=== PATIENT | female | born 1940 | race Caucasian/White ===

== ENCOUNTER 2018-11-13 21:18 | Inpatient (IN) | payer MEDICARE, OTHER ==
[~2018-11-13] VITALS: Ht 167.6 cm; Wt 93.3 kg
--- NOTE | 2018-11-13 21:50 | ERD ---
ER Documentation Chief Complaint Chief Complaint BIB Private amb form [facility] crea 1.53 & BUN 68 byDr. Jin HPI 78-year-old female brought in from [facility] for elevated creatinine and BUN. She was sent by her primary care doctor, Dr. Jin. Patient is a history of respiratory failure with history of trach(removed) and gastrostomy, hypertension, heart failure. Otherwise history is limited as the patient is nonverbal. ROS Unable to obtain due to chronic encephalopathy Allergies Allergies: Coded Allergies: Penicillins (Verified Allergy, Unknown, 03/14/18) amitriptyline (Verified Allergy, Unknown, 03/14/18) diazepam (Verified Allergy, Unknown, 03/14/18) zolpidem (Verified Allergy, Unknown, 03/14/18) PMhx/Soc Medical and Surgical Hx: Unable to obtain History of Surgery: Yes (Tracheostomy, gastrostomy) Hx Respiratory Disorders: Yes (Chronic respiratory failure with tracheostomy) Hx Cardiac Disorders: Yes (Hypertension, heart failure) Hx Psychiatric Problems: Yes (Behavior disorder) FmHx Unable to obtain Physical Exam Vitals Vital Signs Date Temp Pulse Resp B/P (MAP) Pulse Ox O2 O2 Flow FiO2 Time Delivery Rate 11/13/18 101 18 136/80 95 Room Air 21:25 (98) 11/13/18 97.2 98 18 136/80 95 21:19 (98) Physical Exam INITIAL VITAL SIGNS: Reviewed by me GENERAL: Patient is lying on gurney, in no apparent distress. Obese HEAD: Normocephalic EYES: EOMI. PERRL. ENT: Mucous membranes dry, no erythema or tonsillar exudates. Airway patent. NECK: Supple. No masses. Full range of motion. No meningismus. No lymphadenopathy RESPIRATORY: Clear to auscultation bilaterally. No wheezing, No rales, No rhonchi. No accessory muscle use. No retractions. CV: Regular rate and rhythm. No murmurs, No rubs or gallops. ABDOMEN: Soft, non-distended, non-tender. No guarding. No rebound. No pulsatile mass. Bowel sounds normal. EXTREMITIES: Trace bilateral upper and lower extremities pitting edema. No clu bbing or cyanosis. Pulses symmetric. No deficits or delays. Calves non-tender. No cords. SKIN: Warm and dry. Decreased turgor. No obvious rash, petechiae or purpura. NEUROLOGIC: Awake and alert. Not oriented at all, patient's baseline. Moves all extremities equally to painful stimuli. Result Diagram: 11/13/18220111/13/182201 Results 24 hrs Laboratory Tests Test 11/13/18 22:02 White Blood Count 11.8 10^3/ul Red Blood Count 5.07 10^6/ul Hemoglobin 16.5 g/dl Hematocrit 55.1 % Mean Corpuscular Volume 108.7 fl Mean Corpuscular Hemoglobin 32.5 pg Mean Corpuscular Hemoglobin Concent 29.9 g/dl Red Cell Distribution Width 13.5 % Platelet Count 119 10^3/UL Mean Platelet Volume 14.5 fl Immature Granulocytes % 0.600 % Neutrophils % 79.5 % Lymphocytes % 14.3 % Monocytes % 4.3 % Eosinophils % 0.9 % Basophils % 0.4 % Nucleated Red Blood Cells % 0.0 /100WBC Immature Granulocytes # 0.070 10^3/ul Neutrophils # 9.4 10^3/ul Lymphocytes # 1.7 10^3/ul Monocytes # 0.5 10^3/ul Eosinophils # 0.1 10^3/ul Basophils # 0.1 10^3/ul Nucleated Red Blood Cells # 0.0 10^3/ul Sodium Level 175 mmol/L Potassium Level 3.8 mmol/L Chloride Level 138 mmol/L Carbon Dioxide Level 26 mmol/L Anion Gap 11 Blood Urea Nitrogen 76 mg/dl Creatinine 1.69 mg/dl Est Glomerular Filtrat Rate mL/min mL/min Glucose Level 219 mg/dl Calcium Level 10.8 mg/dl Current Medications Medications Dose Sig/Lolly Start Time Status Last (Trade) Ordered Route PRN Stop Time Admin Dose Reason Admin Sodium 2,000 ml @ Q2H STAT 11/13/18 DC 11/13/18 Chloride 1,000 mls/hr IV 22:48 22:53 11/14/18 00:47 Procedures/MDM EMERGENT LABS AND DIAGNOSTIC STUDIES: Lab Results above were reviewed and interpreted by me. CBC: Evidence of hemoconcentration with elevated hemoglobin and mildly elevated white blood cell count. BMP: Hypernatremia with evidence of renal failure with elevated BUN and creatinine, likely secondary to prerenal azotemia. No other electrolyte abnormality. No evidence of acidosis. Hyperglycemic. UA: Pending Radiology Results as interpreted by Radiology below were reviewed by Farzana Blair MD: Chest x-ray: IMPRESSION: 1. Cardiomegaly and mild pulmonary mass congestion with mild bibasilar atelectasis, left greater than right. 2. Sclerotic changes in the right humeral head with osseous fragmentation may represent the sequela of remote trauma, and findings appear new over interval since prior CT chest dated 04/20/2018. 3. Differential considerations include a sclerotic osseous metastatic deposit with fracture pathologic bone. 4. Consider plain film examination of the right shoulder for further evaluation. Physician Rui Date Time Electronically viewed and signed by Physician Rui on 11/14/2018 01:40 Initial Nursing notes reviewed. Previous Medical Records requested via the Electronic Health Record. EMERGENCY DEPARTMENT COURSE / MEDICAL DECISION MAKING: Patient is presenting for abnormal labs. Vitals are unremarkable. Labs showed evidence of hypernatremia with prerenal azotemia. I suspect all of this is likely secondary to dehydration. Although she has some signs of fluid overload on exam, I do believe she is intravascularly depleted. 2 L of IV fluids were started. Urinalysis was ordered to rule out infection. Will defer any further workup to the inpatient team. Critical Care Time: 45 minutes Treatments/Evaluations: Close monitoring and treatment of unstable vital signs, cardiorespiratory, and neurologic status, while maintaining tight balance of fluid, respiratory, and cardiac interventions. This time includes discussing the case with the patient and the patients family. This time does not include all procedures stated elsewhere in this record. This time also includes reviewing old records, labs and radiological studies. This time includes examining and re- examining the patient. Additionally, this time also includes arranging care with admitting and consulting physicians. Accepting Care Team: Current data and ongoing care discussed. Time: Time of admission Primary Provider: Dr. Evelin Vance Consulting: None Outstanding Data: UA Departure Diagnosis: Primary Impression: Hypernatremia Additional Impression: Acute renal failure Acute renal failure type: unspecified Qualified Codes: N17.9 - Acute kidney failure, unspecified Condition: Critical JOSUE BLAIR MD Nov 13, 2018 21:50
[2018-11-13] MEDS ORDERED: SOD CHLORIDE 0.9% 2,000 ML IV STA (22:48)
[2018-11-13] MEDS ORDERED: ACETAMINOPHEN 325 MG TAB PO PRN (23:30)
[2018-11-13] MEDS ORDERED: ONDANSETRON 4 MG INJ IV PRN (23:30)
[2018-11-14] VITALS (15 sets, daily range): BP systolic 108–245; BP diastolic 56–192; PULSE 56–104; RESP 18–26; Ht 167.6 cm; Wt 93.3 kg
[2018-11-14] MEDS ORDERED: ONDANSETRON 4 MG INJ IV PRN
[2018-11-14] MEDS ORDERED: NACL 0.9% 3 ML SYG IV SCH
[2018-11-14] MEDS: SOD CHLORIDE 0.9% 1,000 ML IV SCH ×2 (00:23→07:31)
[2018-11-14] MEDS ORDERED: ACET325T45 PO (04:13)
[2018-11-14] MEDS ORDERED: ALBU2.5V3 NEB (04:14)
[2018-11-14] MEDS ORDERED: ASCO500C7 PO (04:14)
[2018-11-14] MEDS ORDERED: CARV3.12 PO (04:35)
[2018-11-14] MEDS ORDERED: FURO20TA3 PO (04:35)
[2018-11-14] MEDS ORDERED: BEN50 PO (04:35)
[2018-11-14] MEDS ORDERED: BISA10SU75 PR (04:35)
[2018-11-14] MEDS ORDERED: LORA10TA3 PO (04:35)
[2018-11-14] MEDS ORDERED: IPRA3AMP29 INHALATION (04:35)
[2018-11-14] MEDS ORDERED: LORA0.5T PO (04:35)
[2018-11-14] MEDS ORDERED: LEVO50TA7 PO (04:35)
[2018-11-14] MEDS ORDERED: [UNRECOGNIZED DRUG - CODE] PO (04:35)
[2018-11-14] MEDS ORDERED: HYDR-3980 PO ×2 (04:35)
[2018-11-14] MEDS ORDERED: DOCU50LI23 GTB (04:35)
[2018-11-14] MEDS ORDERED: MAGN400O19 PO (04:35)
[2018-11-14] MEDS ORDERED: ESCI10TA48 PO (04:35)
[2018-11-14] MEDS ORDERED: GUAI-173 PO (04:35)
[2018-11-14] MEDS ORDERED: NA P230E RC (04:35)
[2018-11-14] MEDS ORDERED: NYST1000 PO (04:35)
[2018-11-14] MEDS ORDERED: CLON0.5T14 PO (04:35)
[2018-11-14] MEDS ORDERED: ASPI-903 PO (04:35)
[2018-11-14] MEDS ORDERED: FOLI-49 PO (04:35)
[2018-11-14] MEDS ORDERED: DONE10TA7 PO (04:35)
[2018-11-14] MEDS ORDERED: POLY17PO28 PO (04:41)
[2018-11-14] MEDS ORDERED: QUET150T2 PO (04:41)
[2018-11-14] MEDS ORDERED: POTA20LI15 PO (04:41)
[2018-11-14] MEDS ORDERED: ROPI1TAB PO (04:41)
[2018-11-14] MEDS ORDERED: CLOP75TA27 PO (04:41)
[2018-11-14] MEDS ORDERED: SPIR25TA PO (04:41)
[2018-11-14] MEDS ORDERED: SENN-120 PO (04:41)
[2018-11-14] MEDS ORDERED: RANI150T5 PO (04:41)
[2018-11-14] MEDS: FAMOTIDINE 20 MG INJ IV SCH (08:30)
[2018-11-14] MEDS: ENOXAPARIN 30 MG/0.3 ML SYG SC SCH (08:35)
[2018-11-14] MEDS: DEXTROSE 5% 1,000 ML IV SCH ×2 (11:32→22:13)
--- NOTE | 2018-11-14 12:39 | HP ---
Date/Time of Note Date/Time of Note DATE: 11/14/18 TIME: 12:31 Assessment/Plan VTE Prophylaxis Risk score (from Ns)>0 risk: 6 SCD applied (from Ns): Yes Pharmacological prophylaxis: LMWH Lines/Catheters IV Catheter Type (from Nrs): Peripheral IV Urinary Cath still in place: Yes Reason Cath still needed: urinary retention Assessment/Plan Assessment/Plan -Hypernatremia. Continue IV fluids. Dr. Edwards is asked to see patient in nephrology consultation. -Acute kidney injury -Cardiomegaly and pulmonary vascular congestion per chest x-ray -Altered mental status likely secondary to hypernatremia however will obtain CT of the brain to rule out any acute pathology, will obtain stat ABG, TSH. -GNR UTI, start Rocephin, follow-up on final urine culture. Further recommendations based on clinical course. Plan of care discussed with Dr. Jin Result Diagram: 11/14/18 0604 11/14/18 0604 Results 24hrs Laboratory Tests Test 11/13/18 22:02 11/14/18 00:43 11/14/18 06:04 White Blood Count 11.8 #H 13.7 H Red Blood Count 5.07 # 5.26 Hemoglobin 16.5 #H 17.2 H Hematocrit 55.1 #H 57.2 H Mean Corpuscular Volume 108.7 H 108.7 H Mean Corpuscular Hemoglobin 32.5 32.7 Mean Corpuscular 29.9 L 30.1 L Hemoglobin Concent Red Cell Distribution Width 13.5 13.6 Platelet Count 119 #L 103 L Mean Platelet Volume 14.5 #H 14.7 H Immature Granulocytes % 0.600 H 0.300 Neutrophils % 79.5 H 76.5 Lymphocytes % 14.3 L 16.9 Monocytes % 4.3 4.7 Eosinophils % 0.9 1.2 Basophils % 0.4 0.4 Nucleated Red Blood Cells % 0.0 0.0 Immature Granulocytes # 0.070 H 0.040 H Neutrophils # 9.4 H 10.5 H Lymphocytes # 1.7 2.3 Monocytes # 0.5 0.7 Eosinophils # 0.1 0.2 Basophils # 0.1 0.1 Nucleated Red Blood Cells # 0.0 0.0 Sodium Level 175 *H 177 *H Potassium Level 3.8 3.9 Chloride Level 138 H 141 H Carbon Dioxide Level 26 25 Anion Gap 11 11 Blood Urea Nitrogen 76 H 65 H Creatinine 1.69 H 1.47 H Est Glomerular Filtrat Rate mL/min Glucose Level 219 115 # Calcium Level 10.8 H 10.5 H Urine Color YELLOW Urine Clarity SLIGHTLY CLOUDY A Urine pH 6.0 Urine Specific [place] 1.025 Urine Ketones NEGATIVE Urine Nitrite NEGATIVE Urine Bilirubin NEGATIVE Urine Urobilinogen 1+ H Urine Leukocyte Esterase 3+ H Urine Microscopic RBC 4 Urine Microscopic WBC 112 H Urine Bacteria FEW A Urine Mucus FEW A Urine Hemoglobin 1+ H Urine Glucose NEGATIVE Urine Total Protein NEGATIVE Hemoglobin A1c 5.8 Total Bilirubin 0.5 Direct Bilirubin 0.00 Indirect Bilirubin 0.5 Aspartate Amino 39 Transf (AST/SGOT) Alanine 49 Aminotransferase (ALT/SGPT) Alkaline Phosphatase 130 H Total Protein 7.6 Albumin 4.1 Globulin 3.50 H Albumin/Globulin Ratio 1.17 Prealbumin 23.6 HPI/ROS Admit Date/Time Admit Date/Time Nov 13, 2018 at 23:15 Hx of Present Illness The patient is 78-year-old female with history of respiratory failure with tracheostomy and subsequent decannulation, [place] syndrome, anxiety disorder heart failure, hypertension, osteoarthritis, dementia with behavioral disturbances, hypothyroidism, GERD history of G-tube placement and removal, according to the records patient was on nectar thick [facility] at [facility]. [facility] from [facility] for hypernatremia and acute kidney injury. During evaluation in the emergency room patient was found to have sodium 177, an elevated BUN and creatinine, was giving IV fluids and admitted for further evaluation and management to telemetry floor. Patient is obtunded and cannot provide any medical history most of the history was obtained from medical records and talking to nursing staff. ROS UnAble to obtain due to patient's condition PMH/Family/Social Past Medical History per HPI Medications Current Medications Ondansetron HCl (Zofran Inj) 4 mg ER BRIDGE PRN IV NAUSEA/VOMITING; Start 11/13/18 at 23:30; Stop 11/14/18 at 23:29 Acetaminophen (Tylenol Tab) 650 mg ER BRIDGE PRN PO .MILD PAIN 1-3 OR TEMP; Start 11/13/18 at 23:30; Stop 11/14/18 at 23:29 IV Flush (NS 3 ml) 3 ml PER PROTOCOL IV ; Start 11/14/18 at 00:00 Ondansetron HCl (Zofran Inj) 4 mg Q6H PRN IV NAUSEA/VOMITING; Start 11/14/18 at 00:00 Acetaminophen (Tylenol Tab) 650 mg Q6H PRN PO .PAIN 1-3 OR TEMP; Start 11/14/18 at 00:00 Morphine Sulfate (morphine) 2 mg Q4H PRN IV .PAIN 7-10; Start 11/14/18 at 00:00 Famotidine (Pepcid Iv) 20 mg DAILY IV Last administered on 11/14/18at 08:30; Admin Dose 20 MG; Start 11/14/18 at 09:00 Enoxaparin Sodium (Lovenox) 30 mg DAILY SC Last administered on 11/14/18at 08:35; Admin Dose 30 MG; Start 11/14/18 at 09:00 Dextrose 1,000 ml @ 100 mls/hr Q10H IV Last administered on 11/14/18at 11:32; Admin Dose 100 MLS/HR; Start 11/14/18 at 11:30 Coded Allergies: Penicillins (Unverified Allergy, Unknown, 11/14/18) amitriptyline (Unverified Allergy, Unknown, 11/14/18) diazepam (Unverified Allergy, Unknown, 11/14/18) zolpidem (Unverified Allergy, Unknown, 11/14/18) Past Surgical History Past Surgical Hx: other (Status post tracheostomy and subsequent decannulation, status post G-tube placement and subsequent removal) Family History Significant Family History: no pertinent family hx Social History Unable to obtain due to patient's condition Smoking Status: Unknown if ever smoked Exam/Review of Systems Vital Signs Vitals Vital Signs Date Temp Pulse Resp B/P (MAP) Pulse Ox O2 O2 Flow FiO2 Time Delivery Rate 11/14/18 98.0 104 22 108/74 Nasal 12:15 (85) Cannula 11/14/18 96 08:06 Intake and Output 11/13/18 11/13/18 11/14/18 1515:00 23:00 07:00 IntakeIntake Total 1400 ml OutputOutput Total 150 ml BalanceBalance 1250 ml Exam Constitutional: frail Head: normocephalic, atraumatic Neck: supple Respiratory: diminished breath sounds Cardiovascular: regular rate and rhythm Gastrointestinal: soft, non-tender Extremities: normal pulses Neurological: unresponsive SHANE DOWNEY Nov 14, 2018 12:39
[2018-11-14] MEDS: CEFTRIAXONE 1 GM/50 ML (PMX) 50 ML IVPB SCH (14:27)
--- NOTE | 2018-11-14 16:47 | CONS ---
DATE OF ADMISSION: 11/13/2018 DATE OF CONSULTATION: 11/14/2018 TYPE OF CONSULTATION: Nephrology. REASON FOR CONSULTATION: Acute kidney injury, hypernatremia. PHYSICIAN REQUESTING CONSULT: Shahriar Jin MD HISTORY OF PRESENT ILLNESS: This is an 78-year-old female with a past medical history of chronic res piratory failure, status post tracheostomy with decannulation, history of dysphagia, status post PEG with PEG removal, history of behavior disorder, history of hypertension and CHF, who presents to [facility] from [facility] due to abnormal laboratory data. The patient was noted to have elevated BUN and creatinine at [facility]. As a result, she came into the emergency ro om. Upon arrival, the patient had laboratory data drawn which showed a sodium level of 175, BUN 76, creatinine 1.69. The patient had a chest x-ray which showed evidence of atelectasis, mild pulmonary congestion. The patient in the emergency room was started on IV hydration and transferred to telemet for evaluation. In terms of patient's renal history, the patient's previous baseline creatinine was noted to be 0.77 mg/dL in 05/2018. There have been no reports of any hemoptysis, hematemesis, hematochezia. PAST MEDICAL HISTORY: As stated above, history of respiratory failure, history of dysphagia, history of hypertension, heart failure, behavior disorder. PAST SURGICAL HISTORY: Status post tracheostomy, status post decannulation, status post PEG, status post PEG removal. FAMILY HISTORY: No family history of kidney disease. SOCIAL HISTORY: Lives at a [facility] facility. MEDICATIONS: Have been reviewed. REVIEW OF SYSTEMS: Unable to do adequate review of systems as the patient is obtunded. Pertinent po sitives stated in HPI, as obtained by reviewing medical records and speaking to hospital staff, other long negative. PHYSICAL EXAMINATION: VITAL SIGNS: Blood pressure is 129/83, respiratory rate 22, pulse 70, temperature 98.0. HEENT: Head is normocephalic. NECK: Supple. Noted previous ostomy. HEART: Tachycardic. LUNGS: Show diminished breath sounds at base. ABDOMEN: Soft, nontender to palpation. No rebound or guarding. EXTREMITIES: Negative for clubbing, cyanosis. No edema. DERMATOLOGIC: No rashes. The patient has poor skin turgor. MUSCULOSKELETAL: No joint effusions. NEUROLOGIC: Limited exam. The patient is unable to cooperate. LABORATORY DATA: Show sodium 177, potassium is 3.9, chloride 141, BUN 65, creatinine 1.47, calcium 7 .5. White count 13.7, hemoglobin 17.2, platelet count is 103. The patient's initial urinalysis was reviewed, which showed positive pyuria and patient's urine cultures grew out gram-negative rods. ASSESSMENT AND PLAN: This is an 78-year-old female who presents with: 1. Nonoliguric acute kidney injury with previous baseline creatinine of 0.77 mg/dL on 05/2018. Etio logy of acute kidney injury is secondary to hemodynamics, volume depletion, dehydration. The possibi lity of interstitial nephritis is a consideration. The patient's urinalysis was reviewed, which does show evidence of pyuria. Lower suspicion for acute glomerulonephritis or vasculitis given the ebonie nt's clinical presentation. Recommendation is to continue current medical management. Continue IV h ydration. Continue antibiotic therapy. We will continue to renally dose all meds, avoid nephrotoxin s. A full evaluation including a repeat urinalysis, urine electrolytes and renal ultrasound will be obtained. We will otherwise continue to monitor renal function daily. 2. Hypernatremia. The patient has a free water deficit of approximately 3.5 liters. Etiology is li casey due to insensible losses and decreased oral intake. Lower suspicion for diabetes insipidus. A full evaluation will be done. We will check urine sodium, urine osmolality. We will start the patie nt on D5 water 100 mL an hour. We will monitor serial sodium levels closely to ensure correction of no more than 10 to 12 mEq in 24-hour period. 3. Mineral bone disorder. The patient is hypocalcemic, possibly due to acute kidney injury. We rody l continue to monitor calcium levels closely. 4. Polycythemia. Etiology is likely due to volume depletion. Other possibilities will be considere d. We will continue to monitor closely. 5. Acute encephalopathy. Etiology is multifactorial and toxic metabolic due to electrolyte abnormal ities. Continue to monitor. Continue current treatment plan as stated above. 6. Urinary tract infection. The patient's urine culture is positive for gram-negative rods. Urinal ysis does show pyuria. We would recommend to start the patient on antibiotic therapy. Continue curr ent medical management and monitor. 7. History of respiratory failure. Thank you, Dr. Jin, for this interesting consult. It will be a pleasure to follow the patient w kike reaves throughout the hospital course. Dictated By: GLENN NATH/MARC Conf#: [id number] DID#: [id number] CC: CARLOS A LLANES MD;*EndCC*
[2018-11-14] MEDS ORDERED: ACETAMINOPHEN 650 MG SUPP PR PRN (21:30)
[2018-11-14] MEDS: morphine 2 MG INJ IV PRN (23:30)
[2018-11-15] VITALS (38 sets, daily range): BP systolic 93–160; BP diastolic 39–135; PULSE 75–99; RESP 11–26
[2018-11-15] MEDS ORDERED: POTASSIUM CHLORIDE 20 MEQ POWDER FOR ORAL SOLN NGT ONE (08:00)
[2018-11-15] MEDS: DEXTROSE 5% 1,000 ML IV SCH ×3 (08:05→18:09)
[2018-11-15] MEDS: FAMOTIDINE 20 MG INJ IV SCH (08:05)
--- NOTE | 2018-11-15 08:08 | PN ---
DATE: 11/15/2018 SUBJECTIVE: The patient is critically ill, was transferred from telemetry to intensive care unit. T he patient is currently on a facemask. No other acute events noted overnight. No hemoptysis, hemate mesis, or hematochezia. OBJECTIVE: VITAL SIGNS: Blood pressure is 93/61, respirations 18, pulse 98, temperature 99.7. HEENT: Head is normocephalic. NECK: Supple. HEART: Regular rate. LUNGS: Show diminished breath sounds at the base. ABDOMEN: Soft, nontender to palpation without rebound or guarding. EXTREMITIES: Negative for clubbing, cyanosis. Trace edema. DERMATOLOGIC: No rashes. MUSCULOSKELETAL: No joint effusion. NEUROLOGIC: No change in exam. MEDICATIONS: Reviewed. LABORATORY DATA: Reviewed. The patient's ABG was reviewed. Urinalysis was reviewed. The patient h as a FENa greater than 1%, urine osmolarity of 896, protein creatinine ratio 500 mg per gram of creat inine. IMAGING STUDIES: Chest x-ray, renal ultrasound was reviewed. Renal ultrasound was unremarkable. ASSESSMENT AND PLAN: 1. Nonoliguric acute kidney injury with previous baseline creatinine of 0.77 mg/dL. Etiology of acu te kidney injury is secondary to hemodynamics, volume depletion. The patient's renal function has sl owly been improving with IV hydration. The patient's urinalysis was reviewed. The patient has nongl omerular proteinuria, renal ultrasound shows no evidence of obstruction. At this point, we would con tinue current treatment plan. Continue IV hydration. Continue supportive care, renally dose all med icines. 2. Hypernatremia, etiology is secondary to insensible losses and decreased oral intake. The patient has no evidence of diabetes insipidus. The patient has a free water deficit of approximately 6 lite rs. At this point, we will continue hypertonic fluid. Continue free water flushes, monitor serum so dium levels closely to ensure correction of no more than 10 to 12 mEq in a 24-hour period. 3. Mineral bone disorder. We will continue to monitor calcium and phosphorus levels. 4. Polycythemia, likely due to volume depletion. Continue to monitor. 5. Acute encephalopathy, etiology is toxic metabolic. Continue to monitor. 6. Sepsis secondary to urinary tract infection. Continue current antibiotic regimen. Cultures have been reviewed. 7. Acute respiratory failure, etiology may be secondary to sepsis, atelectasis, questionable pneumon ia. Continue current medical management. Continue nebulizers. Continue face mask. Consider pulmon gage evaluation. 8. Hypokalemia. We will replete with potassium chloride. Dictated By: GLENN FLOYD DO NR/NTS Conf#: [id number] DID#: [id number] CC: CARLOS A LLANES MD;*EndCC*
[2018-11-15] MEDS: ENOXAPARIN 30 MG/0.3 ML SYG SC SCH (08:09)
[2018-11-15] MEDS: morphine 2 MG INJ IV PRN ×3 (09:22→18:52)
[2018-11-15] MEDS: CEFTRIAXONE 1 GM/50 ML (PMX) 50 ML IVPB SCH (12:54)
--- NOTE | 2018-11-15 16:31 | PN ---
Date/Time of Note Date/Time of Note DATE: 11/15/18 TIME: 16:28 Assessment/Plan VTE Prophylaxis Risk score (from Ns)>0 risk: 7 SCD applied (from [facility] [place] Yes SCD contraindicated: other Pharmacological prophylaxis: other Pharm contraindication: other Lines/Catheters IV Catheter Type (from [facility]): Peripheral IV Urinary Cath still in place: Yes Reason Cath still needed: urinary retention Assessment/Plan Assessment/Plan -Hypernatremia. Continue IV fluids. Dr. Edwards is asked to see patient in nephrology consultation. -Acute kidney injury -Cardiomegaly and pulmonary vascular congestion per chest x-ray -Altered mental status likely secondary to hypernatremia however will obtain CT of the brain to rule out any acute pathology, will obtain stat ABG, TSH. -GNR UTI, start Rocephin, follow-up on final urine culture. Critical care time spent 35 mins.Further recommendations based on clinical course. Plan of care discussed with Dr. Jin Result Diagram: 11/14/18 0604 11/15/18 1439 Results 24hrs Laboratory Tests Test 11/14/18 20:17 11/14/18 20:45 11/15/18 05:21 11/15/18 07:00 Bedside Glucose 93 Blood Gas Blood arterial Blood arterial Specimen Source Arterial Blood 11/14/2018 8:50: 11/15/2018 7:15: Date Drawn 21 PM 53 AM Arterial Blood 7.414 7.368 pH (Temp corrected) Arterial Blood 35.5 40.6 pCO2 (Temp correct) Arterial Blood 344.6 H 169.7 H pO2 (Temp corrected) Arterial Blood 22.2 22.8 HCO3 Arterial Blood -1.7 -2.3 Base Excess Arterial Blood 99.4 98.9 Oxygen Saturatio n Tru Test ACCEPTAB ACCEPTAB Arterial Blood Left Radial Left Radial Gas Puncture Site Arterial 0.3 0.3 Blood Carboxyhem oglobin Arterial Blood 0.4 0.3 Methemoglobin Blood Gas A-a O2 195.8 H 105.0 H Differential Oxyhemoglobin 98.7 98.3 Percent Blood Gas 37.0 37.0 Temperature Blood Gas MASK - NRB MASK - SIMPLE Modality FiO2 81.0 45.0 Blood Gas VLAD TM Notified Whom Blood Gas 11/14/2018 9:05: 11/15/2018 7:30: Notified Time 12 PM 33 AM Sodium Level 169 *H Potassium Level 3.4 L Chloride Level 141 H Carbon Dioxide 21 Level Anion Gap 7 Blood Urea 48 H Nitrogen Creatinine 1.30 H Est Glomerular Filtrat Rate mL/min Glucose Level 194 Calcium Level 9.6 Phosphorus Level 2.8 Magnesium Level 2.2 Total Bilirubin 1.0 Direct Bilirubin 0.00 Indirect 1.0 Bilirubin Aspartate Amino 48 H Transf (AST/SGOT ) Alanine 35 Aminotransferase (ALT/SGPT) Alkaline 125 H Phosphatase Total Protein 7.0 Albumin 3.5 Globulin 3.50 H Albumin/Globulin 1.00 Ratio Test 11/15/18 14:39 Sodium Level 161 *H Potassium Level 4.9 Chloride Level 135 H Carbon Dioxide 24 Level Anion Gap 2 L Blood Urea 44 H Nitrogen Creatinine 1.06 H Est Glomerular Filtrat Rate mL/min Glucose Level 161 Calcium Level 9.3 Subjective 24 Hr Interval Summary Subjective hx not possible: pt critical Constitutional: requiring O2 Exam/Review of Systems Exam Vitals Vital Signs Date Temp Pulse Resp B/P (MAP) Pulse Ox O2 O2 Flow FiO2 Time Delivery Rate 11/15/18 98.6 91 14 159/98 100 Nasal 2.0 16:00 (118) Cannula 11/15/18 45 02:20 Intake and Output 11/14/18 11/14/18 11/15/18 1515:00 23:00 07:00 IntakeIntake Total 500 ml 0 ml 800 ml OutputOutput Total 530 ml 270 ml BalanceBalance 500 ml -530 ml 530 ml Constitutional: frail Psych: nl mood/affect Eyes: EOMI ENMT: nl external ears & nose Respiratory: diminished breath sounds Cardiovascular: nl pulses, other Gastrointestinal: soft Musculoskeletal: muscle weakness Extremities: normal pulses Results Results 24hrs Laboratory Tests Test 11/14/18 20:17 11/14/18 20:45 11/15/18 05:21 11/15/18 07:00 Bedside Glucose 93 Blood Gas Blood arterial Blood arterial Specimen Source Arterial Blood 11/14/2018 8:50: 11/15/2018 7:15: Date Drawn 21 PM 53 AM Arterial Blood 7.414 7.368 pH (Temp corrected) Arterial Blood 35.5 40.6 pCO2 (Temp correct) Arterial Blood 344.6 H 169.7 H pO2 (Temp corrected) Arterial Blood 22.2 22.8 HCO3 Arterial Blood -1.7 -2.3 Base Excess Arterial Blood 99.4 98.9 Oxygen Saturatio n Tru Test ACCEPTAB ACCEPTAB Arterial Blood Left Radial Left Radial Gas Puncture Site Arterial 0.3 0.3 Blood Carboxyhem oglobin Arterial Blood 0.4 0.3 Methemoglobin Blood Gas A-a O2 195.8 H 105.0 H Differential Oxyhemoglobin 98.7 98.3 Percent Blood Gas 37.0 37.0 Temperature Blood Gas MASK - NRB MASK - SIMPLE Modality FiO2 81.0 45.0 Blood Gas NV TM Notified Whom Blood Gas 11/14/2018 9:05: 11/15/2018 7:30: Notified Time 12 PM 33 AM Sodium Level 169 *H Potassium Level 3.4 L Chloride Level 141 H Carbon Dioxide 21 Level Anion Gap 7 Blood Urea 48 H Nitrogen Creatinine 1.30 H Est Glomerular Filtrat Rate mL/min Glucose Level 194 Calcium Level 9.6 Phosphorus Level 2.8 Magnesium Level 2.2 Total Bilirubin 1.0 Direct Bilirubin 0.00 Indirect 1.0 Bilirubin Aspartate Amino 48 H Transf (AST/SGOT ) Alanine 35 Aminotransferase (ALT/SGPT) Alkaline 125 H Phosphatase Total Protein 7.0 Albumin 3.5 Globulin 3.50 H Albumin/Globulin 1.00 Ratio Test 11/15/18 14:39 Sodium Level 161 *H Potassium Level 4.9 Chloride Level 135 H Carbon Dioxide 24 Level Anion Gap 2 L Blood Urea 44 H Nitrogen Creatinine 1.06 H Est Glomerular Filtrat Rate mL/min Glucose Level 161 Calcium Level 9.3 Medications Medication Current Medications IV Flush (NS 3 ml) 3 ml PER PROTOCOL IV ; Start 11/14/18 at 00:00 Ondansetron HCl (Zofran Inj) 4 mg Q6H PRN IV NAUSEA/VOMITING; Start 11/14/18 at 00:00 Acetaminophen (Tylenol Tab) 650 mg Q6H PRN PO .PAIN 1-3 OR TEMP; Start 11/14/18 at 00:00 Morphine Sulfate (morphine) 2 mg Q4H PRN IV .PAIN 7-10 Last administered on 11/15/18at 13:26; Admin Dose 2 MG; Start 11/14/18 at 00:00 Famotidine (Pepcid Iv) 20 mg DAILY IV Last administered on 11/15/18at 08:05; Admin Dose 20 MG; Start 11/14/18 at 09:00 Enoxaparin Sodium (Lovenox) 30 mg DAILY SC Last administered on 11/15/18at 08:09; Admin Dose 30 MG; Start 11/14/18 at 09:00 Dextrose 1,000 ml @ 100 mls/hr Q10H IV Last administered on 11/15/18at 08:05; Admin Dose 100 MLS/HR; Start 11/14/18 at 11:30 Ceftriaxone Sodium 50 ml @ 100 mls/hr Q24H IVPB Last administered on 11/15/18at 12:54; Admin Dose 100 MLS/HR; Start 11/14/18 at 13:30 Acetaminophen (Tylenol Supp) 650 mg Q6H PRN NM ELEVATED TEMPERATURE Last administered on 11/14/18at 23:33; Admin Dose 650 MG; Start 11/14/18 at 21:30 Clonidine (Catapres) 0.1 mg Q6H PRN PO PRN SBP > 160; Start 11/15/18 at 00:00 Hydralazine HCl (Apresoline) 25 mg Q6 PRN PO PRN SBP > 160; Start 11/15/18 at 00:00 JASEN SOTOMAYOR Nov 15, 2018 16:31
[2018-11-16] VITALS (39 sets, daily range): BP systolic 55–125; BP diastolic 33–96; PULSE 73–96; RESP 10–25
[2018-11-16] MEDS: morphine 2 MG INJ IV PRN (00:18)
[2018-11-16] MEDS: DEXTROSE 5% 1,000 ML IV SCH ×2 (03:54→13:42)
--- NOTE | 2018-11-16 08:00 | PN ---
DATE: 11/16/2018 SUBJECTIVE: The patient remains in serious condition. The patient's mental status is slowly improvi ng. No other acute events noted. No hemoptysis, hematemesis or hematochezia. OBJECTIVE: VITAL SIGNS: Blood pressure is 120/70, respirations 11, pulse 80, temperature 98.6. I's and O's wer e reviewed. HEENT: Head is normocephalic. NECK: Supple. HEART: Regular rate. LUNGS: Show diminished breath sounds at the base. ABDOMEN: Soft, nontender to palpation without rebound or guarding. EXTREMITIES: Negative for clubbing, cyanosis. Trace edema. DERMATOLOGIC: No rashes. MUSCULOSKELETAL: No joint effusion. NEUROLOGIC: No change in exam. MEDICATIONS: The patient's medications have been reviewed. LABORATORY DATA: Shows sodium 158, potassium 3.7, chloride 127, BUN 30, creatinine 0.94, phosphorus is 2.4. White count 12.6, hemoglobin 13.2, platelet count is 56. The patient's imaging studies were reviewed. Cultures were reviewed. ASSESSMENT AND PLAN: 1. Nonoliguric acute kidney injury with previous baseline creatinine of 0.77 mg/dL. Etiology of SALVATORE is secondary to hemodynamics, volume depletion. The patient's renal function has slowly been improv ing with IV hydration. We will continue current treatment plan. Continue IV fluids, continue to yadiel ally dose all meds, avoid nephrotoxins. 2. Hypernatremia, etiology secondary to insensible losses, decreased oral intake. No evidence of di abetes insipidus as the patient's urinary osmolarity is appropriately elevated. The patient's sodium levels have slowly been improving with appropriate correction of 10 mEq per liter in the last 24 shelbi rs. Plan would be to continue current medical management. Continue D5 water at 100 mL an hour. Con tinue free water flushes 200 mL q.4 hours. Continue to monitor serial sodium levels closely to ensur e correction of no more than 10 to 12 mEq in a 24-hour period. 3. Mineral bone disorder. The patient is hypophosphatemic. Will replete with sodium phosphate. 4. Acute encephalopathy, etiology is toxic metabolic. Continue to monitor. 5. Sepsis secondary to urinary tract infection. Continue current antibiotic regimen. 6. Acute respiratory failure secondary to sepsis, atelectasis. Continue current medical management, nebulizers. 7. Hypokalemia. resolved. Dictated By: GLENN NATH/MARC Conf#: [id number] DID#: [id number] CC: CARLOS A LLANES MD;*EndCC*
[2018-11-16] MEDS: FAMOTIDINE 20 MG INJ IV SCH (08:53)
[2018-11-16] MEDS: NEUTRA-PHOS 250 MG PACKET GTB SCH ×2 (08:53→21:21)
[2018-11-16] MEDS: ENOXAPARIN 30 MG/0.3 ML SYG SC SCH (08:55)
[2018-11-16] MEDS: CEFTRIAXONE 1 GM/50 ML (PMX) 50 ML IVPB SCH (13:42)
--- NOTE | 2018-11-16 20:04 | HP ---
DATE OF ADMISSION: 11/13/2018 LOCATION: Intensive care unit. SUBJECTIVE: Followup on hyponatremia, acute kidney injury, metabolic encephalopathy, urinary tract i nfection, history of CHF, dementia and hypothyroidism. The patient is breathing comfortably, remains awake; however, confused, occasionally responds appropriately. The patient's blood pressure has bee n fluctuating between 95 systolic up to 116. PHYSICAL EXAMINATION: GENERAL: The patient looks frail and weak. The patient was noted to be lethargic but arousable and attempts to follow simple commands. VITAL SIGNS: Temperature 98.7, pulse 82, respirations 20, blood pressure 95/69, O2 saturation 99% on 2 liters nasal cannula. HEENT: Atraumatic, normocephalic. Conjunctivae and lids normal. NECK: Old tracheostomy scar. She does not have any signs of infection or drainage. CHEST: Fairly clear. No use of accessory muscles. CARDIOVASCULAR: S1, S2 normal. The patient is in sinus rhythm on monitor. ABDOMEN: Soft, nondistended, nontender, no palpable mass. EXTREMITIES: No edema, clubbing or cyanosis. NEUROLOGICAL: The patient is weak, lethargic, but does follow simple commands. She has generalized weakness in all extremities. LABORATORY DATA: Labs done this morning, WBC 12.6, hemoglobin 13.2, platelet 56. Sodium 150, down f rom 158 yesterday, BUN 25, creatinine 0.7, glucose 139, calcium 9 and magnesium 1.9. IMPRESSION AND PLAN: 1. Metabolic encephalopathy, slightly better with improvement in sodium and acute kidney injury. Co ntinue to monitor in the ICU. The patient still is not awake enough to eat. We will continue n.p.o. and give IV fluids. Due to hyponatremia, the patient is receiving D5W. 2. Sepsis due to urinary tract infection. Continue IV Rocephin. The patient does continue to have thrombocytopenia probably due to sepsis. We will continue to monitor. We will hold off on Lovenox a t this time. 3. History of hypertension. Currently, the patient's blood pressure is well controlled. 4. Hypothyroidism. Due to n.p.o. status, Synthroid is on hold. The patient's TSH was 0.49. 5. Hypophosphatemia. Continue sodium phosphate. The patient remains critically ill. We will mikey nue to monitor in the ICU. Total critical care time spent 30 minutes. Dictated By: WALDO CLEARY MD AB/MARC Conf#: [id number] DID#: [id number] CC: CARLOS A LLANES MD;*EndCC*
[2018-11-17] VITALS (16 sets, daily range): BP systolic 109–148; BP diastolic 49–103; PULSE 82–94; RESP 13–21
[2018-11-17] MEDS: DEXTROSE 5% 1,000 ML IV SCH (00:33)
[2018-11-17] MEDS ORDERED: VANCOMYCIN IV PER PHARMACY XX SCH (02:30)
[2018-11-17] MEDS ORDERED: VANCOMYCIN HCL 1.5 GM in SOD CHLORIDE 0.9% 250 ML IVPB ONE (04:00)
[2018-11-17] MEDS ORDERED: POTASSIUM CHLORIDE 20 MEQ POWDER FOR ORAL SOLN GTB ONE (05:30)
[2018-11-17] MEDS ORDERED: POTASSIUM CHLORIDE 20 MEQ POWDER FOR ORAL SOLN NGT ONE (07:30)
[2018-11-17] MEDS ORDERED: MAGNESIUM SULFATE 2 GM/50 ML 50 ML IVPB ONE (08:00)
--- NOTE | 2018-11-17 08:14 | PN ---
DATE: 11/17/2018 SUBJECTIVE: The patient is clinically improving, more alert. No acute events noted. No hemoptysis, hematemesis or hematochezia. OBJECTIVE: VITAL SIGNS: Blood pressure is 148/76, respirations 17, pulse 89, temperature 98.9. I's and O's rev iewed. HEENT: Head is normocephalic. NECK: Supple. HEART: Regular rate. LUNGS: Show diminished breath sounds at the base. ABDOMEN: Soft, nontender to palpation without rebound or guarding. EXTREMITIES: Negative for clubbing, cyanosis. Trace edema. DERMATOLOGIC: No rashes. MUSCULOSKELETAL: No joint effusion. NEUROLOGIC: No change in exam. MEDICATIONS: Reviewed. LABORATORY DATA: Has been reviewed. The patient has a sodium 145, potassium 2.8, magnesium 1.9. Wh ite count is 7.4, hemoglobin 11.4. MICROBIOLOGY: Reviewed. ASSESSMENT AND PLAN: 1. Nonoliguric acute kidney injury with previous baseline creatinine of 0.7 mg/dL. Etiology of acut e kidney injury is secondary to hemodynamics, volume depletion. The patient's renal function has imp roved with IV fluids. Will continue current treatment plan. Continue supportive care, renally dose all meds. Will deescalate IV fluids. 2. Hypernatremia. Etiology is secondary insensible losses, decreased oral intake. The patient's so dium levels have been improving. We will continue free water flushes of 200 mL q.[address] hypotonic IV fluids and continue to monitor serial sodium levels. 3. Hypokalemia. Etiology is secondary to total body deficit and hypomagnesemia. Will continue to r eplete with potassium chloride, adjust IV fluids, correct underlying hypomagnesemia. 4. Hypomagnesemia. Replete with magnesium sulfate. 5. Mineral bone disorder. Monitor calcium and phosphorus levels. 6. Acute encephalopathy. Etiology is toxic metabolic. 7. Sepsis secondary to urinary tract infection. The patient is on antibiotic therapy, continue. 8. Acute respiratory failure secondary to sepsis, atelectasis. The patient is clinically improving. Continue medical management. Dictated By: GLENN NATH/MARC Conf#: [id number] DID#: [id number] CC: CARLOS A LLANES MD;*End*
[2018-11-17] MEDS: D5W-0.45 NACL + KCL 40 MEQ 1,000 ML IV SCH (08:47)
[2018-11-17] MEDS: FAMOTIDINE 20 MG INJ IV SCH (08:48)
[2018-11-17] MEDS: NEUTRA-PHOS 250 MG PACKET GTB SCH ×2 (08:48→20:18)
[2018-11-17] MEDS: CEFTRIAXONE 1 GM/50 ML (PMX) 50 ML IVPB SCH (13:28)
[2018-11-18 01:25] VITALS: BP 126/58; PULSE 91; RESP 18
[2018-11-18] MEDS: D5W-0.45 NACL + KCL 40 MEQ 1,000 ML IV SCH ×2 (04:00→08:07)
[2018-11-18] MEDS: VANCOMYCIN HCL 1.25 GM in DEXTROSE 5% 250 ML IVPB SCH (04:39)
[2018-11-18 07:32] VITALS: BP 123/62; PULSE 85; RESP 16
[2018-11-18] MEDS: FAMOTIDINE 20 MG INJ IV SCH (08:20)
[2018-11-18] MEDS: NEUTRA-PHOS 250 MG PACKET GTB SCH ×2 (08:20→21:00)
[2018-11-18] MEDS: ASCORBIC ACID 500 MG TAB NGT SCH (08:20)
[2018-11-18] MEDS: ZINC SULFATE 220 MG CAP NGT SCH (08:21)
--- NOTE | 2018-11-18 08:41 | PN ---
DATE: 11/18/2018 SUBJECTIVE: The patient was transferred from the intensive care unit to med/surg. No other events n oted. No hemoptysis, hematemesis or hematochezia. OBJECTIVE: VITAL SIGNS: Blood pressure is 123/62, pulse 85, respirations 16, temperature 98.9. HEENT: Head is normocephalic. NECK: Supple. HEART: Regular rate. LUNGS: Show diminished breath sounds at the base. ABDOMEN: Soft, nontender to palpation without rebound or guarding. EXTREMITIES: Negative for clubbing, cyanosis, no edema. DERMATOLOGIC: No rashes. MUSCULOSKELETAL: No joint effusion. NEUROLOGIC: No change in exam. MEDICATIONS: The patient's medications have been reviewed. LABORATORY DATA: Reviewed. The patient's phosphorus is 2.1. White count 7.4, hemoglobin 11.5, plat elet count 70. ASSESSMENT AND PLAN: 1. Nonoliguric acute kidney injury with previous baseline creatinine of 0.7 mg/dL. Etiology of acut e kidney injury is secondary to hemodynamics, volume depletion. The patient's renal functions has im proved. We will continue current treatment plans, supportive care, renally dose all medicines, mikey nue to deescalate IV fluids. 2. Hypernatremia, improved. Continue free water flushes. Continue hypertonic fluid. Monitor close ly. 3. Hypokalemia. Continue to monitor and replete. 4. Hypomagnesemia. Continue to monitor and replete. 5. Mineral bone disorder. The patient is hypophosphatemic. Replete with potassium phosphate. 6. Acute encephalopathy, etiology is toxic metabolic. 7. Sepsis secondary to urinary tract infection. Continue current antibiotic regimen. 8. Acute respiratory failure secondary to sepsis, atelectasis. The patient is clinically improving. Continue current treatment plan. Dictated By: GLENN FLOYD DO NR/NTS Conf#: [id number] DID#: [id number] CC: CARLOS A LLANES MD;*EndCC*
[2018-11-18] MEDS ORDERED: NEUTRA-PHOS 250 MG PACKET GTB SCH (09:00)
--- NOTE | 2018-11-18 12:39 | CONS ---
Assessment/Plan Assessment/Plan Hospital Course (Demo Recall) #Thrombocytopenia -this may sepsis related or 2/2 to her antibiotics. -still need to rule out DIC and TTP. will check DIC panel, LDH and peripheral smear -would not transfuse platelets at this time unless platelet count is < 20K -check abdominal ultrasound -r/o viral etiology. will check HIV and hepatitis #Urosepsis -continue antibiotics #ARF -management per nephrology. CR now normal #hypernatremia -improved -Na 144 Thank you for the opportunity to participate in this patients care A total of 40 minutes of face to face time was spent speaking with the patient, of which greater than 50% was spent in counseling and coordination of care and the detailed question and answer session. Consultation Date/Type/Reason Admit Date/Time Nov 13, 2018 at 23:15 Date of Consultation: Nov 18, 2018 Type of Consult Hematology Reason for Consultation thrombocytopenia Requesting Provider: WLADO CLEARY MD Date/Time of Note DATE: 11/18/18 TIME: 12:34 Hx of Present Illness 78 yo female, with h/o respiratory failure with multiple medical problems including tracheostomy, hypothyrdoism, dementia, Guillan Ray, anxiety and Heart failure who presented to ER from her long term with severe hypernatremia and Na 177. Pt was initially treated in the ICU and since been transferred to med/surg. The patient is currently being treated for urosepsis and GPC in blood. On admission on 11/13/18 pts platelets were noted to be 119 and on 11/16/18 there were noted to drop to 56. Yesterday they did increase to 70. PT has no evidence of GI bleed, no signs of spontaneous bleeding or bruising. She has not needed any blood or platelet transfusion since admission. Constitutional: disoriented Eyes: no complaints ENT: no complaints Respiratory: no complaints, pain Cardiovascular: no complaints Gastrointestinal: no complaints Genitourinary: no complaints Musculoskeletal: no complaints Skin: no complaints Neurologic: no complaints Past Medical History respiratory failure with tracheostomy and subsequent decannulation Hannah Ray syndrome anxiety disorder heart failure hypertension osteoarthritis dementia with behavioral disturbances hypothyroidism GERD history of G-tube placement and removal Home Meds Reported Medications Spironolactone* (Aldactone*) 25 Mg Tablet, 25 MG PO DAILY for HTN, #30 TAB 11/14/18 Quetiapine Fumarate* (Seroquel* XR) 150 Mg Tab.sr.24h, 150 MG PO TID, #30 TAB 11/14/18 Sennosides* (Senna Lax*) 8.6 Mg Tablet, 2 TAB PO QHS, TAB 11/14/18 Ropinirole Hcl* (Ropinirole Hcl*) 1 Mg Tablet, 1 MG PO BID for RLS, TAB 11/14/18 Ranitidine Hcl* (Ranitidine Hcl*) 150 Mg Tablet, 150 MG PO Q12, #60 TAB 11/14/18 Potassium Chloride* (Potassium Chloride*) 20 Meq/15 Ml Liquid, 20 MEQ PO DAILY, ML 11/14/18 Polyethylene Glycol* (Polyethylene Glycol*) 17 Gm Powd.pack, 17 GM PO DAILY, #30 PACKET 11/14/18 Clopidogrel Bisulfate (Clopidogrel) 75 Mg Tablet, 75 MG PO DAILY, #30 TAB 11/14/18 Nystatin (Nystatin) 100,000 Unit/1 Ml Oral.susp, 5 ML PO Q6, #60 ML 11/14/18 Multivitamins W-Minerals (Support) 237 Ml Liquid, 30 ML PO DAILY for SUPPLEMENT 11/14/18 Magnesium Hydroxide* (Milk Of Magnesia*) 400 Mg/5 Ml Oral.susp, 30 ML PO Q12H for CONSTIPATION, ML 11/14/18 Lorazepam* (Lorazepam*) 0.5 Mg Tablet, 0.5 MG PO Q6 PRN for ANXIETY, TAB 11/14/18 Loratadine* (Loratadine*) 10 Mg Tablet, 10 MG PO DAILY for ALLERGY, #30 TAB 11/14/18 Levothyroxine Sodium* (Levothyroxine Sodium*) 50 Mcg Tablet, 50 MCG PO BEFORE BREAKFAST, #30 TAB 11/14/18 Ipratropium-Albuterol (Ipratropium-Albuterol) 0.5-3 Mg/3 Ml Ampul.neb, 3 ML INHALATION Q6, #30 VIAL 11/14/18 Hydrocodone/Acetaminophen (Iola 10-325 Tablet) 1 Each Tablet, 2 EACH PO Q4, TAB GIVE 2 TABLET BY MOUTH EVERY 4HOURS NEEDED FOR SEVERE PAIN 6-10 11/14/18 Hydrocodone/Acetaminophen ([place]ola 10-325 Tablet) 1 Each Tablet, 1 EACH PO Q4H, TAB 11/14/18 Guaifenesin* (Tussin*) 100 Mg/5 Ml Syrup, 10 ML PO Q4 PRN for COUGH, ML 11/14/18 Furosemide* (Furosemide*) 20 Mg Tablet, 20 MG PO DAILY, #60 TAB GIVE 20MG BY MOUTH ONE TIME A DAY EVERY OTHER DAYRELATED TO HEART FAILURE 11/14/18 Folic Acid* (Folic Acid*) 1 Mg Tablet, 1 MG PO DAILY for SUPPLEMENT, TAB 11/14/18 Na Phos,M-B/Na Phos,Di-Ba (Fleet Enema Extra) 230 Ml Enema, 230 ML RC 72H PRN for CONSTIPATION, ENEMA 11/14/18 Escitalopram Oxalate* (Escitalopram Oxalate*) 10 Mg Tablet, 10 MG PO DAILY for DEPRESSION, #30 TAB 11/14/18 Donepezil* (Donepezil*) 10 Mg Tablet, 10 MG PO QHS for DEMENTIA, #30 TAB 11/14/18 Docusate Sodium* (Docusate Sodium* Liq) 50 Mg/5 Ml Liquid, 100 MG GTB Q12H for CONSTIPATION, ML 11/14/18 Carvedilol* (Coreg*) 3.125 Mg Tablet, 6.25 MG PO BID for HTN, #60 TAB 11/14/18 Clonazepam* (Clonazepam*) 0.5 Mg Tablet, 0.5 MG PO BID, TAB 11/14/18 Bisacodyl* (Bisacodyl*) 10 Mg Supp, [address] DAILY, SUPP 11/14/18 Diphenhydramine Hcl* (Benadryl*) 50 Mg Cap, 50 MG PO Q6 PRN for ITCHING, CAP 11/14/18 Aspirin* (Aspirin* Chew) 81 Mg Tab.chew, 81 MG PO DAILY, TAB.CHEW 11/14/18 Ascorbic Acid* (Vitamin C*) 500 Mg Capsule.sa, 500 MG PO DAILY, CAP 11/14/18 Albuterol Sulfate* (Albuterol Sulfate* Neb) 0.083%-3 Ml Neb, 1.25 MG NEB Q6H PRN for BRONCHOSPASM/WHEEZING, #30 VIAL 11/14/18 Acetaminophen* (Acetaminophen*) 325 Mg Tablet, 650 MG PO Q4H PRN for PAIN AND OR ELEVATED TEMP, #30 TAB 11/14/18 Medications Current Medications IV Flush (NS 3 ml) 3 ml PER PROTOCOL IV ; Start 11/14/18 at 00:00 Ondansetron HCl (Zofran Inj) 4 mg Q6H PRN IV NAUSEA/VOMITING; Start 11/14/18 at 00:00 Acetaminophen (Tylenol Tab) 650 mg Q6H PRN PO .PAIN 1-3 OR TEMP; Start 11/14/18 at 00:00 Morphine Sulfate (morphine) 2 mg Q4H PRN IV .PAIN 7-10 Last administered on 11/16/18at 00:18; Admin Dose 2 MG; Start 11/14/18 at 00:00 Famotidine (Pepcid Iv) 20 mg DAILY IV Last administered on 11/18/18at 08:20; Admin Dose 20 MG; Start 11/14/18 at 09:00 Enoxaparin Sodium (Lovenox) 30 mg DAILY SC Last administered on 11/16/18at 08:55; Admin Dose 30 MG; Start 11/14/18 at 09:00; Status Hold Ceftriaxone Sodium 50 ml @ 100 mls/hr Q24H IVPB Last administered on 11/17/18at 13:28; Admin Dose 100 MLS/HR; Start 11/14/18 at 13:30 Acetaminophen (Tylenol Supp) [address] ELEVATED TEMPERATURE Last administered on 11/14/18at 23:33; Admin Dose 650 MG; Start 11/14/18 at 21:30 Clonidine (Catapres) 0.1 mg Q6H PRN PO PRN SBP > 160; Start 11/15/18 at 00:00 Hydralazine HCl (Apresoline) 25 mg Q6 PRN PO PRN SBP > 160; Start 11/15/18 at 00:00 Sodium Phosphate (Neutra-Phos) 250 mg BID GTB Last administered on 11/18/18at 08:20; Admin Dose 250 MG; Start 11/16/18 at 09:00 Vancomycin HCl (Vanco Iv Per Pharmacy) VANCOMYCIN PER PHARMACY PER PROTOCOL XX ; Start 11/17/18 at 02:30 Vancomycin HCl 1.25 gm/Dextrose 250 ml @ 83.333 mls/ hr Q24H IVPB Last administered on 11/18/18at 04:39; Admin Dose 83.333 MLS/HR; Start 11/18/18 at 04:00 Potassium Chloride/Dextrose/ Sod Cl 1,000 ml @ 50 mls/hr Q20H IV Last administered on 11/18/18at 08:07; Admin Dose 50 MLS/HR; Start 11/17/18 at 08:00 Ascorbic Acid (Vitamin C) 500 mg DAILY NGT Last administered on 11/18/18at 08:20; Admin Dose 500 MG; Start 11/18/18 at 09:00 Zinc Sulfate (Zinc Sulfate) 220 mg DAILY NGT Last administered on 11/18/18at 08:21; Admin Dose 220 MG; Start 11/18/18 at 09:00 Allergies: Coded Allergies: Penicillins (Unverified Allergy, Unknown, 11/14/18) amitriptyline (Unverified Allergy, Unknown, 11/14/18) diazepam (Unverified Allergy, Unknown, 11/14/18) zolpidem (Unverified Allergy, Unknown, 11/14/18) Past Surgical History Past Surgical Hx: other (Status post tracheostomy and subsequent decannulation, status post G-tube placement and subsequent removal) Family History Significant Family History: no pertinent family hx Social History Alcohol Use: none Smoking Status: Unknown if ever smoked Drug Use: none Exam/Review of Systems Exam Vitals Vital Signs Date Temp Pulse Resp B/P (MAP) Pulse Ox O2 O2 Flow FiO2 Time Delivery Rate 11/18/18 98.9 85 16 123/62 97 07:32 (82) 11/17/18 2.0 18:48 11/17/18 Room Air 15:46 11/15/18 45 02:20 Intake and Output 11/17/18 11/17/18 11/18/18 1515:00 23:00 07:00 IntakeIntake Total 440 ml 1600 ml OutputOutput Total 800 ml 700 ml 600 ml BalanceBalance -360 ml -700 ml 1000 ml Constitutional: other (confusion) Psych: no complaints, confusion Head: normocephalic Eyes: nl conjunctiva ENMT: nl external ears & nose Neck: supple Respiratory: clear to auscultation Cardiovascular: regular rate and rhythm Gastrointestinal: soft Musculoskeletal: nl extremities to inspection Results Result Diagram: 11/17/18 0339 11/18/18 0448 Results 24hrs Laboratory Tests Test 11/18/18 04:48 Sodium Level 144 Potassium Level 3.6 Chloride Level 116 H Carbon Dioxide Level 25 Anion Gap 3 L Blood Urea Nitrogen 9 Creatinine 0.63 Est Glomerular Filtrat Rate mL/min Glucose Level 141 Calcium Level 8.9 Phosphorus Level 2.1 L Magnesium Level 1.9 Medications Medication Current Medications IV Flush (NS 3 ml) 3 ml PER PROTOCOL IV ; Start 11/14/18 at 00:00 Ondansetron HCl (Zofran Inj) 4 mg Q6H PRN IV NAUSEA/VOMITING; Start 11/14/18 at 00:00 Acetaminophen (Tylenol Tab) 650 mg Q6H PRN PO .PAIN 1-3 OR TEMP; Start 11/14/18 at 00:00 Morphine Sulfate (morphine) 2 mg Q4H PRN IV .PAIN 7-10 Last administered on 11/16/18at 00:18; Admin Dose 2 MG; Start 11/14/18 at 00:00 Famotidine (Pepcid Iv) 20 mg DAILY IV Last administered on 11/18/18at 08:20; Admin Dose 20 MG; Start 11/14/18 at 09:00 Enoxaparin Sodium (Lovenox) 30 mg DAILY SC Last administered on 11/16/18at 08:55; Admin Dose 30 MG; Start 11/14/18 at 09:00; Status Hold Ceftriaxone Sodium 50 ml @ 100 mls/hr Q24H IVPB Last administered on 11/17/18at 13:28; Admin Dose 100 MLS/HR; Start 11/14/18 at 13:30 Acetaminophen (Tylenol Supp) [address] ELEVATED TEMPERATURE Last administered on 11/14/18at 23:33; Admin Dose 650 MG; Start 11/14/18 at 21:30 Clonidine (Catapres) 0.1 mg Q6H PRN PO PRN SBP > 160; Start 11/15/18 at 00:00 Hydralazine HCl (Apresoline) 25 mg Q6 PRN PO PRN SBP > 160; Start 11/15/18 at 00:00 Sodium Phosphate (Neutra-Phos) 250 mg BID GTB Last administered on 11/18/18at 08:20; Admin Dose 250 MG; Start 11/16/18 at 09:00 Vancomycin HCl (Vanco Iv Per Pharmacy) VANCOMYCIN PER PHARMACY PER PROTOCOL XX ; Start 11/17/18 at 02:30 Vancomycin HCl 1.25 gm/Dextrose 250 ml @ 83.333 mls/ hr Q24H IVPB Last administered on 11/18/18at 04:39; Admin Dose 83.333 MLS/HR; Start 11/18/18 at 04:00 Potassium Chloride/Dextrose/ Sod Cl 1,000 ml @ 50 mls/hr Q20H IV Last administered on 11/18/18at 08:07; Admin Dose 50 MLS/HR; Start 11/17/18 at 08:00 Ascorbic Acid (Vitamin C) 500 mg DAILY NGT Last administered on 11/18/18at 08:20; Admin Dose 500 MG; Start 11/18/18 at 09:00 Zinc Sulfate (Zinc Sulfate) 220 mg DAILY NGT Last administered on 11/18/18at 0 8:21; Admin Dose 220 MG; Start 11/18/18 at 09:00 ALYSIA JIM M.D. Nov 18, 2018 12:39
[2018-11-18] MEDS: CEFTRIAXONE 1 GM/50 ML (PMX) 50 ML IVPB SCH (13:12)
--- NOTE | 2018-11-18 13:40 | PN ---
DATE: 11/17/2018 SUBJECTIVE: Follow up on UTI, gram-positive cocci bacteremia, probably contaminant, history of hyper tension, hypothyroidism, dysphagia, metabolic encephalopathy. The patient is breathing comfortably o n 2 liters nasal cannula. No reported fever or chills. No reported bleeding site. The patient baron ins awake and responsive, no reported vomiting. No reported chest congestion. PHYSICAL EXAMINATION: GENERAL: The patient is awake and alert. VITAL SIGNS: Temperature 98, pulse 88, respirations 15, blood pressure 110/57, O2 saturation 100% on 2 liters nasal cannula. HEENT: No eye discharge or redness. NG tube in place. Conjunctivae and lids are normal. Oropharyn x is grossly negative. The patient is edentulous. NECK: Supple, no mass, no thyromegaly. CHEST: Diminished air entry at bases. CARDIOVASCULAR: S1, S2 normal. Currently the patient in sinus rhythm. ABDOMEN: Soft, nontender, no palpable mass. No pulsatile mass. EXTREMITIES: No edema. Pedal pulses palpable. SKIN: Without acute rash. NEUROLOGIC: The patient is awake, alert, has generalized weakness, but responsive to verbal stimuli. LABORATORY DATA: 11/17/2018: WBC 7.4, hemoglobin 9.5, platelet 70. Sodium 145, potassium 2.8, BUN 17, creatinine 0.7, glucose 127, phosphorus 1.9, magnesium 1.7. IMPRESSION: 1. Sepsis due to urinary tract infection. The patient continues to clinically get better with IV Ce ftriaxone. 2. Gram-positive cocci probably contaminant versus true infection. Continue IV vancomycin as per ID . 3. Hypokalemia. The patient will be given 2 doses of potassium through NG tube and will do followup potassium tomorrow. 4. Hypophosphatemia. The patient is on sodium phosphate. 5. Dementia. No agitation. Continue to monitor. 6. Dysphagia. Was seen by speech therapist and recommended NG tube feeding. 7. 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 The patient has improved significantly and w as decannulated several weeks ago and her respiratory status is stable. The patient will be transferred to medical floor today. We will continue to follow. Dictated By: WALDO GRADY/MARC Conf#: [id number] [facility]#: [id number] CC: CARLOS A LLANES MD;*EndCC*
[2018-11-18 14:34] VITALS: BP 123/66; PULSE 93; RESP 16
--- NOTE | 2018-11-18 17:30 | PN ---
Date/Time of Note Date/Time of Note DATE: 11/18/18 TIME: 17:28 Assessment/Plan VTE [place]axis [place] [facility] risk: 8 [place]CD applied [place] [facility] Yes Pharmacological prophylaxis: NA/contraindicated Pharm contraindication: thrombocytopenia Lines/Catheters IV C[facility]ter Type (from [facility] Peripheral IV Central line still needed: Yes Urinary Cath still in place: Yes Reason Cath still needed: urinary retention Assessment/Plan Hospital Course Patient is awake, alert to name only, otherwise confused. Assessment/Plan -Sepsis secondary to urinary tract infection, continue antibiotics. Dr. Griffiths is asked to see patient in infection disease consultation. -Gram-positive cocci bacteremia -Proteus M UTI -Acute metabolic encephalopathy. No evidence of acute intracranial hemorrhage, infarcts, or acute intracranial pathology per CT brain. -Hypernatremia, resolved. Dr. Edwards is following in nephrology consultation. -Acute kidney injury -Cardiomegaly and pulmonary vascular congestion per chest x-ray -Thrombocytopenia, Dr. Epperson is asked to see patient in hematology consultation. -Dysphagia, continue NG tube feeding, aspiration precaution. -Multiple stage I pressure ulcers, air mattress, off loading, optimize nutrition. Further recommendations based on clinical course. Plan of care discussed with Dr. Jin Result Diagram: 11/18/18 1359 11/18/18 0448 Results 24hrs Laboratory Tests Test 11/18/18 04:44 11/18/18 04:48 11/18/18 13:59 Hepatitis B Surface Antigen NEGATIVE Hepatitis B Core Total Antibody NEGATIVE Hepatitis C Antibody NEGATIVE HIV (1&2) Antibody NEGATIVE Sodium Level 144 Potassium Level 3.6 Chloride Level 116 H Carbon Dioxide Level 25 Anion Gap 3 L Blood Urea Nitrogen 9 Creatinine 0.63 Est Glomerular Filtrat Rate mL/min Glucose Level 141 Calcium Level 8.9 Phosphorus Level 2.1 L Magnesium Level 1.9 Platelet Count 80 L Prothrombin Time 14.4 Prothrombin Time Ratio 1.1 INR International 1.11 Normalized Ratio Activated Partial Thromboplast 36.7 H Time Thrombin Time 16.3 Fibrinogen 468.0 H Plasma Fibrin >10 and <40 H Degradation Products D-Dimer 1375.14 H D-Dimer Comment Lactate Dehydrogenase 446 Exam/Review of Systems Exam Vitals Vital Signs Date Temp Pulse Resp B/P (MAP) Pulse Ox O2 O2 Flow FiO2 Time Delivery Rate 11/18/18 98.8 93 16 123/66 97 14:34 (85) 11/17/18 2.0 18:48 11/17/18 Room Air 15:46 11/15/18 45 02:20 Intake and Output 11/17/18 11/17/18 11/18/18 1515:00 23:00 07:00 IntakeIntake Total 440 ml 1600 ml OutputOutput Total 800 ml 700 ml 600 ml BalanceBalance -360 ml -700 ml 1000 ml Constitutional: alert, frail Head: normocephalic Neck: supple Respiratory: diminished breath sounds Cardiovascular: nl pulses Gastrointestinal: soft, non-tender Extremities: normal pulses Neurological: confused Results Results 24hrs Laboratory Tests Test 11/18/18 04:44 11/18/18 04:48 11/18/18 13:59 Hepatitis B Surface Antigen NEGATIVE Hepatitis B Core Total Antibody NEGATIVE Hepatitis C Antibody NEGATIVE HIV (1&2) Antibody NEGATIVE Sodium Level 144 Potassium Level 3.6 Chloride Level 116 H Carbon Dioxide Level 25 Anion Gap 3 L Blood Urea Nitrogen 9 Creatinine 0.63 Est Glomerular Filtrat Rate mL/min Glucose Level 141 Calcium Level 8.9 Phosphorus Level 2.1 L Magnesium Level 1.9 Platelet Count 80 L Prothrombin Time 14.4 Prothrombin Time Ratio 1.1 INR International 1.11 Normalized Ratio Activated Partial Thromboplast 36.7 H Time Thrombin Time 16.3 Fibrinogen 468.0 H Plasma Fibrin >10 and <40 H Degradation Products D-Dimer 1375.14 H D-Dimer Comment Lactate Dehydrogenase 446 Medications Medication Current Medications IV Flush (NS 3 ml) 3 ml PER PROTOCOL IV ; Start 11/14/18 at 00:00 Ondansetron HCl (Zofran Inj) 4 mg Q6H PRN IV NAUSEA/VOMITING; Start 11/14/18 at 00:00 Acetaminophen (Tylenol Tab) 650 mg Q6H PRN PO .PAIN 1-3 OR TEMP; Start 11/14/18 at 00:00 Morphine Sulfate (morphine) 2 mg Q4H PRN IV .PAIN 7-10 Last administered on 11/16/18at 00:18; Admin Dose 2 MG; Start 11/14/18 at 00:00 Enoxaparin Sodium (Lovenox) 30 mg DAILY SC Last administered on 11/16/18at 08:55; Admin Dose 30 MG; Start 11/14/18 at 09:00; Status Hold Ceftriaxone Sodium 50 ml @ 100 mls/hr Q24H IVPB Last administered on 11/18/18 13:12; Admin Dose 100 MLS/HR; Start 11/14/18 at 13:30 Acetaminophen (Tylenol Supp) 650 mg Q6H PRN [place] ELEVATED TEMPERATURE Last administered on 11/14/18at 23:33; Admin Dose 650 MG; Start 11/14/18 at 21:30 Clonidine (Catapres) 0.1 mg Q6H PRN PO PRN SBP > 160; Start 11/15/18 at 00:00 Hydralazine HCl (Apresoline) 25 mg Q6 PRN PO PRN SBP > 160; Start 11/15/18 at 00:00 Sodium Phosphate (Neutra-Phos) 250 mg BID GTB Last administered on 11/18/18 08:20; Admin Dose 250 MG; Start 11/16/18 at 09:00 Vancomycin HCl (Vanco Iv Per Pharmacy) VANCOMYCIN PER PHARMACY PER PROTOCOL XX ; Start 11/17/18 at 02:30 Vancomycin HCl 1.25 gm/Dextrose 250 ml @ 83.333 mls/ hr Q24H IVPB Last administered on 11/18/18 04:39; Admin Dose 83.333 MLS/HR; Start 11/18/18 at 04:00 Potassium Chloride/Dextrose/ Sod Cl 1,000 ml @ 50 mls/hr Q20H IV Last administered on 11/18/18 08:07; Admin Dose 50 MLS/HR; Start 11/17/18 at 08:00 Ascorbic Acid (Vitamin C) 500 mg DAILY NGT Last administered on 11/18/18 08:20; Admin Dose 500 MG; Start 11/18/18 at 09:00 Zinc Sulfate (Zinc Sulfate) 220 mg DAILY NGT Last administered on 11/18/18 08:21; Admin Dose 220 MG; Start 11/18/18 at 09:00 Famotidine (Pepcid) 20 mg DAILY PO ; Start 11/19/18 at 09:00 SHANE DOWNEY Nov 18, 2018 17:30
[2018-11-18 20:58] VITALS: BP 124/78; PULSE 92; RESP 17
[2018-11-18] MEDS: morphine 2 MG INJ IV PRN (22:05)
[2018-11-19] VITALS (12 sets, daily range): BP systolic 116–162; BP diastolic 58–85; PULSE 80–106; RESP 15–19
[2018-11-19] MEDS: D5W-0.45 NACL + KCL 40 MEQ 1,000 ML IV SCH (04:33)
[2018-11-19] MEDS: VANCOMYCIN HCL 1.25 GM in DEXTROSE 5% 250 ML IVPB SCH (04:34)
[2018-11-19] MEDS: morphine 2 MG INJ IV PRN (06:22)
[2018-11-19] MEDS ORDERED: MAGNESIUM SULFATE 2 GM/50 ML 50 ML IVPB ONE ×2 (10:00→11:00)
[2018-11-19] MEDS: ASCORBIC ACID 500 MG TAB NGT SCH (10:58)
[2018-11-19] MEDS: NEUTRA-PHOS 250 MG PACKET GTB SCH ×2 (10:59→21:31)
[2018-11-19] MEDS: FAMOTIDINE 20 MG TAB PO SCH (10:59)
[2018-11-19] MEDS: ZINC SULFATE 220 MG CAP NGT SCH (10:59)
--- NOTE | 2018-11-19 11:35 | CONS ---
Assessment/Plan Assessment/Plan Hospital Course (Demo Recall) #Thrombocytopenia -platelets are improving and are now > 90K -this may sepsis related or 2/2 to her antibiotics. - DIC unlikely given the normal fibrinogen -TTP unlikely given normal LDH -would not transfuse platelets at this time unless platelet count is < 20K - abdominal ultrasound demonstrates fatty liver -HIV hepatitis are negative #Urosepsis -continue antibiotics #ARF -management per nephrology. CR now normal #hypernatremia -improved -Na 144 Thank you for the opportunity to participate in this patients care A total of 40 minutes of face to face time was spent speaking with the patient, of which greater than 50% was spent in counseling and coordination of care and the detailed question and answer session. Consultation Date/Type/Reason Admit Date/Time Nov 13, 2018 at 23:15 Initial Consult Date 11/18/18 Type of Consult Hematology Reason for Consultation thrombocytopenia Requesting Provider: WALDO CLEARY MD Date/Time of Note DATE: 11/19/18 TIME: 11:32 24 HR Interval Summary Free Text/Dictation continues on antibiotics Exam/Review of Systems Exam Vitals Vital Signs Date Temp Pulse Resp B/P (MAP) Pulse Ox O2 O2 Flow FiO2 Time Delivery Rate 11/19/18 98.4 94 15 147/81 97 Room Air 10:05 (103) 11/17/18 2.0 18:48 Intake and Output 11/18/18 11/18/18 11/19/18 1515:00 23:00 07:00 IntakeIntake Total 700 ml 600 ml 650 ml OutputOutput Total 650 ml BalanceBalance 700 ml -50 ml 650 ml Psych: no complaints, confusion, depression Head: normocephalic Eyes: nl conjunctiva ENMT: nl external ears & nose Neck: supple Respiratory: clear to auscultation Cardiovascular: regular rate and rhythm Gastrointestinal: soft Musculoskeletal: nl extremities to inspection Extremities: normal pulses Results Result Diagram: 11/19/18 0459 11/19/18 0459 Results 24hrs Laboratory Tests Test 11/18/18 13:59 11/19/18 04:59 Platelet Count 80 L 98 #L Prothrombin Time 14.4 Prothrombin Time Ratio 1.1 INR International Normalized Ratio 1.11 Activated Partial Thromboplast Time 36.7 H Thrombin Time 16.3 Fibrinogen 468.0 H Plasma Fibrin Degradation Products >10 and <40 H D-Dimer 1375.14 H D-Dimer Comment Lactate Dehydrogenase 446 White Blood Count 7.4 Red Blood Count 3.59 L Hemoglobin 11.8 L Hematocrit 36.3 L Mean Corpuscular Volume 101.1 H Mean Corpuscular Hemoglobin 32.9 Mean Corpuscular Hemoglobin Concent 32.5 Red Cell Distribution Width 12.5 Mean Platelet Volume 14.5 H Immature Granulocytes % 0.500 H Neutrophils % 61.3 Lymphocytes % 25.7 Monocytes % 7.2 Eosinophils % 5.0 Basophils % 0.3 Nucleated Red Blood Cells % 0.0 Immature Granulocytes # 0.040 H Neutrophils # 4.5 Lymphocytes # 1.9 Monocytes # 0.5 Eosinophils # 0.4 Basophils # 0.0 Nucleated Red Blood Cells # 0.0 Sodium Level 139 Potassium Level 3.8 Chloride Level 110 Carbon Dioxide Level 30 Anion Gap -1 L Blood Urea Nitrogen 7 Creatinine 0.68 Est Glomerular Filtrat Rate mL/min Glucose Level 101 # Calcium Level 8.9 Phosphorus Level 2.4 L Magnesium Level 1.6 L Medications Medication Current Medications IV Flush (NS 3 ml) 3 ml PER PROTOCOL IV ; Start 11/14/18 at 00:00 Ondansetron HCl (Zofran Inj) 4 mg Q6H PRN IV NAUSEA/VOMITING; Start 11/14/18 at 00:00 Acetaminophen (Tylenol Tab) 650 mg Q6H PRN PO .PAIN 1-3 OR TEMP; Start 11/14/18 at 00:00 Morphine Sulfate (morphine) 2 mg Q4H PRN IV .PAIN 7-10 Last administered on 11/19/18at 06:22; Admin Dose 2 MG; Start 11/14/18 at 00:00 Enoxaparin Sodium (Lovenox) 30 mg DAILY SC Last administered on 11/16/18at 08:55; Admin Dose 30 MG; Start 11/14/18 at 09:00; Status Hold Ceftriaxone Sodium 50 ml @ 100 mls/hr Q24H IVPB Last administered on 11/18/18at 13:12; Admin Dose 100 MLS/HR; Start 11/14/18 at 13:30 Acetaminophen (Tylenol Supp) 650 mg Q6H PRN [place] ELEVATED TEMPERATURE Last administered on 11/14/18at 23:33; Admin Dose 650 MG; Start 11/14/18 at 21:30 Clonidine (Catapres) 0.1 mg Q6H PRN PO PRN SBP > 160; Start 11/15/18 at 00:00 Hydralazine HCl (Apresoline) 25 mg Q6 PRN PO PRN SBP > 160; Start 11/15/18 at 00:00 Sodium Phosphate (Neutra-Phos) 250 mg BID GTB Last administered on 11/19/18at 10:59; Admin Dose 250 MG; Start 11/16/18 at 09:00 Ascorbic Acid (Vitamin C) 500 mg DAILY NGT Last administered on 11/19/18 10:58; Admin Dose 500 MG; Start 11/18/18 at 09:00 Zinc Sulfate (Zinc Sulfate) 220 mg DAILY NGT Last administered on 11/19/18 10:59; Admin Dose 220 MG; Start 11/18/18 at 09:00 Famotidine (Pepcid) 20 mg DAILY PO Last administered on 11/19/18at 10:59; Admin Dose 20 MG; Start 11/19/18 at 09:00 Magnesium Sulfate 50 ml @ 25 mls/hr ONCE ONCE IVPB Last administered on 11/19/18 10:59; Admin Dose 25 MLS/HR; Start 11/19/18 at 10:00; Stop 11/19/18 at 11:59 Multivitamins (Multivitamin) 30 ml DAILY NGT ; Start 11/19/18 at 11:00 ALYSIA JIM M.D. Nov 19, 2018 11:35
[2018-11-19] MEDS: MULTIVITAMINS 30 ML CUP NGT SCH (13:18)
[2018-11-19] MEDS: CEFTRIAXONE 1 GM/50 ML (PMX) 50 ML IVPB SCH (13:19)
--- NOTE | 2018-11-19 13:25 | PN ---
Date/Time of Note Date/Time of Note DATE: 11/19/18 TIME: 13:17 Assessment/Plan VTE [place] [facility] [place]: 6 [place] [facility] [place] Yes Pharmacological prophylaxis: NA/contraindicated Pharm contraindication: thrombocytopenia Lines/Catheters IV Catheter Type (from [facility]): Peripheral IV Urinary Cath still in place: Yes Reason Cath still needed: urinary retention Assessment/Plan Hospital Course Patient is alert to name otherwise confused, continue NG tube feeding, monitor electrolytes, magnesium was replaced in the morning. Start pured diet with nectar thick liquids via spoon per speech therapy with recommendation. Assessment/Plan -Sepsis secondary to urinary tract infection, continue antibiotics. Dr. Griffiths is asked to see patient in infection disease consultation. -Gram-positive cocci bacteremia -Proteus M UTI, continue Rocephin. -Acute metabolic encephalopathy. No evidence of acute intracranial hemorrhage, infarcts, or acute intracranial pathology per CT brain. -Hypernatremia, resolved. Dr. Edwards is following in nephrology consultation. -Acute kidney injury -Cardiomegaly and pulmonary vascular congestion per chest x-ray -Thrombocytopenia, Dr. Epperson is following in hematology consultation. -Dysphagia, continue NG tube feeding, aspiration precaution. -Multiple stage I pressure ulcers, air mattress, off loading, optimize nutrition. Further recommendations based on clinical course. Plan of care discussed with Dr. Jin Result Diagram: 11/19/18 0459 11/19/18 0459 Results 24hrs Laboratory Tests Test 11/18/18 13:59 11/19/18 04:59 Platelet Count 80 L 98 #L Prothrombin Time 14.4 Prothrombin Time Ratio 1.1 INR International Normalized Ratio 1.11 Activated Partial Thromboplast Time 36.7 H Thrombin Time 16.3 Fibrinogen 468.0 H Plasma Fibrin Degradation Products >10 and <40 H D-Dimer 1375.14 H D-Dimer Comment Lactate Dehydrogenase 446 White Blood Count 7.4 Red Blood Count 3.59 L Hemoglobin 11.8 L Hematocrit 36.3 L Mean Corpuscular Volume 101.1 H Mean Corpuscular Hemoglobin 32.9 Mean Corpuscular Hemoglobin Concent 32.5 Red Cell Distribution Width 12.5 Mean Platelet Volume 14.5 H Immature Granulocytes % 0.500 H Neutrophils % 61.3 Lymphocytes % 25.7 Monocytes % 7.2 Eosinophils % 5.0 Basophils % 0.3 Nucleated Red Blood Cells % 0.0 Immature Granulocytes # 0.040 H Neutrophils # 4.5 Lymphocytes # 1.9 Monocytes # 0.5 Eosinophils # 0.4 Basophils # 0.0 Nucleated Red Blood Cells # 0.0 Sodium Level 139 Potassium Level 3.8 Chloride Level 110 Carbon Dioxide Level 30 Anion Gap -1 L Blood Urea Nitrogen 7 Creatinine 0.68 Est Glomerular Filtrat Rate mL/min Glucose Level 101 # Calcium Level 8.9 Phosphorus Level 2.4 L Magnesium Level 1.6 L Exam/Review of Systems Exam Vitals Vital Signs Date Temp Pulse Resp B/P (MAP) Pulse Ox O2 O2 Flow FiO2 Time Delivery Rate 11/19/18 98.4 94 15 147/81 97 Room Air 10:05 (103) 11/17/18 2.0 18:48 Intake and Output 11/18/18 11/18/18 11/19/18 1515:00 23:00 07:00 IntakeIntake Total 700 ml 600 ml 650 ml OutputOutput Total 650 ml BalanceBalance 700 ml -50 ml 650 ml Exam Constitutional: alert, frail Respiratory: diminished breath sounds Cardiovascular: nl pulses Gastrointestinal: soft, non-tender Extremities: normal pulses Neurological: confused Results Results 24hrs Laboratory Tests Test 11/18/18 13:59 11/19/18 04:59 Platelet Count 80 L 98 #L Prothrombin Time 14.4 Prothrombin Time Ratio 1.1 INR International Normalized Ratio 1.11 Activated Partial Thromboplast Time 36.7 H Thrombin Time 16.3 Fibrinogen 468.0 H Plasma Fibrin Degradation Products >10 and <40 H D-Dimer 1375.14 H D-Dimer Comment Lactate Dehydrogenase 446 White Blood Count 7.4 Red Blood Count 3.59 L Hemoglobin 11.8 L Hematocrit 36.3 L Mean Corpuscular Volume 101.1 H Mean Corpuscular Hemoglobin 32.9 Mean Corpuscular Hemoglobin Concent 32.5 Red Cell Distribution Width 12.5 Mean Platelet Volume 14.5 H Immature Granulocytes % 0.500 H Neutrophils % 61.3 Lymphocytes % 25.7 Monocytes % 7.2 Eosinophils % 5.0 Basophils % 0.3 Nucleated Red Blood Cells % 0.0 Immature Granulocytes # 0.040 H Neutrophils # 4.5 Lymphocytes # 1.9 Monocytes # 0.5 Eosinophils # 0.4 Basophils # 0.0 Nucleated Red Blood Cells # 0.0 Sodium Level 139 Potassium Level 3.8 Chloride Level 110 Carbon Dioxide Level 30 Anion Gap -1 L Blood Urea Nitrogen 7 Creatinine 0.68 Est Glomerular Filtrat Rate mL/min Glucose Level 101 # Calcium Level 8.9 Phosphorus Level 2.4 L Magnesium Level 1.6 L Medications Medication Current Medications IV Flush (NS 3 ml) 3 ml PER PROTOCOL IV ; Start 11/14/18 at 00:00 Ondansetron HCl (Zofran Inj) 4 mg Q6H PRN IV NAUSEA/VOMITING; Start 11/14/18 at 00:00 Acetaminophen (Tylenol Tab) 650 mg Q6H PRN PO .PAIN 1-3 OR TEMP; Start 11/14/18 at 00:00 Morphine Sulfate (morphine) 2 mg Q4H PRN IV .PAIN 7-10 Last administered on 11/19/18at 06:22; Admin Dose 2 MG; Start 11/14/18 at 00:00 Enoxaparin Sodium (Lovenox) 30 mg DAILY SC Last administered on 11/16/18at 08:55; Admin Dose 30 MG; Start 11/14/18 at 09:00; Status Hold Ceftriaxone Sodium 50 ml @ 100 mls/hr Q24H IVPB Last administered on 11/18/18 13:12; Admin Dose 100 MLS/HR; Start 11/14/18 at 13:30 Acetaminophen (Tylenol Supp) 650 mg Q6H PRN OR ELEVATED TEMPERATURE Last administered on 11/14/18at 23:33; Admin Dose 650 MG; Start 11/14/18 at 21:30 Clonidine (Catapres) 0.1 mg Q6H PRN PO PRN SBP > 160; Start 11/15/18 at 00:00 Hydralazine HCl (Apresoline) 25 mg Q6 PRN PO PRN SBP > 160; Start 11/15/18 at 00:00 Sodium Phosphate (Neutra-Phos) 250 mg BID GTB Last administered on 11/19/18 10:59; Admin Dose 250 MG; Start 11/16/18 at 09:00 Ascorbic Acid (Vitamin C) 500 mg DAILY NGT Last administered on 11/19/18 10:58; Admin Dose 500 MG; Start 11/18/18 at 09:00 Zinc Sulfate (Zinc Sulfate) 220 mg DAILY NGT Last administered on 4/16/19at 10:59; Admin Dose 220 MG; Start 11/18/18 at 09:00 Famotidine (Pepcid) 20 mg DAILY PO Last administered on 11/19/18at 10:59; Admin Dose 20 MG; Start 11/19/18 at 09:00 Multivitamins (Multivitamin) 30 ml DAILY NGT ; Start 11/19/18 at 11:00 SHANE DOWNEY Nov 19, 2018 13:25
--- NOTE | 2018-11-19 13:37 | PN ---
DATE: 11/19/2018 SUBJECTIVE: The patient remains stable. No events overnight. No fevers, chills, nausea, vomiting. OBJECTIVE: VITAL SIGNS: Blood pressure is 124/60, respirations 16, pulse 91, temperature 98.6. HEENT: Head is normocephalic. NECK: Supple. HEART: Regular rate. LUNGS: Show diminished breath sounds at the base. ABDOMEN: Soft, nontender to palpation without rebound or guarding. EXTREMITIES: Negative for clubbing, cyanosis, no edema. DERMATOLOGIC: No rashes. MUSCULOSKELETAL: No joint effusion. NEUROLOGIC: No change in exam. MEDICATIONS: The patient's medications have been reviewed. LABORATORY DATA: Have been reviewed. IMAGING STUDIES: Have been reviewed. ASSESSMENT AND PLAN: 1. Nonoliguric acute kidney injury with previous baseline creatinine of 0.7 mg/dL. Etiology of acut e kidney injury secondary to hemodynamics. Renal function is improved. Continue current treatment p charleen, supportive care, renally dose meds. Will discontinue IV fluids. 2. Hypernatremia, improved. Continue free water flushes. 3. Hypokalemia. Continue to monitor and replete. 4. Hypomagnesemia. Will replete with magnesium sulfate. 5. Mineral bone disorder. The patient is hypophosphatemic. Continue to replete with potassium phos phate. 6. Acute encephalopathy. Etiology is toxic metabolic. 7. Sepsis secondary to urinary tract infection. Continue current treatment plan. 8. Acute respiratory failure secondary to sepsis, atelectasis, improved. Continue to monitor. 9. Dysphagia. Continue tube feeding via NG tube. Dictated By: GLENN NATH/NTS Conf#: [id number] DID#: [id number] CC: CARLOS A LLANES MD;*EndCC*
--- NOTE | 2018-11-19 13:55 | CONS ---
DATE OF ADMISSION: 11/13/2018 DATE OF CONSULTATION: 11/18/2018 REASON FOR CONSULTATION: Antibiotic management. HISTORY OF PRESENT ILLNESS: Meredith Horner is an 78-year-old female admitted on 11/13. [facility] with elevated BUN and creatinine. Her doctor is Dr. Storm montilla. She has a history of respiratory failure with history of tracheostomy that was removed, gastro stomy, hypertension, heart failure. She is nonverbal. She has a history as noted of tracheostomy, g astrostomy, chronic respiratory failure, hypertension, heart failure, behavioral disorder. ALLERGIES: SHE IS ALLERGIC TO: 1. PENICILLIN. 2. AMITRIPTYLINE. 3. DIAZEPAM. 4. ZOLPIDEM. NONE TO PENICILLIN, SULFA OR FOODS. FAMILY HISTORY: Noncontributory. SOCIAL HISTORY: She does not smoke, drink or abuse drugs. MEDICATIONS: Per chart. REVIEW OF SYSTEMS: Noncontributory. ADMISSION LABORATORY VALUES: On admission, her white count was 11.8, hemoglobin and hematocrit were 16.5/55.1, platelet count 119,000. BUN and creatinine 76/1.69. Her initial sodium was 175. On admi ssion, her white count 11.8 had 80% neutrophils. HOSPITAL COURSE: The patient was obviously dehydrated. She had cardiomegaly; mild pulmonary congest ion, left greater than right; sclerotic changes in the right humeral head with osseous fragmentation - remote trauma; sclerotic osseous metastatic deposits with fracture pathologic bone. Dr. Edwards was asked to see the patient in renal consultation. The patient had a UTI, started on Ro cephin. Her urine grew out Proteus mirabilis sensitive to Rocephin, resistant to Levaquin. She had 1 positive blood culture with gram-positive cocci and clusters on the . Repeats were all negativ e. Chest x-ray on the floor at the present shows low lung volumes. An NG tube is in place. Abdomin al ultrasound showed that the gallbladder was removed, status post cholecystectomy. She was seen in the intensive care unit by Dr. Jin for hypernatremia, acute kidney injury, encephalopathy. Her white count on the was 12.6. The followup on UTI with gram-positive cocci, probable contaminant . The patient is breathing comfortably on 2 liters of nasal cannula. She remains awake and responsi ve. On the , her white count was 7.4. BUN and creatinine 17/0.7. PHYSICAL EXAMINATION: GENERAL: She is in no acute distress. VITAL SIGNS: Stable. She is afebrile. SKIN: Without generalized rash. HEENT: Within normal limits. She is edentulous. NECK: Supple. LYMPH NODES: None palpable. CHEST: Decreased breath sounds at the bases. HEART: Without murmur or gallop. ABDOMEN: Soft, nontender without organosplenomegaly or masses. EXTREMITIES: Without cyanosis, clubbing, or edema. RECTAL EXAM: Deferred. GENITAL EXAM: Deferred. NEUROLOGICAL EVALUATION: No focal neurological abnormality. PLAN: She had sepsis due UTI with gram-positive cocci, probable contaminant. She is on IV vancomyci n. We will probably be able to discontinue the vancomycin, continue her on current therapy. I will dictate my findings to Dr. Jin, Dr. Edwards, Nurse Practitioner [place]. Dictated By: JOSE WAGGONER MD, JD/MARC Conf#: [id number] DID#: [id number] CC: CARLOS A LLANES MD;*EndCC*
--- NOTE | 2018-11-19 14:30 | CONS ---
Assessment/Plan Assessment/Plan Hospital Course (Demo Recall) Patient is laying comfortably in bed. She is non-communicative, in no distress, afebrile. WBC 7.4 platelets 98 neutrophils 61.3 BUN 7 creatinine 0.68 Microbiology: Urine culture on admission grew Proteus mirabilis, blood culture growing alphahemolytic strep species, repeat blood cultures negative. Chest x-ray revealed scattered atelectasis in both lungs Antimicrobials: Rocephin Allergy: Penicillin Indwelling: NG tube, Jacobs catheter, PEG Physical examination: Chronically ill-appearing elderly woman who looks comfortable. Head atraumatic normocephalic sclera nonicteric. Bugle mucosa dry. Neck is supple, chest rise symmetrical, breath sounds diminished bases. Heart: S1-S2. Abdomen soft bowel sounds present. Extremities without cyanosis. Assessment: 1. Sepsis, present on admission 2. Strep bacteremia likely secondary to pneumonia 3. Dysphasia 4. Acute on chronic encephalopathy 5. Multiple chronic wounds Plan: Patient is clinically stable, more awake per report, repeat blood cultures negative, we will will order 2D echo to rule out vegetations Consultation Date/Type/Reason Admit Date/Time Nov 13, 2018 at 23:15 Initial Consult Date 11/18/18 Type of Consult id Requesting Provider: WALDO CLEARY MD Date/Time of Note DATE: 11/19/18 TIME: 14:30 Exam/Review of Systems Exam Vitals Vital Signs Date Temp Pulse Resp B/P (MAP) Pulse Ox O2 O2 Flow FiO2 Time Delivery Rate 11/19/18 98.0 84 18 150/69 96 Room Air 12:00 (96) 11/17/18 2.0 18:48 Intake and Output 11/18/18 11/18/18 11/19/18 1515:00 23:00 07:00 IntakeIntake Total 700 ml 600 ml 650 ml OutputOutput Total 650 ml BalanceBalance 700 ml -50 ml 650 ml Results Result Diagram: 11/19/18 0459 11/19/18 0459 Results 24hrs Laboratory Tests Test 11/19/18 04:59 White Blood Count 7.4 Red Blood Count 3.59 L Hemoglobin 11.8 L Hematocrit 36.3 L Mean Corpuscular Volume 101.1 H Mean Corpuscular Hemoglobin 32.9 Mean Corpuscular Hemoglobin Concent 32.5 Red Cell Distribution Width 12.5 Platelet Count 98 #L Mean Platelet Volume 14.5 H Immature Granulocytes % 0.500 H Neutrophils % 61.3 Lymphocytes % 25.7 Monocytes % 7.2 Eosinophils % 5.0 Basophils % 0.3 Nucleated Red Blood Cells % 0.0 Immature Granulocytes # 0.040 H Neutrophils # 4.5 Lymphocytes # 1.9 Monocytes # 0.5 Eosinophils # 0.4 Basophils # 0.0 Nucleated Red Blood Cells # 0.0 Sodium Level 139 Potassium Level 3.8 Chloride Level 110 Carbon Dioxide Level 30 Anion Gap -1 L Blood Urea Nitrogen 7 Creatinine 0.68 Est Glomerular Filtrat Rate mL/min Glucose Level 101 # Calcium Level 8.9 Phosphorus Level 2.4 L Magnesium Level 1.6 L Medications Medication Current Medications IV Flush (NS 3 ml) 3 ml PER PROTOCOL IV ; Start 11/14/18 at 00:00 Ondansetron HCl (Zofran Inj) 4 mg Q6H PRN IV NAUSEA/VOMITING; Start 11/14/18 at 00:00 Acetaminophen (Tylenol Tab) 650 mg Q6H PRN PO .PAIN 1-3 OR TEMP; Start 11/14/18 at 00:00 Morphine Sulfate (morphine) 2 mg Q4H PRN IV .PAIN 7-10 Last administered on 11/19/18at 06:22; Admin Dose 2 MG; Start 11/14/18 at 00:00 Enoxaparin Sodium (Lovenox) 30 mg DAILY SC Last administered on 11/16/18at 08:55; Admin Dose 30 MG; Start 11/14/18 at 09:00; Status Hold Ceftriaxone Sodium 50 ml @ 100 mls/hr Q24H IVPB Last administered on 11/19/18at 13:19; Admin Dose 100 MLS/HR; Start 11/14/18 at 13:30 Acetaminophen (Tylenol Supp) 650 mg Q6H PRN [place] ELEVATED TEMPERATURE Last administered on 11/14/18at 23:33; Admin Dose 650 MG; Start 11/14/18 at 21:30 Clonidine (Catapres) 0.1 mg Q6H PRN PO PRN SBP > 160; Start 11/15/18 at 00:00 Hydralazine HCl (Apresoline) 25 mg Q6 PRN PO PRN SBP > 160; Start 11/15/18 at 00:00 Sodium Phosphate (Neutra-Phos) 250 mg BID GTB Last administered on 11/19/18 10:59; Admin Dose 250 MG; Start 11/16/18 at 09:00 Ascorbic Acid (Vitamin C) 500 mg DAILY NGT Last administered on 11/19/18 10:58; Admin Dose 500 MG; Start 11/18/18 at 09:00 Zinc Sulfate (Zinc Sulfate) 220 mg DAILY NGT Last administered on 11/19/18 10:59; Admin Dose 220 MG; Start 11/18/18 at 09:00 Famotidine (Pepcid) 20 mg DAILY PO Last administered on 11/19/18 10:59; Admin Dose 20 MG; Start 11/19/18 at 09:00 Multivitamins (Multivitamin) 30 ml DAILY NGT Last administered on 11/19/18 13:18; Admin Dose 30 ML; Start 11/19/18 at 11:00 SALMA HOOKER NP Nov 19, 2018 14:30
[2018-11-20] VITALS (13 sets, daily range): BP systolic 109–152; BP diastolic 58–89; PULSE 88–115; RESP 16–20
--- NOTE | 2018-11-20 08:57 | PN ---
DATE: 11/20/2018 SUBJECTIVE: The patient is stable, remains confused. No other events noted. OBJECTIVE: VITAL SIGNS: Blood pressure is 109/86, respirations 18, pulse 103, temperature 97.5. HEENT: Head is normocephalic. NECK: Supple. HEART: Regular rate. LUNGS: Show diminished breath sounds at the base. ABDOMEN: Soft, nontender to palpation without rebound or guarding. EXTREMITIES: Negative for clubbing, cyanosis, no edema. DERMATOLOGIC: No rashes. MUSCULOSKELETAL: No joint effusion. NEUROLOGIC: No change in exam. MEDICATIONS: Reviewed. LABORATORY DATA: Reviewed. ASSESSMENT AND PLAN: 1. Nonoliguric acute kidney injury with previous baseline creatinine of 0.7 mg/dL. Etiology of acut e kidney injury is secondary to hemodynamics. Renal function is improved. Continue current treatmen t plan, supportive care and renally dose all medicines. 2. Hypernatremia. Continue free water flushes. 3. Hypokalemia. Continue to monitor and replete as needed. 4. Hypomagnesemia. Continue to monitor and replete as needed. 5. Mineral bone disorder. Continue to monitor calcium and phosphorus levels. 6. Acute encephalopathy, etiology is toxic metabolic. 7. Sepsis secondary to the urinary tract infection. Continue current treatment plan. 8. Acute respiratory failure, severe sepsis, cellulitis, improved. 9. Dysphagia. Continue tube feeding. Continue to work with speech therapy. Dictated By: GLENN NATH/NTS Conf#: [id number] DID#: [id number] CC: CARLOS A LLANES MD;*EndCC*
[2018-11-20] MEDS: MULTIVITAMINS 30 ML CUP NGT SCH (09:04)
[2018-11-20] MEDS: ASCORBIC ACID 500 MG TAB NGT SCH (09:05)
[2018-11-20] MEDS: NEUTRA-PHOS 250 MG PACKET GTB SCH ×2 (09:05→20:30)
[2018-11-20] MEDS: FAMOTIDINE 20 MG TAB PO SCH (09:05)
[2018-11-20] MEDS: ZINC SULFATE 220 MG CAP NGT SCH (09:05)
--- NOTE | 2018-11-20 10:40 | CONS ---
Assessment/Plan Assessment/Plan Hospital Course (Demo Recall) #Thrombocytopenia -platelets are improving and are now > 100K -this may sepsis related or 2/2 to her antibiotics. - DIC unlikely given the normal fibrinogen -TTP unlikely given normal LDH -would not transfuse platelets at this time unless platelet count is < 20K - abdominal ultrasound demonstrates fatty liver -HIV hepatitis are negative #Urosepsis -continue antibiotics #ARF -management per nephrology. CR now normal #hypernatremia -improved -Na 144 Thank you for the opportunity to participate in this patients care A total of 40 minutes of face to face time was spent speaking with the patient, of which greater than 50% was spent in counseling and coordination of care and the detailed question and answer session. Consultation Date/Type/Reason Admit Date/Time Nov 13, 2018 at 23:15 Initial Consult Date 11/18/18 Type of Consult Hematology Reason for Consultation thrombocytopenia Requesting Provider: WALDO CLEARY MD Date/Time of Note DATE: 11/20/18 TIME: 09:09 24 HR Interval Summary Free Text/Dictation platelets are improving. remains confused Exam/Review of Systems Exam Vitals Vital Signs Date Temp Pulse Resp B/P (MAP) Pulse Ox O2 O2 Flow FiO2 Time Delivery Rate 11/20/18 97.5 103 18 109/87 96 07:42 (94) 11/20/18 Room Air 06:00 11/17/18 2.0 18:48 Intake and Output 11/19/18 11/19/18 11/20/18 1515:00 23:00 07:00 IntakeIntake Total 1400 ml 1320 ml OutputOutput Total 800 ml 550 ml BalanceBalance -800 ml 850 ml 1320 ml Constitutional: non-verbal Psych: confusion Head: normocephalic Eyes: nl conjunctiva ENMT: nl external ears & nose Neck: supple Respiratory: clear to auscultation Cardiovascular: regular rate and rhythm Gastrointestinal: soft Musculoskeletal: nl extremities to inspection Results Result Diagram: 11/20/1844111/20/18441 Results 24hrs Laboratory Tests Test 11/20/18 04:42 White Blood Count 6.6 Red Blood Count 3.60 L Hemoglobin 11.6 L Hematocrit 35.3 L Mean Corpuscular Volume 98.1 Mean Corpuscular Hemoglobin 32.2 Mean Corpuscular Hemoglobin Concent 32.9 Red Cell Distribution Width 12.8 Platelet Count 107 L Mean Platelet Volume 14.2 H Immature Granulocytes % 0.800 H Neutrophils % 64.7 Lymphocytes % 23.5 Monocytes % 7.1 Eosinophils % 3.6 Basophils % 0.3 Nucleated Red Blood Cells % 0.0 Immature Granulocytes # 0.050 H Neutrophils # 4.3 Lymphocytes # 1.6 Monocytes # 0.5 Eosinophils # 0.2 Basophils # 0.0 Nucleated Red Blood Cells # 0.0 Sodium Level 135 Potassium Level 3.5 Chloride Level 105 Carbon Dioxide Level 27 Anion Gap 3 L Blood Urea Nitrogen 12 Creatinine 0.73 Est Glomerular Filtrat Rate mL/min Glucose Level 131 Calcium Level 8.6 Phosphorus Level 2.5 Magnesium Level 1.7 Medications Medication Current Medications IV Flush (NS 3 ml) 3 ml PER PROTOCOL IV ; Start 11/14/18 at 00:00 Ondansetron HCl (Zofran Inj) 4 mg Q6H PRN IV NAUSEA/VOMITING; Start 11/14/18 at 00:00 Acetaminophen (Tylenol Tab) 650 mg Q6H PRN PO .PAIN 1-3 OR TEMP; Start 11/14/18 at 00:00 Morphine Sulfate (morphine) 2 mg Q4H PRN IV .PAIN 7-10 Last administered on 11/19/18at 06:22; Admin Dose 2 MG; Start 11/14/18 at 00:00 Enoxaparin Sodium (Lovenox) 30 mg DAILY SC Last administered on 11/16/18at 08:55; Admin Dose 30 MG; Start 11/14/18 at 09:00; Status Hold Ceftriaxone Sodium 50 ml @ 100 mls/hr Q24H IVPB Last administered on 11/19/18at 13:19; Admin Dose 100 MLS/HR; Start 11/14/18 at 13:30 Acetaminophen (Tylenol Supp) 650 mg Q6H PRN [place] ELEVATED TEMPERATURE Last administered on 11/14/18at 23:33; Admin Dose 650 MG; Start 11/14/18 at 21:30 Clonidine (Catapres) 0.1 mg Q6H PRN PO PRN SBP > 160; Start 11/15/18 at 00:00 Hydralazine HCl (Apresoline) 25 mg Q6 PRN PO PRN SBP > 160 Last administered on 11/19/18at 21:38; Admin Dose 25 MG; Start 11/15/18 at 00:00 Sodium Phosphate (Neutra-Phos) 250 mg BID GTB Last administered on 11/20/18 09:05; Admin Dose 250 MG; Start 11/16/18 at 09:00 Ascorbic Acid (Vitamin C) 500 mg DAILY NGT Last administered on 11/20/18 09:05; Admin Dose 500 MG; Start 11/18/18 at 09:00 Zinc Sulfate (Zinc Sulfate) 220 mg DAILY NGT Last administered on 11/20/18 09:05; Admin Dose 220 MG; Start 11/18/18 at 09:00 Famotidine (Pepcid) 20 mg DAILY PO Last administered on 11/20/18 09:05; Admin Dose 20 MG; Start 11/19/18 at 09:00 Multivitamins (Multivitamin) 30 ml DAILY NGT Last administered on 11/20/18 09:04; Admin Dose 30 ML; Start 11/19/18 at 11:00 ALYSIA JIM M.D. Nov 20, 2018 10:40
--- NOTE | 2018-11-20 12:13 | CONS ---
Assessment/Plan Assessment/Plan Hospital Course (Demo Recall) No acute changes, looks comfortable, no fevers Microbiology: Urine culture on admission grew Proteus mirabilis, blood culture growing alphahemolytic strep species, repeat blood cultures negative. Chest x-ray revealed scattered atelectasis in both lungs Antimicrobials: Rocephin Allergy: Penicillin Indwelling: NG tube, Jacobs catheter, PEG Physical examination: Chronically ill-appearing elderly woman who looks comfortable. Head atraumatic normocephalic sclera nonicteric. Bugle mucosa dry. Neck is supple, chest rise symmetrical, breath sounds diminished bases. Heart: S1-S2. Abdomen soft bowel sounds present. Extremities without cyanosis. Assessment: 1. Sepsis, present on admission 2. Strep bacteremia likely secondary to pneumonia 3. Dysphasia 4. Acute on chronic encephalopathy 5. Multiple chronic wounds Plan: Patient is clinically stable, repeat blood cultures negative, continue abx, aspiration precautions, f/u 2D echo Consultation Date/Type/Reason Admit Date/Time Nov 13, 2018 at 23:15 Initial Consult Date 11/18/18 Type of Consult id Requesting Provider: WALDO CLEARY MD Date/Time of Note DATE: 11/20/18 TIME: 12:13 Exam/Review of Systems Exam Vitals Vital Signs Date Temp Pulse Resp B/P (MAP) Pulse Ox O2 O2 Flow FiO2 Time Delivery Rate 11/20/18 97.8 88 18 116/76 98 Room Air 10:00 (89) 11/17/18 2.0 18:48 Intake and Output 11/19/18 11/19/18 11/20/18 1515:00 23:00 07:00 IntakeIntake Total 1400 ml 1320 ml OutputOutput Total 800 ml 550 ml BalanceBalance -800 ml 850 ml 1320 ml Results Result Diagram: 11/20/18 0442 11/20/18 0442 Results 24hrs Laboratory Tests Test 11/20/18 04:42 White Blood Count 6.6 Red Blood Count 3.60 L Hemoglobin 11.6 L Hematocrit 35.3 L Mean Corpuscular Volume 98.1 Mean Corpuscular Hemoglobin 32.2 Mean Corpuscular Hemoglobin Concent 32.9 Red Cell Distribution Width 12.8 Platelet Count 107 L Mean Platelet Volume 14.2 H Immature Granulocytes % 0.800 H Neutrophils % 64.7 Lymphocytes % 23.5 Monocytes % 7.1 Eosinophils % 3.6 Basophils % 0.3 Nucleated Red Blood Cells % 0.0 Immature Granulocytes # 0.050 H Neutrophils # 4.3 Lymphocytes # 1.6 Monocytes # 0.5 Eosinophils # 0.2 Basophils # 0.0 Nucleated Red Blood Cells # 0.0 Sodium Level 135 Potassium Level 3.5 Chloride Level 105 Carbon Dioxide Level 27 Anion Gap 3 L Blood Urea Nitrogen 12 Creatinine 0.73 Est Glomerular Filtrat Rate mL/min Glucose Level 131 Calcium Level 8.6 Phosphorus Level 2.5 Magnesium Level 1.7 Medications Medication Current Medications IV Flush (NS 3 ml) 3 ml PER PROTOCOL IV ; Start 11/14/18 at 00:00 Ondansetron HCl (Zofran Inj) 4 mg Q6H PRN IV NAUSEA/VOMITING; Start 11/14/18 at 00:00 Acetaminophen (Tylenol Tab) 650 mg Q6H PRN PO .PAIN 1-3 OR TEMP; Start 11/14/18 at 00:00 Morphine Sulfate (morphine) 2 mg Q4H PRN IV .PAIN 7-10 Last administered on 11/19/18at 06:22; Admin Dose 2 MG; Start 11/14/18 at 00:00 Enoxaparin Sodium (Lovenox) 30 mg DAILY SC Last administered on 11/16/18at 08:55; Admin Dose 30 MG; Start 11/14/18 at 09:00; Status Hold Ceftriaxone Sodium 50 ml @ 100 mls/hr Q24H IVPB Last administered on 11/19/18at 13:19; Admin Dose 100 MLS/HR; Start 11/14/18 at 13:30 Acetaminophen (Tylenol Supp) 650 mg Q6H PRN [place] ELEVATED TEMPERATURE Last administered on 11/14/18at 23:33; Admin Dose 650 MG; Start 11/14/18 at 21:30 Clonidine (Catapres) 0.1 mg Q6H PRN PO PRN SBP > 160; Start 11/15/18 at 00:00 Hydralazine HCl (Apresoline) 25 mg Q6 PRN PO PRN SBP > 160 Last administered on 11/19/18at 21:38; Admin Dose 25 MG; Start 11/15/18 at 00:00 Sodium Phosphate (Neutra-Phos) 250 mg BID GTB Last administered on 11/20/18at 09:05; Admin Dose 250 MG; Start 11/16/18 at 09:00 Ascorbic Acid (Vitamin C) 500 mg DAILY NGT Last administered on 11/20/18 09:05; Admin Dose 500 MG; Start 11/18/18 at 09:00 Zinc Sulfate (Zinc Sulfate) 220 mg DAILY NGT Last administered on 11/20/18at 09:05; Admin Dose 220 MG; Start 11/18/18 at 09:00 Famotidine (Pepcid) 20 mg DAILY PO Last administered on 11/20/18at 09:05; Admin Dose 20 MG; Start 11/19/18 at 09:00 Multivitamins (Multivitamin) 30 ml DAILY NGT Last administered on 11/20/18at 09:04; Admin Dose 30 ML; Start 11/19/18 at 11:00 SALMA HOOKER NP Nov 20, 2018 12:13
[2018-11-20] MEDS: CEFTRIAXONE 1 GM/50 ML (PMX) 50 ML IVPB SCH (14:23)
--- NOTE | 2018-11-20 15:37 | PN ---
Date/Time of Note Date/Time of Note DATE: 11/20/18 TIME: 15:34 Assessment/Plan VTE Prophylaxis Risk score (from [facility] [place])>0 risk: 7 SCD applied (from [facility] [place]): Yes Pharmacological prophylaxis: NA/contraindicated Pharm contraindication: thrombocytopenia Lines/Catheters [facility] [place] [employer] [place] line still needed: Yes Urinary Cath still in place: Yes Reason Cath still needed: urinary retention Assessment/Plan Hospital Course Patient started on pured diet with nectar thick liquids via spoon per speech therapy with recommendation, NG tube DC'd, patient is awake, confused. Assessment/Plan -Sepsis secondary to urinary tract infection, continue antibiotics. Dr. Griffiths is asked to see patient in infection disease consultation. -Gram-positive cocci bacteremia -Proteus M UTI, continue Rocephin. -Acute metabolic encephalopathy. No evidence of acute intracranial hemorrhage, infarcts, or acute intracranial pathology per CT brain. -Hypernatremia, resolved. Dr. Edwards is following in nephrology consultation. -Acute kidney injury -Cardiomegaly and pulmonary vascular congestion per chest x-ray -Thrombocytopenia, Dr. Herndon is following in hematology consultation. -Dysphagia, continue NG tube feeding, aspiration precaution. -Multiple stage I pressure ulcers, air mattress, off loading, optimize nutrition. Further recommendations based on clinical course. Plan of care discussed with Dr. Jin Result Diagram: 11/20/18 0442 11/20/18 0442 Results 24hrs Laboratory Tests Test 11/20/18 04:42 White Blood Count 6.6 Red Blood Count 3.60 L Hemoglobin 11.6 L Hematocrit 35.3 L Mean Corpuscular Volume 98.1 Mean Corpuscular Hemoglobin 32.2 Mean Corpuscular Hemoglobin Concent 32.9 Red Cell Distribution Width 12.8 Platelet Count 107 L Mean Platelet Volume 14.2 H Immature Granulocytes % 0.800 H Neutrophils % 64.7 Lymphocytes % 23.5 Monocytes % 7.1 Eosinophils % 3.6 Basophils % 0.3 Nucleated Red Blood Cells % 0.0 Immature Granulocytes # 0.050 H Neutrophils # 4.3 Lymphocytes # 1.6 Monocytes # 0.5 Eosinophils # 0.2 Basophils # 0.0 Nucleated Red Blood Cells # 0.0 Sodium Level 135 Potassium Level 3.5 Chloride Level 105 Carbon Dioxide Level 27 Anion Gap 3 L Blood Urea Nitrogen 12 Creatinine 0.73 Est Glomerular Filtrat Rate mL/min Glucose Level 131 Calcium Level 8.6 Phosphorus Level 2.5 Magnesium Level 1.7 Subjective 24 Hr Interval Summary Free Text/Dictation Constitutional: alert, frail Respiratory: diminished breath sounds Cardiovascular: nl pulses Gastrointestinal: soft, non-tender Extremities: normal pulses Neurological: confused Exam/Review of Systems Exam Vitals Vital Signs Date Temp Pulse Resp B/P (MAP) Pulse Ox O2 O2 Flow FiO2 Time Delivery Rate 11/20/18 97.8 95 16 109/58 99 Room Air 14:00 (75) 11/17/18 2.0 18:48 Intake and Output 11/19/18 11/19/18 11/20/18 1515:00 23:00 07:00 IntakeIntake Total 1400 ml 1320 ml OutputOutput Total 800 ml 550 ml BalanceBalance -800 ml 850 ml 1320 ml Exam Constitutional: alert, frail Respiratory: diminished breath sounds Cardiovascular: nl pulses Gastrointestinal: soft, non-tender Extremities: normal pulses Neurological: confused Results Results 24hrs Laboratory Tests Test 11/20/18 04:42 White Blood Count 6.6 Red Blood Count 3.60 L Hemoglobin 11.6 L Hematocrit 35.3 L Mean Corpuscular Volume 98.1 Mean Corpuscular Hemoglobin 32.2 Mean Corpuscular Hemoglobin Concent 32.9 Red Cell Distribution Width 12.8 Platelet Count 107 L Mean Platelet Volume 14.2 H Immature Granulocytes % 0.800 H Neutrophils % 64.7 Lymphocytes % 23.5 Monocytes % 7.1 Eosinophils % 3.6 Basophils % 0.3 Nucleated Red Blood Cells % 0.0 Immature Granulocytes # 0.050 H Neutrophils # 4.3 Lymphocytes # 1.6 Monocytes # 0.5 Eosinophils # 0.2 Basophils # 0.0 Nucleated Red Blood Cells # 0.0 Sodium Level 135 Potassium Level 3.5 Chloride Level 105 Carbon Dioxide Level 27 Anion Gap 3 L Blood Urea Nitrogen 12 Creatinine 0.73 Est Glomerular Filtrat Rate mL/min Glucose Level 131 Calcium Level 8.6 Phosphorus Level 2.5 Magnesium Level 1.7 Medications Medication Current Medications IV Flush (NS 3 ml) 3 ml PER PROTOCOL IV ; Start 11/14/18 at 00:00 Ondansetron HCl (Zofran Inj) 4 mg Q6H PRN IV NAUSEA/VOMITING; Start 11/14/18 at 00:00 Acetaminophen (Tylenol Tab) 650 mg Q6H PRN PO .PAIN 1-3 OR TEMP; Start 11/14/18 at 00:00 Morphine Sulfate (morphine) 2 mg Q4H PRN IV .PAIN 7-10 Last administered on 11/19/18 06:22; Admin Dose 2 MG; Start 11/14/18 at 00:00 Enoxaparin Sodium (Lovenox) 30 mg DAILY SC Last administered on 11/16/18 08:55; Admin Dose 30 MG; Start 11/14/18 at 09:00; Status Hold Ceftriaxone Sodium 50 ml @ 100 mls/hr Q24H IVPB Last administered on 11/20/18 14:23; Admin Dose 100 MLS/HR; Start 11/14/18 at 13:30 Acetaminophen (Tylenol Supp) 650 mg Q6H PRN [place] ELEVATED TEMPERATURE Last administered on 11/14/18 23:33; Admin Dose 650 MG; Start 11/14/18 at 21:30 Clonidine (Catapres) 0.1 mg Q6H PRN PO PRN SBP > 160; Start 11/15/18 at 00:00 Hydralazine HCl (Apresoline) 25 mg Q6 PRN PO PRN SBP > 160 Last administered on 11/19/18 21:38; Admin Dose 25 MG; Start 11/15/18 at 00:00 Sodium Phosphate (Neutra-Phos) 250 mg BID GTB Last administered on 11/20/18 09:05; Admin Dose 250 MG; Start 11/16/18 at 09:00 Ascorbic Acid (Vitamin C) 500 mg DAILY NGT Last administered on 11/20/18 09:05; Admin Dose 500 MG; Start 11/18/18 at 09:00 Zinc Sulfate (Zinc Sulfate) 220 mg DAILY NGT Last administered on 11/20/18 09:05; Admin Dose 220 MG; Start 11/18/18 at 09:00 Famotidine (Pepcid) 20 mg DAILY PO Last administered on 11/20/18 09:05; Admin Dose 20 MG; Start 11/19/18 at 09:00 Multivitamins (Multivitamin) 30 ml DAILY NGT Last administered on 11/20/18 09:04; Admin Dose 30 ML; Start 11/19/18 at 11:00 SHANE DOWNEY Nov 20, 2018 15:37
--- NOTE | 2018-11-20 17:18 | RADRPT ---
Echocardiogram Report Patient Name: JOSEPH HUGO KPatient ID: [id number] : [id number] (78y 6m)Study Date: 11/20/2018 9:06:39 AM Gender: FAccession #: [id number] Tech: Rigoberto Lazcano [facility] Location: [facility] Ref.Physician: SALMA HOOKER Height(Cm): BSA: Weight(Kg): Quality: Technically Difficult StudyAccount #: Procedures: Echocardiographic Report: Transthoracic echocardiogram with complete 2D, M-Mode, and doppler examination. Indications: R/o vegetation. Measurements: 2D/M Mode Doppler Measurement Value Normal Range Measurement Value Normal Range LVIDd 2D 3.8 [ 3.8 - 5.2 ] cm AV Peak Carlos Enrique 1.6 [ 100.0 - 170.0 ] cm/sec LVIDs 2D 2.8 [ 2.2 - 3.5 ] cm AV Peak PG 10.0 [ 2.0 - 9.0 ] mmHg LVPWd 2D 1.1 [ 0.6 - 0.9 ] cm LVOT Peak Carlos Enrique 1.3 [ 70.0 - 110.0 ] cm/sec IVSd 2D 1.1 [ 0.6 - 0.9 ] cm LVOT Peak PG 7.0 [ 2.0 - 6.0 ] mmHg AoR Diam 2D 2.6 [ 2.3 - 3.1 ] cm MV E Peak Carlos Enrique 1.9 [ 60.0 - 130.0 ] cm/sec EDV 2D 61.6 [ 46.0 - 106.0 ] ml MV Peak Carlos Enrique 2.0 [ 60.0 - 130.0 ] cm/sec ESV 2D 29.8 [ 14.0 - 42.0 ] ml MV Peak PG 16.0 [ 1.0 - 10.0 ] mmHg EF 2D 51.6 [ 54.0 - 74.0 ] percent MV Mean Carlos Enrique 1.2 cm/sec LA Dimen 2D 4.2 [ 2.7 - 3.8 ] cm MV Mean PG 7.0 mmHg MV Decel Time 127 [ 104 - 258 ] msec MV VTI 36.1 cm RA Pressure 3.0 mmHg Findings: Left Ventricle: Normal left ventricular systolic function. Normal left ventricular cavity size. Left ventricular wall thickness upper limits of normal. Ejection fraction is visually estimated at 60-65 %. Tissue Doppler/Mitral Doppler indices are indeterminate in this study due to the presence of mitral stenosis. Right Ventricle: Normal right ventricular size. Normal right ventricular systolic function. Left Atrium: There is mild enlargement of left atrium. Right Atrium: The right atrium is normal in size. Mitral Valve: Mitral valve leaflets appear mildly thickened. Moderate mitral annular calcification. Trace mitral regurgitation. Moderate mitral stenosis. Mitral valve Max Velocity 2.01 m/sec. MaxPG 16.00 mmHg. MeanPG 7.00 mmHg. Aortic Valve: No hemodynamically significant aortic stenosis by doppler. Aortic cusps appear mildly calcified. Tricuspid Valve: Normal appearance of the tricuspid valve. Unable to obtain RVSP due to minimal presence of tricuspid regurgitation. Pericardium: Normal pericardium with no significant pericardial effusion. Aorta: Normal aortic root. IVC: Normal size and normal respiratory collapse consistent with normal right atrial pressure. Conclusions: Normal left ventricular systolic function. Normal left ventricular cavity size. Left ventricular wall thickness upper limits of normal. Ejection fraction is visually estimated at 60-65 %. Tissue Doppler/Mitral Doppler indices are indeterminate in this study due to the presence of mitral stenosis. There is mild enlargement of left atrium. Mitral valve leaflets appear mildly thickened. Moderate mitral annular calcification. Moderate mitral stenosis by gradient only. MVA not calculated. MeanPG 7.00 mmHg. Trace mitral regurgitation. Normal appearance of the tricuspid valve. Unable to obtain RVSP due to minimal presence of tricuspid regurgitation. Electronically Signed By: Kiko Valdivia 2018-11-20 17:18:06 PDT
[2018-11-21] VITALS (12 sets, daily range): BP systolic 109–144; BP diastolic 51–89; PULSE 72–106; RESP 16–19
[2018-11-21] MEDS ORDERED: POTASSIUM CHLORIDE (SR) 20 MEQ TAB PO STA (08:25)
[2018-11-21] MEDS ORDERED: MAGNESIUM SULFATE 2 GM/50 ML 50 ML IVPB ONE (08:30)
--- NOTE | 2018-11-21 08:49 | PN ---
DATE: 11/21/2018 SUBJECTIVE: The patient remains confused. No other acute events noted overnight. OBJECTIVE: VITAL SIGNS: Blood pressure is 134/63, respirations 18, pulse 96, temperature 99.4. HEENT: Head is normocephalic. NECK: Supple. HEART: Regular rate. LUNGS: Show diminished breath sounds at the base. ABDOMEN: Soft, nontender to palpation without rebound or guarding. EXTREMITIES: Negative for clubbing, cyanosis, no edema. DERMATOLOGIC: No rashes. MUSCULOSKELETAL: No joint effusion. NEUROLOGIC: No change in exam. MEDICATIONS: Reviewed. LABORATORY DATA: From 11/21/2018 was reviewed. ASSESSMENT AND PLAN: 1. Nonoliguric acute kidney injury with previous baseline creatinine of 0.7 mg/dL. Etiology of acut e kidney injury is secondary to hemodynamics. Renal function is improved. Continue to monitor. 2. Hypokalemia and hypomagnesemia. We will replete with potassium chloride and magnesium sulfate. 3. Hypernatremia, improved. Continue to encourage free water intake. 4. Mineral bone disorder. Monitor calcium and phosphorus levels. 5. Acute encephalopathy, etiology is toxic metabolic. 6. Sepsis secondary to urinary tract infection. Continue current treatment plan. 7. Acute respiratory failure, resolved. 8. Dysphagia. Continue modified diet. Dictated By: GLENN FLOYD DO NR/NTS Conf#: [id number] DID#: [id number] CC: CARLOS A LLANES MD;*EndCC*
[2018-11-21] MEDS: NEUTRA-PHOS 250 MG PACKET PO SCH ×2 (09:55→21:03)
[2018-11-21] MEDS: MULTIVITAMINS 30 ML CUP NGT SCH (09:55)
[2018-11-21] MEDS: FAMOTIDINE 20 MG TAB PO SCH (09:56)
[2018-11-21] MEDS: ASCORBIC ACID 500 MG TAB NGT SCH (09:56)
[2018-11-21] MEDS: ZINC SULFATE 220 MG CAP NGT SCH (09:56)
--- NOTE | 2018-11-21 12:08 | CONS ---
Assessment/Plan Assessment/Plan Hospital Course (Demo Recall) No acute changes, awake, confused, looks comfortable, no fevers Microbiology: Urine culture on admission grew Proteus mirabilis, blood culture growing alphahemolytic strep species, repeat blood cultures negative. Chest x-ray revealed scattered atelectasis in both lungs Antimicrobials: Rocephin Allergy: Penicillin Indwelling: Jacobs catheter Physical examination: Chronically ill-appearing elderly woman who looks comfortable. Head atraumatic normocephalic sclera nonicteric. Bugle mucosa dry. Neck is supple, chest rise symmetrical, breath sounds diminished bases. Heart: S1-S2. Abdomen soft bowel sounds present. Extremities without cyanosis. Assessment: 1. Sepsis, present on admission 2. Strep bacteremia likely secondary to pneumonia 3. Dysphasia 4. Acute on chronic encephalopathy 5. Multiple chronic wounds Plan: Clinically improving, repeat blood cultures negative, continue abx to complete 2 weeks, 2D echo noted Consultation Date/Type/Reason Admit Date/Time Nov 13, 2018 at 23:15 Initial Consult Date 11/18/18 Type of Consult id Requesting Provider: WALDO CLEARY MD Date/Time of Note DATE: 11/21/18 TIME: 12:06 Exam/Review of Systems Exam Vitals Vital Signs Date Temp Pulse Resp B/P (MAP) Pulse Ox O2 O2 Flow FiO2 Time Delivery Rate 11/21/18 99.4 79 16 127/57 97 Room Air 10:00 (80) 11/17/18 2.0 18:48 Intake and Output 11/20/18 11/20/18 11/21/18 1515:00 23:00 07:00 IntakeIntake Total 670 ml 60 ml OutputOutput Total 850 ml 700 ml 9000 ml BalanceBalance -180 ml -640 ml -9000 ml Results Result Diagram: 11/20/18 0442 11/21/18 0431 Results 24hrs Laboratory Tests Test 11/21/18 04:31 Sodium Level 139 Potassium Level 3.2 L Chloride Level 107 Carbon Dioxide Level 23 Anion Gap 9 # Blood Urea Nitrogen 12 Creatinine 0.72 Est Glomerular Filtrat Rate mL/min Glucose Level 112 Calcium Level 8.7 Phosphorus Level 3.1 Magnesium Level 1.6 L Medications Medication Current Medications IV Flush (NS 3 ml) 3 ml PER PROTOCOL IV ; Start 11/14/18 at 00:00 Ondansetron HCl (Zofran Inj) 4 mg Q6H PRN IV NAUSEA/VOMITING; Start 11/14/18 at 00:00 Acetaminophen (Tylenol Tab) 650 mg Q6H PRN PO .PAIN 1-3 OR TEMP; Start 11/14/18 at 00:00 Morphine Sulfate (morphine) 2 mg Q4H PRN IV .PAIN 7-10 Last administered on 11/19/18 06:22; Admin Dose 2 MG; Start 11/14/18 at 00:00 Enoxaparin Sodium (Lovenox) 30 mg DAILY SC Last administered on 11/16/18 08:55; Admin Dose 30 MG; Start 11/14/18 at 09:00; Status Hold Ceftriaxone Sodium 50 ml @ 100 mls/hr Q24H IVPB Last administered on 11/20/18 14:23; Admin Dose 100 MLS/HR; Start 11/14/18 at 13:30 Acetaminophen (Tylenol Supp) 650 mg Q6H PRN [place] ELEVATED TEMPERATURE Last administered on 11/14/18 23:33; Admin Dose 650 MG; Start 11/14/18 at 21:30 Clonidine (Catapres) 0.1 mg Q6H PRN PO PRN SBP > 160; Start 11/15/18 at 00:00 Hydralazine HCl (Apresoline) 25 mg Q6 PRN PO PRN SBP > 160 Last administered on 11/19/18 21:38; Admin Dose 25 MG; Start 11/15/18 at 00:00 Ascorbic Acid (Vitamin C) 500 mg DAILY NGT Last administered on 11/21/18 09:56; Admin Dose 500 MG; Start 11/18/18 at 09:00 Zinc Sulfate (Zinc Sulfate) 220 mg DAILY NGT Last administered on 11/21/18 09:56; Admin Dose 220 MG; Start 11/18/18 at 09:00 Famotidine (Pepcid) 20 mg DAILY PO Last administered on 11/21/18 09:56; Admin Dose 20 MG; Start 11/19/18 at 09:00 Multivitamins (Multivitamin) 30 ml DAILY NGT Last administered on 11/21/18 09:55; Admin Dose 30 ML; Start 11/19/18 at 11:00 Sodium Phosphate (Neutra-Phos) 250 mg BID PO Last administered on 4/18/19at 09: 55; Admin Dose 250 MG; Start 11/21/18 at 09:00 SALMA HOOKER NP Nov 21, 2018 12:08
--- NOTE | 2018-11-21 12:29 | CONS ---
Assessment/Plan Assessment/Plan Hospital Course (Demo Recall) #Thrombocytopenia -platelets are improving and are now > 100K -this may sepsis related or 2/2 to her antibiotics. - DIC unlikely given the normal fibrinogen -TTP unlikely given normal LDH -would not transfuse platelets at this time unless platelet count is < 20K - abdominal ultrasound demonstrates fatty liver -HIV hepatitis are negative #Urosepsis -continue antibiotics #ARF -management per nephrology. CR now normal #hypernatremia -improved -Na 144 Thank you for the opportunity to participate in this patients care A total of 40 minutes of face to face time was spent speaking with the patient, of which greater than 50% was spent in counseling and coordination of care and the detailed question and answer session. Consultation Date/Type/Reason Admit Date/Time Nov 13, 2018 at 23:15 Initial Consult Date 11/18/18 Type of Consult Hematology Reason for Consultation thrombocytopenia Requesting Provider: WALDO CLEARY MD Date/Time of Note DATE: 11/21/18 TIME: 12:28 24 HR Interval Summary Free Text/Dictation pt with low grade fevers. no bleeding. still with low Mag and K Exam/Review of Systems Exam Vitals Vital Signs Date Temp Pulse Resp B/P (MAP) Pulse Ox O2 O2 Flow FiO2 Time Delivery Rate 11/21/18 99.4 79 16 127/57 97 Room Air 10:00 (80) 11/17/18 2.0 18:48 Intake and Output 11/20/18 11/20/18 11/21/18 1515:00 23:00 07:00 IntakeIntake Total 670 ml 60 ml OutputOutput Total 850 ml 700 ml 9000 ml BalanceBalance -180 ml -640 ml -9000 ml Constitutional: non-verbal Psych: confusion Eyes: nl conjunctiva Neck: supple Respiratory: clear to auscultation Cardiovascular: regular rate and rhythm Gastrointestinal: soft Musculoskeletal: nl extremities to inspection Extremities: normal pulses Results Result Diagram: 11/20/18 0442 11/21/18 0431 Results 24hrs Laboratory Tests Test 11/21/18 04:31 Sodium Level 139 Potassium Level 3.2 L Chloride Level 107 Carbon Dioxide Level 23 Anion Gap 9 # Blood Urea Nitrogen 12 Creatinine 0.72 Est Glomerular Filtrat Rate mL/min Glucose Level 112 Calcium Level 8.7 Phosphorus Level 3.1 Magnesium Level 1.6 L Medications Medication Current Medications IV Flush (NS 3 ml) 3 ml PER PROTOCOL IV ; Start 11/14/18 at 00:00 Ondansetron HCl (Zofran Inj) 4 mg Q6H PRN IV NAUSEA/VOMITING; Start 11/14/18 at 00:00 Acetaminophen (Tylenol Tab) 650 mg Q6H PRN PO .PAIN 1-3 OR TEMP; Start 11/14/18 at 00:00 Morphine Sulfate (morphine) 2 mg Q4H PRN IV .PAIN 7-10 Last administered on 11/19/18 06:22; Admin Dose 2 MG; Start 11/14/18 at 00:00 Enoxaparin Sodium (Lovenox) 30 mg DAILY SC Last administered on 11/16/18 08:55; Admin Dose 30 MG; Start 11/14/18 at 09:00; Status Hold Ceftriaxone Sodium 50 ml @ 100 mls/hr Q24H IVPB Last administered on 11/20/18 14:23; Admin Dose 100 MLS/HR; Start 11/14/18 at 13:30 Acetaminophen (Tylenol Supp) 650 mg Q6H PRN [place] ELEVATED TEMPERATURE Last administered on 11/14/18 23:33; Admin Dose 650 MG; Start 11/14/18 at 21:30 Clonidine (Catapres) 0.1 mg Q6H PRN PO PRN SBP > 160; Start 11/15/18 at 00:00 Hydralazine HCl (Apresoline) 25 mg Q6 PRN PO PRN SBP > 160 Last administered on 11/19/18 21:38; Admin Dose 25 MG; Start 11/15/18 at 00:00 Ascorbic Acid (Vitamin C) 500 mg DAILY NGT Last administered on 11/21/18 09:56; Admin Dose 500 MG; Start 11/18/18 at 09:00 Zinc Sulfate (Zinc Sulfate) 220 mg DAILY NGT Last administered on 11/21/18 09:56; Admin Dose 220 MG; Start 11/18/18 at 09:00 Famotidine (Pepcid) 20 mg DAILY PO Last administered on 11/21/18 09:56; Admin Dose 20 MG; Start 11/19/18 at 09:00 Multivitamins (Multivitamin) 30 ml DAILY NGT Last administered on 11/21/18 09:55; Admin Dose 30 ML; Start 11/19/18 at 11:00 Sodium Phosphate (Neutra-Phos) 250 mg BID PO Last administered on 11/21/18at 09:55; Admin Dose 250 MG; Start 11/21/18 at 09:00 ALYSIA JIM M.D. Nov 21, 2018 12:29
--- NOTE | 2018-11-21 13:20 | PN ---
Date/Time of Note Date/Time of Note DATE: 11/21/18 TIME: 13:13 Assessment/Plan VTE Prophylaxis Risk score (from Ns)>0 risk: 3 SCD applied (from Ns): Yes Pharmacological prophylaxis: NA/contraindicated Pharm contraindication: thrombocytopenia Lines/Catheters [facility] Saline Lock Central line still needed: Yes Urinary Cath still in place: Yes Reason Cath still needed: urinary retention Assessment/Plan Hospital Course Patient is awake, confused. Tolerates pured diet. Assessment/Plan -Sepsis secondary to urinary tract infection, continue antibiotics. Dr. Griffiths is following in infection disease consultation. -Alpha hemolytic strep bacteremia, 2D echo with no vegetation, continue Rocephin for 2 weeks per ID recommendations. -Proteus M UTI, continue Rocephin. -Acute metabolic encephalopathy. No evidence of acute intracranial hemorrhage, infarcts, or acute intracranial pathology per CT brain. -Cardiomegaly with ejection fraction of 60% -Mitral stenosis -Hypernatremia, resolved. Dr. Edwards is following in nephrology consultation. -Acute kidney injury -Thrombocytopenia, Dr. Herndon is following in hematology consultation. -Dysphagia, continue NG tube feeding, aspiration precaution. -Multiple stage I pressure ulcers, air mattress, off loading, optimize nutrition. Further recommendations based on clinical course. Plan of care discussed with Dr. Jin Result Diagram: 11/20/18 0442 11/21/18 0431 Results 24hrs Laboratory Tests Test 11/21/18 04:31 Sodium Level 139 Potassium Level 3.2 L Chloride Level 107 Carbon Dioxide Level 23 Anion Gap 9 # Blood Urea Nitrogen 12 Creatinine 0.72 Est Glomerular Filtrat Rate mL/min Glucose Level 112 Calcium Level 8.7 Phosphorus Level 3.1 Magnesium Level 1.6 L Exam/Review of Systems Exam Vitals Vital Signs Date Temp Pulse Resp B/P (MAP) Pulse Ox O2 O2 Flow FiO2 Time Delivery Rate 11/21/18 97.5 101 18 129/74 12:00 (92) 11/21/18 97 Room Air 10:00 11/17/18 2.0 18:48 Intake and Output 11/20/18 11/20/18 11/21/18 1515:00 23:00 07:00 IntakeIntake Total 670 ml 60 ml OutputOutput Total 850 ml 700 ml 9000 ml BalanceBalance -180 ml -640 ml -9000 ml Exam Constitutional: alert, frail Respiratory: diminished breath sounds Cardiovascular: nl pulses Gastrointestinal: soft, non-tender Extremities: normal pulses Neurological: confused Results Results 24hrs Laboratory Tests Test 11/21/18 04:31 Sodium Level 139 Potassium Level 3.2 L Chloride Level 107 Carbon Dioxide Level 23 Anion Gap 9 # Blood Urea Nitrogen 12 Creatinine 0.72 Est Glomerular Filtrat Rate mL/min Glucose Level 112 Calcium Level 8.7 Phosphorus Level 3.1 Magnesium Level 1.6 L Medications Medication Current Medications IV Flush (NS 3 ml) 3 ml PER PROTOCOL IV ; Start 11/14/18 at 00:00 Ondansetron HCl (Zofran Inj) 4 mg Q6H PRN IV NAUSEA/VOMITING; Start 11/14/18 at 00:00 Acetaminophen (Tylenol Tab) 650 mg Q6H PRN PO .PAIN 1-3 OR TEMP; Start 11/14/18 at 00:00 Morphine Sulfate (morphine) 2 mg Q4H PRN IV .PAIN 7-10 Last administered on 11/19/18at 06:22; Admin Dose 2 MG; Start 11/14/18 at 00:00 Enoxaparin Sodium (Lovenox) 30 mg DAILY SC Last administered on 11/16/18at 08:55; Admin Dose 30 MG; Start 11/14/18 at 09:00; Status Hold Ceftriaxone Sodium 50 ml @ 100 mls/hr Q24H IVPB Last administered on 11/20/18at 14:23; Admin Dose 100 MLS/HR; Start 11/14/18 at 13:30 Acetaminophen (Tylenol Supp) 650 mg Q6H PRN [place] ELEVATED TEMPERATURE Last administered on 11/14/18at 23:33; Admin Dose 650 MG; Start 11/14/18 at 21:30 Clonidine (Catapres) 0.1 mg Q6H PRN PO PRN SBP > 160; Start 11/15/18 at 00:00 Hydralazine HCl (Apresoline) 25 mg Q6 PRN PO PRN SBP > 160 Last administered on 11/19/18at 21:38; Admin Dose 25 MG; Start 11/15/18 at 00:00 Ascorbic Acid (Vitamin C) 500 mg DAILY NGT Last administered on 11/21/18at 09:56; Admin Dose 500 MG; Start 11/18/18 at 09:00 Zinc Sulfate (Zinc Sulfate) 220 mg DAILY NGT Last administered on 11/21/18 09:56; Admin Dose 220 MG; Start 11/18/18 at 09:00 Famotidine (Pepcid) 20 mg DAILY PO Last administered on 11/21/18 09:56; Admin Dose 20 MG; Start 11/19/18 at 09:00 Multivitamins (Multivitamin) 30 ml DAILY NGT Last administered on 11/21/18 09:55; Admin Dose 30 ML; Start 11/19/18 at 11:00 Sodium Phosphate (Neutra-Phos) 250 mg BID PO Last administered on 11/21/18 09:55; Admin Dose 250 MG; Start 11/21/18 at 09:00 SHANE DOWNEY Nov 21, 2018 13:20
[2018-11-21] MEDS: CEFTRIAXONE 1 GM/50 ML (PMX) 50 ML IVPB SCH (13:58)
[2018-11-21] MEDS: ACETAMINOPHEN 325 MG TAB PO PRN (21:04)
[2018-11-22] VITALS (12 sets, daily range): BP systolic 101–156; BP diastolic 53–68; PULSE 70–104; RESP 16–18
--- NOTE | 2018-11-22 09:09 | PN ---
DATE: 11/22/2018 SUBJECTIVE: The patient is stable, no events overnight. Patient remains confused and agitated. OBJECTIVE: VITAL SIGNS: Blood pressure is 111/53, respiration 18, pulse 70, temperature 99.3. HEENT: Head is normocephalic. NECK: Supple. HEART: Regular rate. LUNGS: Show diminished breath sounds at the base. ABDOMEN: Soft, nontender to palpation without rebound or guarding. EXTREMITIES: Negative for clubbing, cyanosis, no edema. DERMATOLOGIC: No rashes. MUSCULOSKELETAL: No joint effusion. NEUROLOGIC: No change in exam. MEDICATIONS: The patient's medications have been reviewed. LABORATORY DATA: Has been reviewed. ASSESSMENT AND PLAN: 1. Nonoliguric acute kidney injury. Previous baseline creatinine of 0.7 mg/dL. Etiology of acute k idney injury is secondary to hemodynamics. Renal function is improved. Continue to monitor. 2. Hypokalemia and hypomagnesemia, improved. Continue to monitor and replete as needed. 3. Hyponatremia, resolved. Continue to encourage free water intake. 4. Mineral bone disorder, monitor calcium and phosphorus levels. 5. Acute encephalopathy, etiology is toxic metabolic. Continue to monitor. 6. Sepsis secondary to urinary tract infection. Continue current treatment plan. 7. Acute respiratory failure, resolved. 8. Dysphagia. Continue modified diet. Dictated By: GLENN NATH/MARC Conf#: [id number] DID#: [id number]
--- NOTE | 2018-11-22 09:27 | CONS ---
Assessment/Plan Assessment/Plan Hospital Course (Demo Recall) #Thrombocytopenia -platelets are improving and are now stable and> 100K -this may sepsis related or 2/2 to her antibiotics. - DIC unlikely given the normal fibrinogen -TTP unlikely given normal LDH -would not transfuse platelets at this time unless platelet count is < 20K - abdominal ultrasound demonstrates fatty liver -HIV hepatitis are negative #Urosepsis -continue antibiotics #ARF -management per nephrology. CR now normal #hypernatremia -improved -Na 144 Thank you for the opportunity to participate in this patients care A total of 40 minutes of face to face time was spent speaking with the patient, of which greater than 50% was spent in counseling and coordination of care and the detailed question and answer session. Consultation Date/Type/Reason Admit Date/Time Nov 13, 2018 at 23:15 Initial Consult Date 11/18/18 Type of Consult Hematology Reason for Consultation thrombocytopenia Requesting Provider: WALDO CLEARY MD Date/Time of Note DATE: 11/22/18 TIME: 09:25 24 HR Interval Summary Free Text/Dictation no acute overnight events Exam/Review of Systems Exam Vitals Vital Signs Date Temp Pulse Resp B/P (MAP) Pulse Ox O2 O2 Flow FiO2 Time Delivery Rate 11/22/18 99.3 70 18 111/53 97 08:00 (72) 11/21/18 Room Air 18:00 Intake and Output 11/21/18 11/21/18 11/22/18 1515:00 23:00 07:00 IntakeIntake Total 220 ml 240 ml OutputOutput Total 700 ml BalanceBalance 220 ml -460 ml Constitutional: non-verbal Psych: no complaints Head: normocephalic Eyes: nl conjunctiva ENMT: nl external ears & nose Neck: supple Respiratory: clear to auscultation Cardiovascular: regular rate and rhythm Gastrointestinal: soft Musculoskeletal: nl extremities to inspection Results Result Diagram: 11/22/18 0454 11/22/18 0454 Results 24hrs Laboratory Tests Test 11/22/18 04:54 White Blood Count 6.4 Red Blood Count 3.48 L Hemoglobin 11.3 L Hematocrit 34.6 L Mean Corpuscular Volume 99.4 Mean Corpuscular Hemoglobin 32.5 Mean Corpuscular Hemoglobin Concent 32.7 Red Cell Distribution Width 13.2 Platelet Count 151 # Mean Platelet Volume 13.0 H Immature Granulocytes % 0.500 H Neutrophils % 76.6 Lymphocytes % 12.9 L Monocytes % 5.8 Eosinophils % 4.0 Basophils % 0.2 Nucleated Red Blood Cells % 0.0 Immature Granulocytes # 0.030 Neutrophils # 4.9 Lymphocytes # 0.8 Monocytes # 0.4 Eosinophils # 0.3 Basophils # 0.0 Nucleated Red Blood Cells # 0.0 Sodium Level 140 Potassium Level 3.5 Chloride Level 108 Carbon Dioxide Level 25 Anion Gap 7 Blood Urea Nitrogen 13 Creatinine 0.70 Est Glomerular Filtrat Rate mL/min Glucose Level 87 Calcium Level 8.7 Phosphorus Level 3.3 Magnesium Level 2.0 Medications Medication Current Medications IV Flush (NS 3 ml) 3 ml PER PROTOCOL IV ; Start 11/14/18 at 00:00 Ondansetron HCl (Zofran Inj) 4 mg Q6H PRN IV NAUSEA/VOMITING; Start 11/14/18 at 00:00 Acetaminophen (Tylenol Tab) 650 mg Q6H PRN PO .PAIN 1-3 OR TEMP Last administered on 11/21/18 21:04; Admin Dose 650 MG; Start 11/14/18 at 00:00 Morphine Sulfate (morphine) 2 mg Q4H PRN IV .PAIN 7-10 Last administered on 11/19/18 06:22; Admin Dose 2 MG; Start 11/14/18 at 00:00 Enoxaparin Sodium (Lovenox) 30 mg DAILY SC Last administered on 11/16/18 08:55; Admin Dose 30 MG; Start 11/14/18 at 09:00; Status Hold Ceftriaxone Sodium 50 ml @ 100 mls/hr Q24H IVPB Last administered on 11/21/18at 13:58; Admin Dose 100 MLS/HR; Start 11/14/18 at 13:30 Acetaminophen (Tylenol Supp) 650 mg Q6H PRN [place] ELEVATED TEMPERATURE Last administered on 11/14/18 23:33; Admin Dose 650 MG; Start 11/14/18 at 21:30 Clonidine (Catapres) 0.1 mg Q6H PRN PO PRN SBP > 160; Start 11/15/18 at 00:00 Hydralazine HCl (Apresoline) 25 mg Q6 PRN PO PRN SBP > 160 Last administered on 11/19/18at 21:38; Admin Dose 25 MG; Start 11/15/18 at 00:00 Ascorbic Acid (Vitamin C) 500 mg DAILY NGT Last administered on 11/21/18 09:56; Admin Dose 500 MG; Start 11/18/18 at 09:00 Zinc Sulfate (Zinc Sulfate) 220 mg DAILY NGT Last administered on 11/21/18 09:56; Admin Dose 220 MG; Start 11/18/18 at 09:00 Famotidine (Pepcid) 20 mg DAILY PO Last administered on 11/21/18 09:56; Admin Dose 20 MG; Start 11/19/18 at 09:00 Multivitamins (Multivitamin) 30 ml DAILY NGT Last administered on 11/21/18 09:55; Admin Dose 30 ML; Start 11/19/18 at 11:00 Sodium Phosphate (Neutra-Phos) 250 mg BID PO Last administered on 11/21/18 21:03; Admin Dose 250 MG; Start 11/21/18 at 09:00 ALYSIA JIM M.D. Nov 22, 2018 09:26
--- NOTE | 2018-11-22 09:40 | PN ---
Date/Time of Note Date/Time of Note DATE: 11/22/18 TIME: 09:40 Assessment/Plan VTE Prophylaxis Risk score (from Ns)>0 risk: 5 SCD applied (from [facility]): Yes Pharmacological prophylaxis: NA/contraindicated Pharm contraindication: thrombocytopenia Lines/Catheters [facility]from [facility] Saline Lock Central line still needed: Yes Urinary Cath still in place: Yes Reason Cath still needed: urinary retention Assessment/Plan Hospital Course Patient remains hemodynamically stable, awake confused, tolerates pured diet when fed, continue current care. Assessment/Plan -Sepsis secondary to urinary tract infection, resolving continue antibiotics. Dr. Griffiths is following in infection disease consultation. -Alpha hemolytic strep bacteremia, 2D echo with no vegetation, continue Rocephin for 2 weeks per ID recommendations. -Proteus M UTI, continue Rocephin. -Acute metabolic encephalopathy. No evidence of acute intracranial hemorrhage, infarcts, or acute intracranial pathology per CT brain. -Cardiomegaly with ejection fraction of 60% -Mitral stenosis -Hypernatremia, resolved. Dr. Edwards is following in nephrology consultation. -Acute kidney injury -Thrombocytopenia, resolving. Dr. Herndon is following in hematology consultation. -Dysphagia, continue pureed diet, aspiration precaution. -Multiple stage I pressure ulcers, air mattress, off loading, optimize nutrition. Further recommendations based on clinical course. Plan of care discussed with Dr. Jin Result Diagram: 11/22/18 0454 11/22/18 0454 Results 24hrs Laboratory Tests Test 11/22/18 04:54 White Blood Count 6.4 Red Blood Count 3.48 L Hemoglobin 11.3 L Hematocrit 34.6 L Mean Corpuscular Volume 99.4 Mean Corpuscular Hemoglobin 32.5 Mean Corpuscular Hemoglobin Concent 32.7 Red Cell Distribution Width 13.2 Platelet Count 151 # Mean Platelet Volume 13.0 H Immature Granulocytes % 0.500 H Neutrophils % 76.6 Lymphocytes % 12.9 L Monocytes % 5.8 Eosinophils % 4.0 Basophils % 0.2 Nucleated Red Blood Cells % 0.0 Immature Granulocytes # 0.030 Neutrophils # 4.9 Lymphocytes # 0.8 Monocytes # 0.4 Eosinophils # 0.3 Basophils # 0.0 Nucleated Red Blood Cells # 0.0 Sodium Level 140 Potassium Level 3.5 Chloride Level 108 Carbon Dioxide Level 25 Anion Gap 7 Blood Urea Nitrogen 13 Creatinine 0.70 Est Glomerular Filtrat Rate mL/min Glucose Level 87 Calcium Level 8.7 Phosphorus Level 3.3 Magnesium Level 2.0 Exam/Review of Systems Exam Vitals Vital Signs Date Temp Pulse Resp B/P (MAP) Pulse Ox O2 O2 Flow FiO2 Time Delivery Rate 11/22/18 99.3 70 18 111/53 97 08:00 (72) 11/21/18 Room Air 18:00 Intake and Output 11/21/18 11/21/18 11/22/18 1515:00 23:00 07:00 IntakeIntake Total 220 ml 240 ml OutputOutput Total 700 ml BalanceBalance 220 ml -460 ml Exam Constitutional: alert, frail Respiratory: diminished breath sounds Cardiovascular: nl pulses Gastrointestinal: soft, non-tender Extremities: normal pulses Neurological: confused Results Results 24hrs Laboratory Tests Test 11/22/18 04:54 White Blood Count 6.4 Red Blood Count 3.48 L Hemoglobin 11.3 L Hematocrit 34.6 L Mean Corpuscular Volume 99.4 Mean Corpuscular Hemoglobin 32.5 Mean Corpuscular Hemoglobin Concent 32.7 Red Cell Distribution Width 13.2 Platelet Count 151 # Mean Platelet Volume 13.0 H Immature Granulocytes % 0.500 H Neutrophils % 76.6 Lymphocytes % 12.9 L Monocytes % 5.8 Eosinophils % 4.0 Basophils % 0.2 Nucleated Red Blood Cells % 0.0 Immature Granulocytes # 0.030 Neutrophils # 4.9 Lymphocytes # 0.8 Monocytes # 0.4 Eosinophils # 0.3 Basophils # 0.0 Nucleated Red Blood Cells # 0.0 Sodium Level 140 Potassium Level 3.5 Chloride Level 108 Carbon Dioxide Level 25 Anion Gap 7 Blood Urea Nitrogen 13 Creatinine 0.70 Est Glomerular Filtrat Rate mL/min Glucose Level 87 Calcium Level 8.7 Phosphorus Level 3.3 Magnesium Level 2.0 Medications Medication Current Medications IV Flush (NS 3 ml) 3 ml PER PROTOCOL IV ; Start 11/14/18 at 00:00 Ondansetron HCl (Zofran Inj) 4 mg Q6H PRN IV NAUSEA/VOMITING; Start 11/14/18 at 00:00 Acetaminophen (Tylenol Tab) 650 mg Q6H PRN PO .PAIN 1-3 OR TEMP Last administered on 11/21/18at 21:04; Admin Dose 650 MG; Start 11/14/18 at 00:00 Morphine Sulfate (morphine) 2 mg Q4H PRN IV .PAIN 7-10 Last administered on 11/19/18 06:22; Admin Dose 2 MG; Start 11/14/18 at 00:00 Enoxaparin Sodium (Lovenox) 30 mg DAILY SC Last administered on 11/16/18 08:55; Admin Dose 30 MG; Start 11/14/18 at 09:00; Status Hold Ceftriaxone Sodium 50 ml @ 100 mls/hr Q24H IVPB Last administered on 11/21/18 13:58; Admin Dose 100 MLS/HR; Start 11/14/18 at 13:30 Acetaminophen (Tylenol Supp) 650 mg Q6H PRN [place] ELEVATED TEMPERATURE Last administered on 11/14/18 23:33; Admin Dose 650 MG; Start 11/14/18 at 21:30 Clonidine (Catapres) 0.1 mg Q6H PRN PO PRN SBP > 160; Start 11/15/18 at 00:00 Hydralazine HCl (Apresoline) 25 mg Q6 PRN PO PRN SBP > 160 Last administered on 11/19/18 21:38; Admin Dose 25 MG; Start 11/15/18 at 00:00 Ascorbic Acid (Vitamin C) 500 mg DAILY NGT Last administered on 11/21/18 09:56; Admin Dose 500 MG; Start 11/18/18 at 09:00 Zinc Sulfate (Zinc Sulfate) 220 mg DAILY NGT Last administered on 11/21/18 09:56; Admin Dose 220 MG; Start 11/18/18 at 09:00 Famotidine (Pepcid) 20 mg DAILY PO Last administered on 11/21/18 09:56; Admin Dose 20 MG; Start 11/19/18 at 09:00 Multivitamins (Multivitamin) 30 ml DAILY NGT Last administered on 11/21/18 09:55; Admin Dose 30 ML; Start 11/19/18 at 11:00 Sodium Phosphate (Neutra-Phos) 250 mg BID PO Last administered on 11/21/18 21:03; Admin Dose 250 MG; Start 11/21/18 at 09:00 SHANE DOWNEY Nov 22, 2018 09:40
[2018-11-22] MEDS: FAMOTIDINE 20 MG TAB PO SCH (09:52)
[2018-11-22] MEDS: ASCORBIC ACID 500 MG TAB NGT SCH (09:52)
[2018-11-22] MEDS: NEUTRA-PHOS 250 MG PACKET PO SCH ×2 (09:55→21:27)
[2018-11-22] MEDS: MULTIVITAMINS 30 ML CUP NGT SCH (09:55)
--- NOTE | 2018-11-22 13:00 | CONS ---
Assessment/Plan Assessment/Plan Hospital Course (Demo Recall) Awake, confused, looks comfortable, no fevers Microbiology: Urine culture on admission grew Proteus mirabilis, blood culture growing alphahemolytic strep species, repeat blood cultures negative. Chest x-ray revealed scattered atelectasis in both lungs Antimicrobials: Rocephin Allergy: Penicillin Indwelling: Jacobs catheter Physical examination: Chronically ill-appearing elderly woman who looks comfortable. Head atraumatic normocephalic sclera nonicteric. Bugle mucosa dry. Neck is supple, chest rise symmetrical, breath sounds diminished bases. Heart: S1-S2. Abdomen soft bowel sounds present. Extremities without cyanosis. Assessment: 1. Sepsis, present on admission 2. Strep bacteremia likely secondary to pneumonia 3. Dysphasia 4. Acute on chronic encephalopathy 5. Multiple chronic wounds Plan: Clinically unchanged, repeat blood cultures negative, continue abx to co mplete 2 weeks ==> last dose on 11/30/18 Consultation Date/Type/Reason Admit Date/Time Nov 13, 2018 at 23:15 Initial Consult Date 11/18/18 Type of Consult id Requesting Provider: WALDO CLEARY MD Date/Time of Note DATE: 11/22/18 TIME: 12:59 Exam/Review of Systems Exam Vitals Vital Signs Date Temp Pulse Resp B/P (MAP) Pulse Ox O2 O2 Flow FiO2 Time Delivery Rate 11/22/18 99.4 86 18 130/60 98 10:00 (83) 11/21/18 Room Air 18:00 Intake and Output 11/21/18 11/21/18 11/22/18 1414:59 22:59 06:59 IntakeIntake Total 220 ml 240 ml OutputOutput Total 700 ml BalanceBalance 220 ml -460 ml Results Result Diagram: 11/22/18 0454 11/22/18 0454 Results 24hrs Laboratory Tests Test 11/22/18 04:54 White Blood Count 6.4 Red Blood Count 3.48 L Hemoglobin 11.3 L Hematocrit 34.6 L Mean Corpuscular Volume 99.4 Mean Corpuscular Hemoglobin 32.5 Mean Corpuscular Hemoglobin Concent 32.7 Red Cell Distribution Width 13.2 Platelet Count 151 # Mean Platelet Volume 13.0 H Immature Granulocytes % 0.500 H Neutrophils % 76.6 Lymphocytes % 12.9 L Monocytes % 5.8 Eosinophils % 4.0 Basophils % 0.2 Nucleated Red Blood Cells % 0.0 Immature Granulocytes # 0.030 Neutrophils # 4.9 Lymphocytes # 0.8 Monocytes # 0.4 Eosinophils # 0.3 Basophils # 0.0 Nucleated Red Blood Cells # 0.0 Sodium Level 140 Potassium Level 3.5 Chloride Level 108 Carbon Dioxide Level 25 Anion Gap 7 Blood Urea Nitrogen 13 Creatinine 0.70 Est Glomerular Filtrat Rate mL/min Glucose Level 87 Calcium Level 8.7 Phosphorus Level 3.3 Magnesium Level 2.0 Medications Medication Current Medications IV Flush (NS 3 ml) 3 ml PER PROTOCOL IV ; Start 11/14/18 at 00:00 Ondansetron HCl (Zofran Inj) 4 mg Q6H PRN IV NAUSEA/VOMITING; Start 11/14/18 at 00:00 Acetaminophen (Tylenol Tab) 650 mg Q6H PRN PO .PAIN 1-3 OR TEMP Last administered on 11/21/18 21:04; Admin Dose 650 MG; Start 11/14/18 at 00:00 Morphine Sulfate (morphine) 2 mg Q4H PRN IV .PAIN 7-10 Last administered on 11/19/18 06:22; Admin Dose 2 MG; Start 11/14/18 at 00:00 Enoxaparin Sodium (Lovenox) 30 mg DAILY SC Last administered on 11/16/18 08:55; Admin Dose 30 MG; Start 11/14/18 at 09:00; Status Hold Ceftriaxone Sodium 50 ml @ 100 mls/hr Q24H IVPB Last administered on 11/21/18 13:58; Admin Dose 100 MLS/HR; Start 11/14/18 at 13:30 Acetaminophen (Tylenol Supp) 650 mg Q6H PRN [place] ELEVATED TEMPERATURE Last administered on 11/14/18 23:33; Admin Dose 650 MG; Start 11/14/18 at 21:30 Clonidine (Catapres) 0.1 mg Q6H PRN PO PRN SBP > 160; Start 11/15/18 at 00:00 Hydralazine HCl (Apresoline) 25 mg Q6 PRN PO PRN SBP > 160 Last administered on 11/19/18 21:38; Admin Dose 25 MG; Start 11/15/18 at 00:00 Famotidine (Pepcid) 20 mg DAILY PO Last administered on 4/19/19at 09:52; Admin Dose 20 MG; Start 11/19/18 at 09:00 Sodium Phosphate (Neutra-Phos) 250 mg BID PO Last administered on 11/22/18at 09: 55; Admin Dose 250 MG; Start 11/21/18 at 09:00 Ascorbic Acid (Vitamin C) 500 mg DAILY PO ; Start 11/23/18 at 09:00 Zinc Sulfate (Zinc Sulfate) 220 mg DAILY PO ; Start 11/23/18 at 09:00 Multivitamins Therapeutic (Theragran) 1 tab DAILY PO ; Start 11/23/18 at 09:00 SALMA HOOKER NP Nov 22, 2018 13:00
[2018-11-22] MEDS: CEFTRIAXONE 1 GM/50 ML (PMX) 50 ML IVPB SCH (13:40)
[2018-11-22] MEDS ORDERED: VANCOMYCIN IV PER PHARMACY XX SCH (18:30)
[2018-11-22] MEDS: ACETAMINOPHEN 325 MG TAB PO PRN (18:49)
[2018-11-22] MEDS: LORATADINE 10 MG TAB PO SCH (21:27)
[2018-11-22] MEDS: PIPER-TAZO 3.375 GM IV (PMX) 100 ML IVPB SCH (21:28)
[2018-11-22] MEDS ORDERED: VANCOMYCIN HCL 1.5 GM in SOD CHLORIDE 0.9% 250 ML IVPB SCH (22:30)
[2018-11-22] MEDS: FLUOCINONIDE 0.05% 15 GM CR TOP SCH (23:36)
[2018-11-23] VITALS (7 sets, daily range): BP systolic 107–131; BP diastolic 51–71; PULSE 61–96; RESP 16–20
[2018-11-23] MEDS: PIPER-TAZO 3.375 GM IV (PMX) 100 ML IVPB SCH (05:40)
--- NOTE | 2018-11-23 12:24 | CONS ---
Assessment/Plan Assessment/Plan Assessment/Plan (Daily) # Possible drug allergy reaction - antibiotics changed per ID - continue to monitor #Thrombocytopenia- Platelets - 177 today -platelets are improving and are now stable and> 100K -this may sepsis related or 2/2 to her antibiotics. - DIC unlikely given the normal fibrinogen -TTP unlikely given normal LDH -would not transfuse platelets at this time unless platelet count is < 20K - abdominal ultrasound demonstrates fatty liver -HIV hepatitis are negative #Urosepsis - per ID -continue antibiotics #ARF -management per nephrology -CR within normal- 0.82 today #hypernatremia-improved -Na 140 today Patient seen in collaboration with Dr Herndon/staff Consultation Date/Type/Reason Admit Date/Time Nov 13, 2018 at 23:15 Initial Consult Date 11/18/18 Type of Consult ONCOLOGY Reason for Consultation THROMBOCYTOPENIA Requesting Provider: WALDO CLEARY MD Date/Time of Note DATE: 11/23/18 TIME: 12:24 24 HR Interval Summary Free Text/Dictation - resting in bed - developed possible drug reaction today - skin rash on abdomen/back; antibiotics changed per ID - dw staff Detailed Summary Eyes: no complaints ENT: no complaints Respiratory: no complaints Cardiovascular: no complaints Gastrointestinal: no complaints Genitourinary: no complaints Musculoskeletal: other (general weakness) Skin: rash Neurologic: no complaints Endocrine: no complaints Lymphatic: no complaints Exam/Review of Systems Exam Vitals Vital Signs Date Temp Pulse Resp B/P (MAP) Pulse Ox O2 O2 Flow FiO2 Time Delivery Rate 11/23/18 98.6 70 16 125/58 98 07:44 (80) 11/21/18 Room Air 18:00 Intake and Output 11/22/18 11/22/18 11/23/18 1515:00 23:00 07:00 IntakeIntake Total 50 ml 340 ml 350 ml OutputOutput Total 300 ml 450 ml 300 ml BalanceBalance -250 ml -110 ml 50 ml Constitutional: alert, well developed Psych: nl mood/affect Head: atraumatic Eyes: nl lids, nl sclera ENMT: nl external ears & nose Neck: non-tender Respiratory: diminished breath sounds (at bases bilaterally) Cardiovascular: nl pulses, other (s1s2) Gastrointestinal: soft, non-tender Musculoskeletal: muscle weakness Extremities: normal pulses Neurological: nl speech, other (alert/rresponsive) Skin: rash or lesions (? drug allergic reaction - rashes on back/adomen) Lymph: nontender Results Result Diagram: 11/23/18 0434 11/23/18 0434 Results 24hrs Laboratory Tests Test 11/23/18 04:34 White Blood Count 7.5 Red Blood Count 3.47 L Hemoglobin 11.2 L Hematocrit 34.5 L Mean Corpuscular Volume 99.4 Mean Corpuscular Hemoglobin 32.3 Mean Corpuscular Hemoglobin Concent 32.5 Red Cell Distribution Width 13.6 Platelet Count 177 Mean Platelet Volume 12.4 H Immature Granulocytes % 0.400 Neutrophils % 85.6 H Lymphocytes % 7.5 L Monocytes % 3.2 Eosinophils % 3.2 Basophils % 0.1 Nucleated Red Blood Cells % 0.0 Immature Granulocytes # 0.030 Neutrophils # 6.4 Lymphocytes # 0.6 L Monocytes # 0.2 L Eosinophils # 0.2 Basophils # 0.0 Nucleated Red Blood Cells # 0.0 Sodium Level 140 Potassium Level 3.5 Chloride Level 110 Carbon Dioxide Level 24 Anion Gap 6 Blood Urea Nitrogen 12 Creatinine 0.82 Est Glomerular Filtrat Rate mL/min Glucose Level 65 #L Calcium Level 8.6 Medications Medication Current Medications IV Flush (NS 3 ml) 3 ml PER PROTOCOL IV ; Start 11/14/18 at 00:00 Ondansetron HCl (Zofran Inj) 4 mg Q6H PRN IV NAUSEA/VOMITING; Start 11/14/18 at 00:00 Acetaminophen (Tylenol Tab) 650 mg Q6H PRN PO .PAIN 1-3 OR TEMP Last administered on 11/22/18at 18:49; Admin Dose 650 MG; Start 11/14/18 at 00:00 Morphine Sulfate (morphine) 2 mg Q4H PRN IV .PAIN 7-10 Last administered on 11/19/18at 06:22; Admin Dose 2 MG; Start 11/14/18 at 00:00 Enoxaparin Sodium (Lovenox) 30 mg DAILY SC Last administered on 11/16/18at 08:55; Admin Dose 30 MG; Start 11/14/18 at 09:00; Status Hold Acetaminophen (Tylenol Supp) 650 mg Q6H PRN [place] ELEVATED TEMPERATURE Last administered on 11/14/18at 23:33; Admin Dose 650 MG; Start 11/14/18 at 21:30 Clonidine (Catapres) 0.1 mg Q6H PRN PO PRN SBP > 160; Start 11/15/18 at 00:00 Hydralazine HCl (Apresoline) 25 mg Q6 PRN PO PRN SBP > 160 Last administered on 11/19/18at 21:38; Admin Dose 25 MG; Start 11/15/18 at 00:00 Famotidine (Pepcid) 20 mg DAILY PO Last administered on 11/22/18 09:52; Admin Dose 20 MG; Start 11/19/18 at 09:00 Sodium Phosphate (Neutra-Phos) 250 mg BID PO Last administered on 11/22/18 21:27; Admin Dose 250 MG; Start 11/21/18 at 09:00 Ascorbic Acid (Vitamin C) 500 mg DAILY PO ; Start 11/23/18 at 09:00 Zinc Sulfate (Zinc Sulfate) 220 mg DAILY PO ; Start 11/23/18 at 09:00 Multivitamins Therapeutic (Theragran) 1 tab DAILY PO ; Start 11/23/18 at 09:00 Vancomycin HCl (Vanco Iv Per Pharmacy) VANCOMYCIN PER PHARMACY PER PROTOCOL XX ; Start 11/22/18 at 18:30 Loratadine (Claritin) 10 mg DAILY PO Last administered on 11/22/18 21:27; Admin Dose 10 MG; Start 11/22/18 at 20:00 Fluocinonide (Lidex 0.05% Cr) 1 applic BID TOP Last administered on 11/22/18at 23:36; Admin Dose 1 APPLIC; Start 11/22/18 at 21:00 Piperacillin Sod/ Tazobactam Sod 100 ml @ 200 mls/hr Q8 IVPB Last administered on 11/23/18 05:40; Admin Dose 200 MLS/HR; Start 11/22/18 at 22:00 Vancomycin HCl 1.25 gm/Sodium Chloride 250 ml @ 83.333 mls/ hr Q24H IVPB ; Start 11/23/18 at 22:00 JASEN SOTOMAYOR Nov 23, 2018 12:24
[2018-11-23] MEDS: ZINC SULFATE 220 MG CAP PO SCH (13:05)
[2018-11-23] MEDS: MULTIVITAMINS THERAPEUTIC TAB PO SCH (13:05)
[2018-11-23] MEDS: ASCORBIC ACID 500 MG TAB PO SCH (13:05)
[2018-11-23] MEDS: NEUTRA-PHOS 250 MG PACKET PO SCH ×2 (13:06→21:29)
[2018-11-23] MEDS: LORATADINE 10 MG TAB PO SCH ×2 (13:06→14:54)
[2018-11-23] MEDS: FAMOTIDINE 20 MG TAB PO SCH (13:06)
[2018-11-23] MEDS: FLUOCINONIDE 0.05% 15 GM CR TOP SCH ×2 (13:06→21:29)
--- NOTE | 2018-11-23 13:22 | CONS ---
Assessment/Plan Assessment/Plan Hospital Course (Demo Recall) Patient spiked fever last night with a T-max of 102.1 she had a low-grade fever this morning of 99.6. She is awake very confused and noncommunicative. In no distress. WBC 7.5 platelets 177 neutrophils 85.6 BUN 12 creatinine 0.82 Chest x-ray done yesterday revealed bilateral chronic lung changes. Antimicrobials: Vancomycin, Zosyn Microbiology: Urine culture on admission grew Proteus mirabilis, blood culture growing alphahemolytic strep species, repeat blood cultures negative. Allergy: Penicillin Indwelling: Jacobs catheter Physical examination: Chronically ill-appearing elderly woman who looks comfortable. Head atraumatic normocephalic sclera nonicteric. Bugle mucosa dry. Neck is supple, chest rise symmetrical, breath sounds diminished bases. Heart: S1-S2. Abdomen soft bowel sounds present. Extremities without cyanosis. Assessment: 1. Sepsis, present on admission 2. Strep bacteremia likely secondary to pneumonia 3. Dysphasia 4. Acute on chronic encephalopathy 5. Multiple chronic wounds Plan: Clinically stable, were going to change Zosyn to meropenem, continue vancomycin, follow cultures and chest x-ray in a.m. Consultation Date/Type/Reason Admit Date/Time Nov 13, 2018 at 23:15 Initial Consult Date 11/18/18 Type of Consult id Requesting Provider: WALDO CLEARY MD Date/Time of Note DATE: 11/23/18 TIME: 13:21 Exam/Review of Systems Exam Vitals Vital Signs Date Temp Pulse Resp B/P (MAP) Pulse Ox O2 O2 Flow FiO2 Time Delivery Rate 11/23/18 98.6 70 16 125/58 98 07:44 (80) 11/21/18 Room Air 18:00 Intake and Output 11/22/18 11/22/18 11/23/18 1515:00 23:00 07:00 IntakeIntake Total 50 ml 340 ml 350 ml OutputOutput Total 300 ml 450 ml 300 ml BalanceBalance -250 ml -110 ml 50 ml Results Result Diagram: 11/23/18 0434 11/23/18 0434 Results 24hrs Laboratory Tests Test 11/23/18 04:34 White Blood Count 7.5 Red Blood Count 3.47 L Hemoglobin 11.2 L Hematocrit 34.5 L Mean Corpuscular Volume 99.4 Mean Corpuscular Hemoglobin 32.3 Mean Corpuscular Hemoglobin Concent 32.5 Red Cell Distribution Width 13.6 Platelet Count 177 Mean Platelet Volume 12.4 H Immature Granulocytes % 0.400 Neutrophils % 85.6 H Lymphocytes % 7.5 L Monocytes % 3.2 Eosinophils % 3.2 Basophils % 0.1 Nucleated Red Blood Cells % 0.0 Immature Granulocytes # 0.030 Neutrophils # 6.4 Lymphocytes # 0.6 L Monocytes # 0.2 L Eosinophils # 0.2 Basophils # 0.0 Nucleated Red Blood Cells # 0.0 Sodium Level 140 Potassium Level 3.5 Chloride Level 110 Carbon Dioxide Level 24 Anion Gap 6 Blood Urea Nitrogen 12 Creatinine 0.82 Est Glomerular Filtrat Rate mL/min Glucose Level 65 #L Calcium Level 8.6 Medications Medication Current Medications IV Flush (NS 3 ml) 3 ml PER PROTOCOL IV ; Start 11/14/18 at 00:00 Ondansetron HCl (Zofran Inj) 4 mg Q6H PRN IV NAUSEA/VOMITING; Start 11/14/18 at 00:00 Acetaminophen (Tylenol Tab) 650 mg Q6H PRN PO .PAIN 1-3 OR TEMP Last administered on 11/22/18at 18:49; Admin Dose 650 MG; Start 11/14/18 at 00:00 Morphine Sulfate (morphine) 2 mg Q4H PRN IV .PAIN 7-10 Last administered on 11/19/18at 06:22; Admin Dose 2 MG; Start 11/14/18 at 00:00 Enoxaparin Sodium (Lovenox) 30 mg DAILY SC Last administered on 11/16/18at 08:55; Admin Dose 30 MG; Start 11/14/18 at 09:00; Status Hold Acetaminophen (Tylenol Supp) 650 mg Q6H PRN [place] ELEVATED TEMPERATURE Last administered on 11/14/18at 23:33; Admin Dose 650 MG; Start 11/14/18 at 21:30 Clonidine (Catapres) 0.1 mg Q6H PRN PO PRN SBP > 160; Start 11/15/18 at 00:00 Hydralazine HCl (Apresoline) 25 mg Q6 PRN PO PRN SBP > 160 Last administered on 11/19/18at 21:38; Admin Dose 25 MG; Start 11/15/18 at 00:00 Famotidine (Pepcid) 20 mg DAILY PO Last administered on 11/23/18 13:06; Admin Dose 20 MG; Start 11/19/18 at 09:00 Sodium Phosphate (Neutra-Phos) 250 mg BID PO Last administered on 11/23/18 13:06; Admin Dose 250 MG; Start 11/21/18 at 09:00 Ascorbic Acid (Vitamin C) 500 mg DAILY PO Last administered on 11/23/18 13:05; Admin Dose 500 MG; Start 11/23/18 at 09:00 Zinc Sulfate (Zinc Sulfate) 220 mg DAILY PO Last administered on 11/23/18 13:05; Admin Dose 220 MG; Start 11/23/18 at 09:00 Multivitamins Therapeutic (Theragran) 1 tab DAILY PO Last administered on 11/23/18 13:05; Admin Dose 1 TAB; Start 11/23/18 at 09:00 Vancomycin HCl (Vanco Iv Per Pharmacy) VANCOMYCIN PER PHARMACY PER PROTOCOL XX ; Start 11/22/18 at 18:30 Loratadine (Claritin) 10 mg DAILY PO Last administered on 11/23/18 13:06; Admin Dose 10 MG; Start 11/22/18 at 20:00 Fluocinonide (Lidex 0.05% Cr) 1 applic BID TOP Last administered on 11/23/18 13:06; Admin Dose 1 APPLIC; Start 11/22/18 at 21:00 Piperacillin Sod/ Tazobactam Sod 100 ml @ 200 mls/hr Q8 IVPB Last administered on 11/23/18 05:40; Admin Dose 200 MLS/HR; Start 11/22/18 at 22:00 Vancomycin HCl 1.25 gm/Sodium Chloride 250 ml @ 83.333 mls/ hr Q24H IVPB ; Start 11/23/18 at 22:00 SALMA HOOKER NP Nov 23, 2018 13:22
--- NOTE | 2018-11-23 13:43 | PN ---
Date/Time of Note Date/Time of Note DATE: 11/23/18 TIME: 13:42 Assessment/Plan VTE Prophylaxis Risk [place] [facility] [place] risk: 7 SCD applied [place]from [facility] [place] No SCD contraindicated: other Pharmacological prophylaxis: LMWH Lines/Catheters IV Catheter Type (from [facility]): [place] Urinary Cath still in place: Yes Reason Cath still needed: skin wounds contaminated by urine Assessment/Plan Hospital Course -Sepsis secondary to urinary tract infection, resolving continue antibiotics. Dr. Griffiths is following in infection disease consultation. -Alpha hemolytic strep bacteremia, 2D echo with no vegetation, continue Rocephin for 2 weeks per ID recommendations. -Proteus M UTI, continue Rocephin. -Acute metabolic encephalopathy. No evidence of acute intracranial hemorrhage, infarcts, or acute intracranial pathology per CT brain. -Cardiomegaly with ejection fraction of 60% -Mitral stenosis -Hypernatremia, resolved. Dr. Edwards is following in nephrology consultation. -Acute kidney injury -Thrombocytopenia, resolving. Dr. Herndon is following in hematology consultation. -Dysphagia, continue pureed diet, aspiration precaution. -Multiple stage I pressure ulcers, air mattress, off loading, optimize nutrition. Result Diagram: 11/23/18 0434 11/23/18 0434 Results 24hrs Laboratory Tests Test 11/23/18 04:34 White Blood Count 7.5 Red Blood Count 3.47 L Hemoglobin 11.2 L Hematocrit 34.5 L Mean Corpuscular Volume 99.4 Mean Corpuscular Hemoglobin 32.3 Mean Corpuscular Hemoglobin Concent 32.5 Red Cell Distribution Width 13.6 Platelet Count 177 Mean Platelet Volume 12.4 H Immature Granulocytes % 0.400 Neutrophils % 85.6 H Lymphocytes % 7.5 L Monocytes % 3.2 Eosinophils % 3.2 Basophils % 0.1 Nucleated Red Blood Cells % 0.0 Immature Granulocytes # 0.030 Neutrophils # 6.4 Lymphocytes # 0.6 L Monocytes # 0.2 L Eosinophils # 0.2 Basophils # 0.0 Nucleated Red Blood Cells # 0.0 Sodium Level 140 Potassium Level 3.5 Chloride Level 110 Carbon Dioxide Level 24 Anion Gap 6 Blood Urea Nitrogen 12 Creatinine 0.82 Est Glomerular Filtrat Rate mL/min Glucose Level 65 #L Calcium Level 8.6 Subjective 24 Hr Interval Summary Free Text/Dictation Patient has no complaints Exam/Review of Systems Exam Vitals Vital Signs Date Temp Pulse Resp B/P (MAP) Pulse Ox O2 O2 Flow FiO2 Time Delivery Rate 11/23/18 98.6 70 16 125/58 98 07:44 (80) 11/21/18 Room Air 18:00 Intake and Output 11/22/18 11/22/18 11/23/18 1515:00 23:00 07:00 IntakeIntake Total 50 ml 340 ml 350 ml OutputOutput Total 300 ml 450 ml 300 ml BalanceBalance -250 ml -110 ml 50 ml Constitutional: well developed Head: normocephalic, atraumatic Neck: supple Respiratory: diminished breath sounds Cardiovascular: regular rate and rhythm Gastrointestinal: soft, non-tender Extremities: normal pulses Results Results 24hrs Laboratory Tests Test 11/23/18 04:34 White Blood Count 7.5 Red Blood Count 3.47 L Hemoglobin 11.2 L Hematocrit 34.5 L Mean Corpuscular Volume 99.4 Mean Corpuscular Hemoglobin 32.3 Mean Corpuscular Hemoglobin Concent 32.5 Red Cell Distribution Width 13.6 Platelet Count 177 Mean Platelet Volume 12.4 H Immature Granulocytes % 0.400 Neutrophils % 85.6 H Lymphocytes % 7.5 L Monocytes % 3.2 Eosinophils % 3.2 Basophils % 0.1 Nucleated Red Blood Cells % 0.0 Immature Granulocytes # 0.030 Neutrophils # 6.4 Lymphocytes # 0.6 L Monocytes # 0.2 L Eosinophils # 0.2 Basophils # 0.0 Nucleated Red Blood Cells # 0.0 Sodium Level 140 Potassium Level 3.5 Chloride Level 110 Carbon Dioxide Level 24 Anion Gap 6 Blood Urea Nitrogen 12 Creatinine 0.82 Est Glomerular Filtrat Rate mL/min Glucose Level 65 #L Calcium Level 8.6 Medications Medication Current Medications IV Flush (NS 3 ml) 3 ml PER PROTOCOL IV ; Start 11/14/18 at 00:00 Ondansetron HCl (Zofran Inj) 4 mg Q6H PRN IV NAUSEA/VOMITING; Start 11/14/18 at 00:00 Acetaminophen (Tylenol Tab) 650 mg Q6H PRN PO .PAIN 1-3 OR TEMP Last administered on 11/22/18at 18:49; Admin Dose 650 MG; Start 11/14/18 at 00:00 Morphine Sulfate (morphine) 2 mg Q4H PRN IV .PAIN 7-10 Last administered on 11/19/18 06:22; Admin Dose 2 MG; Start 11/14/18 at 00:00 Enoxaparin Sodium (Lovenox) 30 mg DAILY SC Last administered on 11/16/18 08:55; Admin Dose 30 MG; Start 11/14/18 at 09:00; Status Hold Acetaminophen (Tylenol Supp) 650 mg Q6H PRN [place] ELEVATED TEMPERATURE Last administered on 11/14/18 23:33; Admin Dose 650 MG; Start 11/14/18 at 21:30 Clonidine (Catapres) 0.1 mg Q6H PRN PO PRN SBP > 160; Start 11/15/18 at 00:00 Hydralazine HCl (Apresoline) 25 mg Q6 PRN PO PRN SBP > 160 Last administered on 11/19/18 21:38; Admin Dose 25 MG; Start 11/15/18 at 00:00 Famotidine (Pepcid) 20 mg DAILY PO Last administered on 11/23/18 13:06; Admin Dose 20 MG; Start 11/19/18 at 09:00 Sodium Phosphate (Neutra-Phos) 250 mg BID PO Last administered on 11/23/18 13:06; Admin Dose 250 MG; Start 11/21/18 at 09:00 Ascorbic Acid (Vitamin C) 500 mg DAILY PO Last administered on 11/23/18 13:05; Admin Dose 500 MG; Start 11/23/18 at 09:00 Zinc Sulfate (Zinc Sulfate) 220 mg DAILY PO Last administered on 11/23/18 13:05; Admin Dose 220 MG; Start 11/23/18 at 09:00 Multivitamins Therapeutic (Theragran) 1 tab DAILY PO Last administered on 11/23/18 13:05; Admin Dose 1 TAB; Start 11/23/18 at 09:00 Vancomycin HCl (Vanco Iv Per Pharmacy) VANCOMYCIN PER PHARMACY PER PROTOCOL XX ; Start 11/22/18 at 18:30 Loratadine (Claritin) 10 mg DAILY PO Last administered on 11/23/18 13:06; Admin Dose 10 MG; Start 11/22/18 at 20:00 Fluocinonide (Lidex 0.05% Cr) 1 applic BID TOP Last administered on 11/23/18 13:06; Admin Dose 1 APPLIC; Start 11/22/18 at 21:00 Vancomycin HCl 1.25 gm/Sodium Chloride 250 ml @ 83.333 mls/ hr Q24H IVPB ; Start 11/23/18 at 22:00 Meropenem/Sodium Chloride 50 ml @ 100 mls/hr Q12 IVPB ; Start 11/23/18 at 21:00 Loratadine (Claritin) 10 mg DAILY PO ; Start 11/23/18 at 13:30 CARLOS A LLANES Nov 23, 2018 13:43
[2018-11-23] MEDS: MEROPENEM 1 GM/50ML(PMX) 50 ML IVPB SCH (21:29)
[2018-11-23] MEDS: VANCOMYCIN HCL 1.25 GM in SOD CHLORIDE 0.9% 250 ML IVPB SCH (22:42)
[2018-11-24 02:50] VITALS: BP 107/65; PULSE 95; RESP 18
[2018-11-24 07:45] VITALS: BP 115/62; PULSE 88; RESP 18
[2018-11-24] MEDS: LORATADINE 10 MG TAB PO SCH ×2 (09:00→09:23)
[2018-11-24] MEDS: ASCORBIC ACID 500 MG TAB PO SCH (09:23)
[2018-11-24] MEDS: MULTIVITAMINS THERAPEUTIC TAB PO SCH (09:23)
[2018-11-24] MEDS: NEUTRA-PHOS 250 MG PACKET PO SCH ×2 (09:23→20:48)
[2018-11-24] MEDS: FAMOTIDINE 20 MG TAB PO SCH (09:23)
[2018-11-24] MEDS: MEROPENEM 1 GM/50ML(PMX) 50 ML IVPB SCH (09:23)
[2018-11-24] MEDS: FLUOCINONIDE 0.05% 15 GM CR TOP SCH ×2 (09:24→20:48)
[2018-11-24] MEDS: ZINC SULFATE 220 MG CAP PO SCH (09:24)
--- NOTE | 2018-11-24 12:56 | CONS ---
Assessment/Plan Assessment/Plan Hospital Course (Demo Recall) No acute changes, looks comfortable, rash is worse. no fevers Chest x-ray revealed bilateral chronic lung changes. Antimicrobials: Vancomycin, Merrem Microbiology: Urine culture on admission grew Proteus mirabilis, blood culture growing alphahemolytic strep species, repeat blood cultures negative. Allergy: Penicillin Indwelling: Jacobs catheter Physical examination: Chronically ill-appearing elderly woman who looks comfortable. Head atraumatic normocephalic sclera nonicteric. Bugle mucosa dry. Neck is supple, chest rise symmetrical, breath sounds diminished bases. Heart: S1-S2. Abdomen soft bowel sounds present. Extremities without cyanosis. Assessment: 1. Sepsis, present on admission 2. Strep bacteremia likely secondary to pneumonia 3. Dysphasia 4. Acute on chronic encephalopathy 5. Multiple chronic wounds 6. Rash cw allergic, s/p Rocephin and Zosyn Plan: Clinically stable, repeat cx's neg, dc Merrem, continue vancomycin and antihistamines Consultation Date/Type/Reason Admit Date/Time Nov 13, 2018 at 23:15 Initial Consult Date 11/18/18 Type of Consult id Requesting Provider: WALDO CLEARY MD Date/Time of Note DATE: 11/24/18 TIME: 12:54 Exam/Review of Systems Exam Vitals Vital Signs Date Temp Pulse Resp B/P (MAP) Pulse Ox O2 O2 Flow FiO2 Time Delivery Rate 11/24/18 98.9 88 18 115/62 93 Room Air 07:45 (79) Intake and Output 11/23/18 11/23/18 11/24/18 1515:00 23:00 07:00 IntakeIntake Total 880 ml 530 ml 250 ml OutputOutput Total 400 ml BalanceBalance 880 ml 130 ml 250 ml Results Result Diagram: 11/23/18 0434 11/23/18 0434 Medications Medication Current Medications IV Flush (NS 3 ml) 3 ml PER PROTOCOL IV ; Start 11/14/18 at 00:00 Ondansetron HCl (Zofran Inj) 4 mg Q6H PRN IV NAUSEA/VOMITING; Start 11/14/18 at 00:00 Acetaminophen (Tylenol Tab) 650 mg Q6H PRN PO .PAIN 1-3 OR TEMP Last administered on 11/22/18at 18:49; Admin Dose 650 MG; Start 11/14/18 at 00:00 Morphine Sulfate (morphine) 2 mg Q4H PRN IV .PAIN 7-10 Last administered on 11/19/18 06:22; Admin Dose 2 MG; Start 11/14/18 at 00:00 Enoxaparin Sodium (Lovenox) 30 mg DAILY SC Last administered on 11/16/18 08:55; Admin Dose 30 MG; Start 11/14/18 at 09:00; Status Hold Acetaminophen (Tylenol Supp) 650 mg Q6H PRN [place] ELEVATED TEMPERATURE Last administered on 11/14/18 23:33; Admin Dose 650 MG; Start 11/14/18 at 21:30 Clonidine (Catapres) 0.1 mg Q6H PRN PO PRN SBP > 160; Start 11/15/18 at 00:00 Hydralazine HCl (Apresoline) 25 mg Q6 PRN PO PRN SBP > 160 Last administered on 11/19/18 21:38; Admin Dose 25 MG; Start 11/15/18 at 00:00 Famotidine (Pepcid) 20 mg DAILY PO Last administered on 11/24/18 09:23; Admin Dose 20 MG; Start 11/19/18 at 09:00 Sodium Phosphate (Neutra-Phos) 250 mg BID PO Last administered on 11/24/18 09:23; Admin Dose 250 MG; Start 11/21/18 at 09:00 Ascorbic Acid (Vitamin C) 500 mg DAILY PO Last administered on 11/24/18 09:23; Admin Dose 500 MG; Start 11/23/18 at 09:00 Zinc Sulfate (Zinc Sulfate) 220 mg DAILY PO Last administered on 11/24/18 09:24; Admin Dose 220 MG; Start 11/23/18 at 09:00 Multivitamins Therapeutic (Theragran) 1 tab DAILY PO Last administered on 11/24/18 09:23; Admin Dose 1 TAB; Start 11/23/18 at 09:00 Vancomycin HCl (Vanco Iv Per Pharmacy) VANCOMYCIN PER PHARMACY PER PROTOCOL XX ; Start 11/22/18 at 18:30 Loratadine (Claritin) 10 mg DAILY PO Last administered on 11/23/18 13:06; Admin Dose 10 MG; Start 11/22/18 at 20:00 Fluocinonide (Lidex 0.05% Cr) 1 applic BID TOP Last administered on 11/24/18 09:24; Admin Dose 1 APPLIC; Start 11/22/18 at 21:00 Vancomycin HCl 1.25 gm/Sodium Chloride 250 ml @ 83.333 mls/ hr Q24H IVPB Last administered on 11/23/18 22:42; Admin Dose 83.333 MLS/HR; Start 11/23/18 at 22:00 Meropenem/Sodium Chloride 50 ml @ 100 mls/hr Q12 IVPB Last administered on 11/24/18 09:23; Admin Dose 100 MLS/HR; Start 11/23/18 at 21:00 Loratadine (Claritin) 10 mg DAILY PO Last administered on 11/24/18 09:23; Admin Dose 10 MG; Start 11/23/18 at 13:30 SALMA HOOKER NP Nov 24, 2018 12:56
--- NOTE | 2018-11-24 13:46 | PN ---
Date/Time of Note Date/Time of Note DATE: 11/24/18 TIME: 13:46 Assessment/Plan VTE Prophylaxis Risk score (from Ns)>0 risk: 5 SCD applied (from Ns): Yes Pharmacological prophylaxis: LMWH Lines/Catheters IV Catheter Type (from Nrsg): Saline Lock Urinary Cath still in place: Yes Reason Cath still needed: skin wounds contaminated by urine Assessment/Plan Hospital Course -Sepsis secondary to urinary tract infection, resolving continue antibiotics. Dr. Griffiths is following in infection disease consultation. -Alpha hemolytic strep bacteremia, 2D echo with no vegetation, continue Rocephin for 2 weeks per ID recommendations. -Proteus M UTI, continue Rocephin. -Acute metabolic encephalopathy. No evidence of acute intracranial hemorrhage, infarcts, or acute intracranial pathology per CT brain. -Cardiomegaly with ejection fraction of 60% -Mitral stenosis -Hypernatremia, resolved. Dr. Edwards is following in nephrology consultation. -Acute kidney injury -Thrombocytopenia, resolving. Dr. Herndon is following in hematology consultation. -Dysphagia, continue pureed diet, aspiration precaution. -Multiple stage I pressure ulcers, air mattress, off loading, optimize nutrition. Result Diagram: 11/23/18 0434 11/23/18 0434 Subjective 24 Hr Interval Summary Free Text/Dictation Patient has no complaints Exam/Review of Systems Exam Vitals Vital Signs Date Temp Pulse Resp B/P (MAP) Pulse Ox O2 O2 Flow FiO2 Time Delivery Rate 11/24/18 98.9 88 18 115/62 93 Room Air 07:45 (79) Intake and Output 11/23/18 11/23/18 11/24/18 1515:00 23:00 07:00 IntakeIntake Total 880 ml 530 ml 250 ml OutputOutput Total 400 ml BalanceBalance 880 ml 130 ml 250 ml Constitutional: well developed Head: normocephalic, atraumatic Neck: supple Respiratory: diminished breath sounds Cardiovascular: regular rate and rhythm Gastrointestinal: soft, non-tender Extremities: normal pulses Medications Medication Current Medications IV Flush (NS 3 ml) 3 ml PER PROTOCOL IV ; Start 11/14/18 at 00:00 Ondansetron HCl (Zofran Inj) 4 mg Q6H PRN IV NAUSEA/VOMITING; Start 11/14/18 at 00:00 Acetaminophen (Tylenol Tab) 650 mg Q6H PRN PO .PAIN 1-3 OR TEMP Last administered on 11/22/18 18:49; Admin Dose 650 MG; Start 11/14/18 at 00:00 Morphine Sulfate (morphine) 2 mg Q4H PRN IV .PAIN 7-10 Last administered on 11/19/18 06:22; Admin Dose 2 MG; Start 11/14/18 at 00:00 Enoxaparin Sodium (Lovenox) 30 mg DAILY SC Last administered on 11/16/18 08:55; Admin Dose 30 MG; Start 11/14/18 at 09:00; Status Hold Acetaminophen (Tylenol Supp) 650 mg Q6H PRN [place] ELEVATED TEMPERATURE Last administered on 11/14/18 23:33; Admin Dose 650 MG; Start 11/14/18 at 21:30 Clonidine (Catapres) 0.1 mg Q6H PRN PO PRN SBP > 160; Start 11/15/18 at 00:00 Hydralazine HCl (Apresoline) 25 mg Q6 PRN PO PRN SBP > 160 Last administered on 11/19/18 21:38; Admin Dose 25 MG; Start 11/15/18 at 00:00 Famotidine (Pepcid) 20 mg DAILY PO Last administered on 11/24/18 09:23; Admin Dose 20 MG; Start 11/19/18 at 09:00 Sodium Phosphate (Neutra-Phos) 250 mg BID PO Last administered on 11/24/18 09:23; Admin Dose 250 MG; Start 11/21/18 at 09:00 Ascorbic Acid (Vitamin C) 500 mg DAILY PO Last administered on 11/24/18 09:23; Admin Dose 500 MG; Start 11/23/18 at 09:00 Zinc Sulfate (Zinc Sulfate) 220 mg DAILY PO Last administered on 11/24/18 09:24; Admin Dose 220 MG; Start 11/23/18 at 09:00 Multivitamins Therapeutic (Theragran) 1 tab DAILY PO Last administered on 11/24/18 09:23; Admin Dose 1 TAB; Start 11/23/18 at 09:00 Vancomycin HCl (Vanco Iv Per Pharmacy) VANCOMYCIN PER PHARMACY PER PROTOCOL XX ; Start 11/22/18 at 18:30 Loratadine (Claritin) 10 mg DAILY PO Last administered on 11/23/18 13:06; Admin Dose 10 MG; Start 11/22/18 at 20:00 Fluocinonide (Lidex 0.05% Cr) 1 applic BID TOP Last administered on 11/24/18 09:24; Admin Dose 1 APPLIC; Start 11/22/18 at 21:00 Vancomycin HCl 1.25 gm/Sodium Chloride 250 ml @ 83.333 mls/ hr Q24H IVPB Last administered on 11/23/18 22:42; Admin Dose 83.333 MLS/HR; Start 11/23/18 at 22:00 Loratadine (Claritin) 10 mg DAILY PO Last administered on 11/24/18 09:23; Admin Dose 10 MG; Start 11/23/18 at 13:30 CARLOS A LLANES Nov 24, 2018 13:46
[2018-11-24 14:00] VITALS: BP 110/52; PULSE 80; RESP 20
--- NOTE | 2018-11-24 16:53 | CONS ---
Assessment/Plan Assessment/Plan Assessment/Plan (Daily) # Possible drug allergy reaction- general body rash-resolving - antibiotics changed per ID - continue to monitor #Thrombocytopenia- Platelets - 177 today -platelets are improving and are now stable and> 100K -this may sepsis related or 2/2 to her antibiotics. - DIC unlikely given the normal fibrinogen -TTP unlikely given normal LDH -would not transfuse platelets at this time unless platelet count is < 20K - abdominal ultrasound demonstrates fatty liver -HIV hepatitis are negative #Urosepsis - per ID -continue antibiotics #ARF -management per nephrology -CR within normal- 0.82 today #hypernatremia-improved -Na 140 today # Multiple decubs - per PMD Patient seen in collaboration with Dr Herndon/staff Consultation Date/Type/Reason Admit Date/Time Nov 13, 2018 at 23:15 Initial Consult Date 11/18/18 Type of Consult ONCOLOGY Reason for Consultation THROMBOCYTOPENIA Requesting Provider: WALDO CLEARY MD Date/Time of Note DATE: 11/24/18 TIME: 16:50 24 HR Interval Summary Free Text/Dictation - resting in bed; feel better - developed possible drug reaction today - skin rash on abdomen/back; antibiotics changed per ID - rashes resolving - dw staff Exam/Review of Systems Exam Vitals Vital Signs Date Temp Pulse Resp B/P (MAP) Pulse Ox O2 O2 Flow FiO2 Time Delivery Rate 11/24/18 98.0 80 20 110/52 92 Room Air 14:00 (71) Intake and Output 11/23/18 11/23/18 11/24/18 1515:00 23:00 07:00 IntakeIntake Total 880 ml 530 ml 250 ml OutputOutput Total 400 ml BalanceBalance 880 ml 130 ml 250 ml Constitutional: alert, well developed Psych: nl mood/affect Head: atraumatic Eyes: nl lids, nl sclera ENMT: nl external ears & nose Neck: non-tender Respiratory: clear to auscultation Cardiovascular: nl pulses, other (s1s2) Gastrointestinal: soft, non-tender Musculoskeletal: muscle weakness Extremities: normal pulses Neurological: nl speech (alert/responsive) Skin: other (deubs) Lymph: nontender Results Result Diagram: 11/23/18 0434 11/23/18 0434 Medications Medication Current Medications IV Flush (NS 3 ml) 3 ml PER PROTOCOL IV ; Start 11/14/18 at 00:00 Ondansetron HCl (Zofran Inj) 4 mg Q6H PRN IV NAUSEA/VOMITING; Start 11/14/18 at 00:00 Acetaminophen (Tylenol Tab) 650 mg Q6H PRN PO .PAIN 1-3 OR TEMP Last administered on 11/22/18 18:49; Admin Dose 650 MG; Start 11/14/18 at 00:00 Morphine Sulfate (morphine) 2 mg Q4H PRN IV .PAIN 7-10 Last administered on 11/19/18 06:22; Admin Dose 2 MG; Start 11/14/18 at 00:00 Enoxaparin Sodium (Lovenox) 30 mg DAILY SC Last administered on 11/16/18 08:55; Admin Dose 30 MG; Start 11/14/18 at 09:00; Status Hold Acetaminophen (Tylenol Supp) 650 mg Q6H PRN [place] ELEVATED TEMPERATURE Last a dministered on 11/14/18 23:33; Admin Dose 650 MG; Start 11/14/18 at 21:30 Clonidine (Catapres) 0.1 mg Q6H PRN PO PRN SBP > 160; Start 11/15/18 at 00:00 Hydralazine HCl (Apresoline) 25 mg Q6 PRN PO PRN SBP > 160 Last administered on 11/19/18 21:38; Admin Dose 25 MG; Start 11/15/18 at 00:00 Famotidine (Pepcid) 20 mg DAILY PO Last administered on 11/24/18 09:23; Admin Dose 20 MG; Start 11/19/18 at 09:00 Sodium Phosphate (Neutra-Phos) 250 mg BID PO Last administered on 11/24/18 09:23; Admin Dose 250 MG; Start 11/21/18 at 09:00 Ascorbic Acid (Vitamin C) 500 mg DAILY PO Last administered on 11/24/18 09:23; Admin Dose 500 MG; Start 11/23/18 at 09:00 Zinc Sulfate (Zinc Sulfate) 220 mg DAILY PO Last administered on 11/24/18 09:24; Admin Dose 220 MG; Start 11/23/18 at 09:00 Multivitamins Therapeutic (Theragran) 1 tab DAILY PO Last administered on 11/24/18 09:23; Admin Dose 1 TAB; Start 11/23/18 at 09:00 Vancomycin HCl (Vanco Iv Per Pharmacy) VANCOMYCIN PER PHARMACY PER PROTOCOL XX ; Start 11/22/18 at 18:30 Loratadine (Claritin) 10 mg DAILY PO Last administered on 11/23/18at 13:06; Admin Dose 10 MG; Start 11/22/18 at 20:00 Fluocinonide (Lidex 0.05% Cr) 1 applic BID TOP Last administered on 11/24/18at 09:24; Admin Dose 1 APPLIC; Start 11/22/18 at 21:00 Vancomycin HCl 1.25 gm/Sodium Chloride 250 ml @ 83.333 mls/ hr Q24H IVPB Last administered on 11/23/18 22:42; Admin Dose 83.333 MLS/HR; Start 11/23/18 at 22:00 Loratadine (Claritin) 10 mg DAILY PO Last administered on 11/24/18 09:23; Admin Dose 10 MG; Start 11/23/18 at 13:30 JASEN SOTOMAYOR Nov 24, 2018 16:53
[2018-11-24 19:52] VITALS: BP 122/55; PULSE 79; RESP 18
[2018-11-24] MEDS: VANCOMYCIN HCL 1.25 GM in SOD CHLORIDE 0.9% 250 ML IVPB SCH (22:02)
[2018-11-25 02:10] VITALS: BP 116/57; PULSE 74; RESP 18
[2018-11-25 07:31] VITALS: BP 119/59; PULSE 81; RESP 18
[2018-11-25] MEDS: NEUTRA-PHOS 250 MG PACKET PO SCH ×2 (08:39→21:09)
[2018-11-25] MEDS: LORATADINE 10 MG TAB PO SCH ×2 (08:39→08:40)
[2018-11-25] MEDS: ZINC SULFATE 220 MG CAP PO SCH (08:39)
[2018-11-25] MEDS: MULTIVITAMINS THERAPEUTIC TAB PO SCH (08:39)
[2018-11-25] MEDS: ASCORBIC ACID 500 MG TAB PO SCH (08:40)
[2018-11-25] MEDS: FAMOTIDINE 20 MG TAB PO SCH (08:40)
[2018-11-25] MEDS: FLUOCINONIDE 0.05% 15 GM CR TOP SCH ×2 (08:41→21:09)
--- NOTE | 2018-11-25 11:22 | CONS ---
Assessment/Plan Assessment/Plan Hospital Course (Demo Recall) #Thrombocytopenia -platelets are improving and are now stable and> 200K -this was likely 2/2 sepsis which has improved - DIC unlikely given the normal fibrinogen -TTP unlikely given normal LDH -would not transfuse platelets at this time unless platelet count is < 20K - abdominal ultrasound demonstrates fatty liver -HIV hepatitis are negative #Urosepsis -continue antibiotics. on vancomycin IV #ARF -management per nephrology. CR now normal #hypernatremia -improved -Na 144 Thank you for the opportunity to participate in this patients care A total of 40 minutes of face to face time was spent speaking with the patient, of which greater than 50% was spent in counseling and coordination of care and the detailed question and answer session. Consultation Date/Type/Reason Admit Date/Time Nov 13, 2018 at 23:15 Initial Consult Date 11/18/18 Type of Consult Hematology Reason for Consultation thrombocytopenia Requesting Provider: WALDO CLEARY MD Date/Time of Note DATE: 11/25/18 TIME: 11:19 24 HR Interval Summary Free Text/Dictation no acute overnight events Subjective hx not possible: pt non-verbal Exam/Review of Systems Exam Vitals Vital Signs Date Temp Pulse Resp B/P (MAP) Pulse Ox O2 O2 Flow FiO2 Time Delivery Rate 11/25/18 99.0 81 18 119/59 95 07:31 (79) 11/24/18 Room Air 14:00 Intake and Output 11/24/18 11/24/18 11/25/18 1515:00 23:00 07:00 IntakeIntake Total 290 ml 240 ml 490 ml OutputOutput Total 600 ml 500 ml 500 ml BalanceBalance -310 ml -260 ml -10 ml Constitutional: non-verbal Psych: confusion Head: normocephalic Eyes: nl conjunctiva ENMT: other (NGT in place) Neck: supple Respiratory: clear to auscultation Cardiovascular: regular rate and rhythm Gastrointestinal: soft Musculoskeletal: nl extremities to inspection Results Result Diagram: 11/25/18 0435 11/23/18 0434 Results 24hrs Laboratory Tests Test 11/25/18 04:35 White Blood Count 6.0 Red Blood Count 3.38 L Hemoglobin 10.9 L Hematocrit 33.6 L Mean Corpuscular Volume 99.4 Mean Corpuscular Hemoglobin 32.2 Mean Corpuscular Hemoglobin Concent 32.4 Red Cell Distribution Width 13.2 Platelet Count 209 Mean Platelet Volume 11.9 H Immature Granulocytes % 0.300 Neutrophils % 75.2 Lymphocytes % 14.9 L Monocytes % 5.0 Eosinophils % 4.3 Basophils % 0.3 Nucleated Red Blood Cells % 0.0 Immature Granulocytes # 0.020 Neutrophils # 4.5 Lymphocytes # 0.9 Monocytes # 0.3 Eosinophils # 0.3 Basophils # 0.0 Nucleated Red Blood Cells # 0.0 Medications Medication Current Medications IV Flush (NS 3 ml) 3 ml PER PROTOCOL IV ; Start 11/14/18 at 00:00 Ondansetron HCl (Zofran Inj) 4 mg Q6H PRN IV NAUSEA/VOMITING; Start 11/14/18 at 00:00 Acetaminophen (Tylenol Tab) 650 mg Q6H PRN PO .PAIN 1-3 OR TEMP Last administered on 11/22/18 18:49; Admin Dose 650 MG; Start 11/14/18 at 00:00 Morphine Sulfate (morphine) 2 mg Q4H PRN IV .PAIN 7-10 Last administered on 11/19/18 06:22; Admin Dose 2 MG; Start 11/14/18 at 00:00 Enoxaparin Sodium (Lovenox) 30 mg DAILY SC Last administered on 11/16/18 08:55; Admin Dose 30 MG; Start 11/14/18 at 09:00; Status Hold Acetaminophen (Tylenol Supp) 650 mg Q6H PRN [place] ELEVATED TEMPERATURE Last administered on 11/14/18at 23:33; Admin Dose 650 MG; Start 11/14/18 at 21:30 Clonidine (Catapres) 0.1 mg Q6H PRN PO PRN SBP > 160; Start 11/15/18 at 00:00 Hydralazine HCl (Apresoline) 25 mg Q6 PRN PO PRN SBP > 160 Last administered on 11/19/18 21:38; Admin Dose 25 MG; Start 11/15/18 at 00:00 Famotidine (Pepcid) 20 mg DAILY PO Last administered on 11/25/18 08:40; Admin Dose 20 MG; Start 11/19/18 at 09:00 Sodium Phosphate (Neutra-Phos) 250 mg BID PO Last administered on 11/25/18 08:39; Admin Dose 250 MG; Start 11/21/18 at 09:00 Ascorbic Acid (Vitamin C) 500 mg DAILY PO Last administered on 11/25/18 08:40; Admin Dose 500 MG; Start 11/23/18 at 09:00 Zinc Sulfate (Zinc Sulfate) 220 mg DAILY PO Last administered on 11/25/18 08:39; Admin Dose 220 MG; Start 11/23/18 at 09:00 Multivitamins Therapeutic (Theragran) 1 tab DAILY PO Last administered on 11/25/18 08:39; Admin Dose 1 TAB; Start 11/23/18 at 09:00 Vancomycin HCl (Vanco Iv Per Pharmacy) VANCOMYCIN PER PHARMACY PER PROTOCOL XX ; Start 11/22/18 at 18:30 Loratadine (Claritin) 10 mg DAILY PO Last administered on 11/25/18 08:39; Admin Dose 10 MG; Start 11/22/18 at 20:00 Fluocinonide (Lidex 0.05% Cr) 1 applic BID TOP Last administered on 11/25/18 08:41; Admin Dose 1 APPLIC; Start 11/22/18 at 21:00 Vancomycin HCl 1.25 gm/Sodium Chloride 250 ml @ 83.333 mls/ hr Q24H IVPB Last administered on 11/24/18 22:02; Admin Dose 83.333 MLS/HR; Start 11/23/18 at 22:00 Loratadine (Claritin) 10 mg DAILY PO Last administered on 11/24/18 09:23; Admin Dose 10 MG; Start 11/23/18 at 13:30 ALYSIA JIM M.D. Nov 25, 2018 11:22
[2018-11-25 13:29] VITALS: BP 120/81; PULSE 75; RESP 18
--- NOTE | 2018-11-25 13:57 | CONS ---
Assessment/Plan Assessment/Plan Hospital Course (Demo Recall) No acute changes, awake, confused, no fevers Antimicrobials: Vancomycin Microbiology: Urine culture on admission grew Proteus mirabilis, blood culture growing alphahemolytic strep species, repeat blood cultures negative. Allergy: Penicillin Indwelling: Jacobs catheter Physical examination: Chronically ill-appearing elderly woman who looks comfortable. Head atraumatic normocephalic sclera nonicteric. Bugle mucosa dry. Neck is supple, chest rise symmetrical, breath sounds diminished bases. Heart: S1-S2. Abdomen soft bowel sounds present. Extremities without cyanosis. Assessment: 1. Sepsis, present on admission 2. Strep bacteremia likely secondary to pneumonia 3. Dysphasia 4. Acute on chronic encephalopathy 5. Multiple chronic wounds 6. Rash cw allergic, s/p Rocephin and Zosyn Plan: Remains stable, repeat cx's neg, continue vancomycin to complete 2 weeks Consultation Date/Type/Reason Admit Date/Time Nov 13, 2018 at 23:15 Initial Consult Date 11/18/18 Type of Consult id Requesting Provider: WALDO CLEARY MD Date/Time of Note DATE: 11/25/18 TIME: 13:56 Exam/Review of Systems Exam Vitals Vital Signs Date Temp Pulse Resp B/P (MAP) Pulse Ox O2 O2 Flow FiO2 Time Delivery Rate 11/25/18 98.7 75 18 120/81 13:29 (94) 11/25/18 95 07:31 11/24/18 Room Air 14:00 Intake and Output 11/24/18 11/24/18 11/25/18 1515:00 23:00 07:00 IntakeIntake Total 290 ml 240 ml 490 ml OutputOutput Total 600 ml 500 ml 500 ml BalanceBalance -310 ml -260 ml -10 ml Results Result Diagram: 11/25/18 0435 11/23/18 0434 Results 24hrs Laboratory Tests Test 11/25/18 04:35 White Blood Count 6.0 Red Blood Count 3.38 L Hemoglobin 10.9 L Hematocrit 33.6 L Mean Corpuscular Volume 99.4 Mean Corpuscular Hemoglobin 32.2 Mean Corpuscular Hemoglobin Concent 32.4 Red Cell Distribution Width 13.2 Platelet Count 209 Mean Platelet Volume 11.9 H Immature Granulocytes % 0.300 Neutrophils % 75.2 Lymphocytes % 14.9 L Monocytes % 5.0 Eosinophils % 4.3 Basophils % 0.3 Nucleated Red Blood Cells % 0.0 Immature Granulocytes # 0.020 Neutrophils # 4.5 Lymphocytes # 0.9 Monocytes # 0.3 Eosinophils # 0.3 Basophils # 0.0 Nucleated Red Blood Cells # 0.0 Medications Medication Current Medications IV Flush (NS 3 ml) 3 ml PER PROTOCOL IV ; Start 11/14/18 at 00:00 Ondansetron HCl (Zofran Inj) 4 mg Q6H PRN IV NAUSEA/VOMITING; Start 11/14/18 at 00:00 Acetaminophen (Tylenol Tab) 650 mg Q6H PRN PO .PAIN 1-3 OR TEMP Last administered on 11/22/18 18:49; Admin Dose 650 MG; Start 11/14/18 at 00:00 Morphine Sulfate (morphine) 2 mg Q4H PRN IV .PAIN 7-10 Last administered on 11/19/18 06:22; Admin Dose 2 MG; Start 11/14/18 at 00:00 Enoxaparin Sodium (Lovenox) 30 mg DAILY SC Last administered on 11/16/18 08:55; Admin Dose 30 MG; Start 11/14/18 at 09:00; Status Hold Acetaminophen (Tylenol Supp) 650 mg Q6H PRN [place] ELEVATED TEMPERATURE Last administered on 11/14/18 23:33; Admin Dose 650 MG; Start 11/14/18 at 21:30 Clonidine (Catapres) 0.1 mg Q6H PRN PO PRN SBP > 160; Start 11/15/18 at 00:00 Hydralazine HCl (Apresoline) 25 mg Q6 PRN PO PRN SBP > 160 Last administered on 11/19/18 21:38; Admin Dose 25 MG; Start 11/15/18 at 00:00 Famotidine (Pepcid) 20 mg DAILY PO Last administered on 11/25/18 08:40; Admin Dose 20 MG; Start 11/19/18 at 09:00 Sodium Phosphate (Neutra-Phos) 250 mg BID PO Last administered on 11/25/18 08:39; Admin Dose 250 MG; Start 11/21/18 at 09:00 Ascorbic Acid (Vitamin C) 500 mg DAILY PO Last administered on 11/25/18 08:40; Admin Dose 500 MG; Start 11/23/18 at 09:00 Zinc Sulfate (Zinc Sulfate) 220 mg DAILY PO Last administered on 11/25/18 08:39; Admin Dose 220 MG; Start 11/23/18 at 09:00 Multivitamins Therapeutic (Theragran) 1 tab DAILY PO Last administered on 11/25/18 08:39; Admin Dose 1 TAB; Start 11/23/18 at 09:00 Vancomycin HCl (Vanco Iv Per Pharmacy) VANCOMYCIN PER PHARMACY PER PROTOCOL XX ; Start 11/22/18 at 18:30 Loratadine (Claritin) 10 mg DAILY PO Last administered on 11/25/18 08:39; Admin Dose 10 MG; Start 11/22/18 at 20:00 Fluocinonide (Lidex 0.05% Cr) 1 applic BID TOP Last administered on 11/25/18 08:41; Admin Dose 1 APPLIC; Start 11/22/18 at 21:00 Vancomycin HCl 1.25 gm/Sodium Chloride 250 ml @ 83.333 mls/ hr Q24H IVPB Last administered on 11/24/18at 22:02; Admin Dose 83.333 MLS/HR; Start 11/23/18 at 22:00 Loratadine (Claritin) 10 mg DAILY PO Last administered on 11/24/18at 09:23; Ad min Dose 10 MG; Start 11/23/18 at 13:30 Miscellaneous Information (*Rx Drug Level Order Reminder*) 1 2100 ONCE XX ; Start 11/25/18 at 21:00; Stop 11/25/18 at 21:01 SALMA HOOKER NP Nov 25, 2018 13:57
--- NOTE | 2018-11-25 14:31 | PN ---
Date/Time of Note Date/Time of Note DATE: 11/25/18 TIME: 14:30 Assessment/Plan VTE Prophylaxis Risk score (from Ns)>0 risk: 7 SCD applied (from Ns): Yes Pharmacological prophylaxis: LMWH Lines/Catheters [facility]from [facility] Saline Lock Urinary Cath still in place: Yes Reason Cath still needed: skin wounds contaminated by urine Assessment/Plan Hospital Course -Sepsis secondary to urinary tract infection, resolving continue antibiotics. Dr. Griffiths is following in infection disease consultation. -Alpha hemolytic strep bacteremia, 2D echo with no vegetation, continue Rocephin for 2 weeks per ID recommendations. -Proteus M UTI, continue Rocephin. -Acute metabolic encephalopathy. No evidence of acute intracranial hemorrhage, infarcts, or acute intracranial pathology per CT brain. -Cardiomegaly with ejection fraction of 60% -Mitral stenosis -Hypernatremia, resolved. Dr. Edwards is following in nephrology consultation. -Acute kidney injury -Thrombocytopenia, resolving. Dr. Herndon is following in hematology consultation. -Dysphagia, continue pureed diet, aspiration precaution. -Multiple stage I pressure ulcers, air mattress, off loading, optimize nutrition. Result Diagram: 11/25/18 0435 11/23/18 0434 Results 24hrs Laboratory Tests Test 11/25/18 04:35 White Blood Count 6.0 Red Blood Count 3.38 L Hemoglobin 10.9 L Hematocrit 33.6 L Mean Corpuscular Volume 99.4 Mean Corpuscular Hemoglobin 32.2 Mean Corpuscular Hemoglobin Concent 32.4 Red Cell Distribution Width 13.2 Platelet Count 209 Mean Platelet Volume 11.9 H Immature Granulocytes % 0.300 Neutrophils % 75.2 Lymphocytes % 14.9 L Monocytes % 5.0 Eosinophils % 4.3 Basophils % 0.3 Nucleated Red Blood Cells % 0.0 Immature Granulocytes # 0.020 Neutrophils # 4.5 Lymphocytes # 0.9 Monocytes # 0.3 Eosinophils # 0.3 Basophils # 0.0 Nucleated Red Blood Cells # 0.0 Subjective 24 Hr Interval Summary Free Text/Dictation Patient has no complaints, is resting comfortably Exam/Review of Systems Exam Vitals Vital Signs Date Temp Pulse Resp B/P (MAP) Pulse Ox O2 O2 Flow FiO2 Time Delivery Rate 11/25/18 98.7 75 18 120/81 13:29 (94) 11/25/18 95 07:31 11/24/18 Room Air 14:00 Intake and Output 11/24/18 11/24/18 11/25/18 1515:00 23:00 07:00 IntakeIntake Total 290 ml 240 ml 490 ml OutputOutput Total 600 ml 500 ml 500 ml BalanceBalance -310 ml -260 ml -10 ml Constitutional: well developed Head: normocephalic, atraumatic Neck: supple Respiratory: clear to auscultation Cardiovascular: regular rate and rhythm Gastrointestinal: soft, non-tender Extremities: normal pulses Results Results 24hrs Laboratory Tests Test 11/25/18 04:35 White Blood Count 6.0 Red Blood Count 3.38 L Hemoglobin 10.9 L Hematocrit 33.6 L Mean Corpuscular Volume 99.4 Mean Corpuscular Hemoglobin 32.2 Mean Corpuscular Hemoglobin Concent 32.4 Red Cell Distribution Width 13.2 Platelet Count 209 Mean Platelet Volume 11.9 H Immature Granulocytes % 0.300 Neutrophils % 75.2 Lymphocytes % 14.9 L Monocytes % 5.0 Eosinophils % 4.3 Basophils % 0.3 Nucleated Red Blood Cells % 0.0 Immature Granulocytes # 0.020 Neutrophils # 4.5 Lymphocytes # 0.9 Monocytes # 0.3 Eosinophils # 0.3 Basophils # 0.0 Nucleated Red Blood Cells # 0.0 Medications Medication Current Medications IV Flush (NS 3 ml) 3 ml PER PROTOCOL IV ; Start 11/14/18 at 00:00 Ondansetron HCl (Zofran Inj) 4 mg Q6H PRN IV NAUSEA/VOMITING; Start 11/14/18 at 00:00 Acetaminophen (Tylenol Tab) 650 mg Q6H PRN PO .PAIN 1-3 OR TEMP Last administered on 11/22/18at 18:49; Admin Dose 650 MG; Start 11/14/18 at 00:00 Morphine Sulfate (morphine) 2 mg Q4H PRN IV .PAIN 7-10 Last administered on 11/19/18at 06:22; Admin Dose 2 MG; Start 11/14/18 at 00:00 Enoxaparin Sodium (Lovenox) 30 mg DAILY SC Last administered on 11/16/18at 08:55; Admin Dose 30 MG; Start 11/14/18 at 09:00; Status Hold Acetaminophen (Tylenol Supp) 650 mg Q6H PRN [place] ELEVATED TEMPERATURE Last administered on 11/14/18 23:33; Admin Dose 650 MG; Start 11/14/18 at 21:30 Clonidine (Catapres) 0.1 mg Q6H PRN PO PRN SBP > 160; Start 11/15/18 at 00:00 Hydralazine HCl (Apresoline) 25 mg Q6 PRN PO PRN SBP > 160 Last administered on 11/19/18 21:38; Admin Dose 25 MG; Start 11/15/18 at 00:00 Famotidine (Pepcid) 20 mg DAILY PO Last administered on 11/25/18 08:40; Admin Dose 20 MG; Start 11/19/18 at 09:00 Sodium Phosphate (Neutra-Phos) 250 mg BID PO Last administered on 11/25/18 08:39; Admin Dose 250 MG; Start 11/21/18 at 09:00 Ascorbic Acid (Vitamin C) 500 mg DAILY PO Last administered on 11/25/18 08:40; Admin Dose 500 MG; Start 11/23/18 at 09:00 Zinc Sulfate (Zinc Sulfate) 220 mg DAILY PO Last administered on 11/25/18 08:39; Admin Dose 220 MG; Start 11/23/18 at 09:00 Multivitamins Therapeutic (Theragran) 1 tab DAILY PO Last administered on 11/25/18 08:39; Admin Dose 1 TAB; Start 11/23/18 at 09:00 Vancomycin HCl (Vanco Iv Per Pharmacy) VANCOMYCIN PER PHARMACY PER PROTOCOL XX ; Start 11/22/18 at 18:30 Loratadine (Claritin) 10 mg DAILY PO Last administered on 11/25/18 08:39; Admin Dose 10 MG; Start 11/22/18 at 20:00 Fluocinonide (Lidex 0.05% Cr) 1 applic BID TOP Last administered on 11/25/18 08:41; Admin Dose 1 APPLIC; Start 11/22/18 at 21:00 Vancomycin HCl 1.25 gm/Sodium Chloride 250 ml @ 83.333 mls/ hr Q24H IVPB Last administered on 11/24/18 22:02; Admin Dose 83.333 MLS/HR; Start 11/23/18 at 22:00 Loratadine (Claritin) 10 mg DAILY PO Last administered on 11/24/18 09:23; Admin Dose 10 MG; Start 11/23/18 at 13:30 Miscellaneous Information (*Rx Drug Level Order Reminder*) 1 2100 ONCE XX ; Start 11/25/18 at 21:00; Stop 11/25/18 at 21:01 CARLOS A LLANES Nov 25, 2018 14:31
[2018-11-25 20:04] VITALS: BP 137/68; PULSE 76; RESP 18
[2018-11-25] MEDS: VANCOMYCIN HCL 1.25 GM in SOD CHLORIDE 0.9% 250 ML IVPB SCH (22:23)
[2018-11-26 02:27] VITALS: BP 136/65; PULSE 81; RESP 18
[2018-11-26 07:38] VITALS: BP 132/63; PULSE 73; RESP 20
[2018-11-26] MEDS: LORATADINE 10 MG TAB PO SCH ×2 (09:00→10:06)
[2018-11-26] MEDS: NEUTRA-PHOS 250 MG PACKET PO SCH ×2 (10:05→20:45)
[2018-11-26] MEDS: ZINC SULFATE 220 MG CAP PO SCH (10:05)
[2018-11-26] MEDS: FLUOCINONIDE 0.05% 15 GM CR TOP SCH ×2 (10:06→20:51)
[2018-11-26] MEDS: ASCORBIC ACID 500 MG TAB PO SCH (10:06)
[2018-11-26] MEDS: FAMOTIDINE 20 MG TAB PO SCH (10:06)
[2018-11-26] MEDS: MULTIVITAMINS THERAPEUTIC TAB PO SCH (10:06)
--- NOTE | 2018-11-26 10:53 | CONS ---
Assessment/Plan Assessment/Plan Hospital Course (Demo Recall) #Thrombocytopenia -platelets are improving and are now stable and> 200K -this was likely 2/2 sepsis which has improved - DIC unlikely given the normal fibrinogen -TTP unlikely given normal LDH -would not transfuse platelets at this time unless platelet count is < 20K - abdominal ultrasound demonstrates fatty liver -HIV hepatitis are negative #Urosepsis -continue antibiotics. on vancomycin IV #ARF -management per nephrology. CR now normal #hypernatremia -improved -Na 144 Thank you for the opportunity to participate in this patients care A total of 40 minutes of face to face time was spent speaking with the patient, of which greater than 50% was spent in counseling and coordination of care and the detailed question and answer session. Consultation Date/Type/Reason Admit Date/Time Nov 13, 2018 at 23:15 Initial Consult Date 11/18/18 Type of Consult Hematology Reason for Consultation thrombocytopenia Requesting Provider: WALDO CLEARY MD Date/Time of Note DATE: 11/26/18 TIME: 10:52 24 HR Interval Summary Free Text/Dictation continues on Vancomycin IV per protocol Exam/Review of Systems Exam Vitals Vital Signs Date Temp Pulse Resp B/P (MAP) Pulse Ox O2 O2 Flow FiO2 Time Delivery Rate 11/26/18 98.1 73 20 132/63 98 07:38 (86) 11/24/18 Room Air 14:00 Intake and Output 11/25/18 11/25/18 11/26/18 1515:00 23:00 07:00 IntakeIntake Total 180 ml 60 ml 368 ml OutputOutput Total 500 ml 500 ml BalanceBalance 180 ml -440 ml -132 ml Constitutional: non-verbal Psych: confusion Head: normocephalic Eyes: nl conjunctiva ENMT: nl external ears & nose Neck: supple Respiratory: clear to auscultation Cardiovascular: regular rate and rhythm Gastrointestinal: soft Musculoskeletal: nl extremities to inspection Results Result Diagram: 11/25/18 0435 11/23/18 0434 Results 24hrs Laboratory Tests Test 11/25/18 21:00 Vancomycin Level Trough 13.7 Medications Medication Current Medications IV Flush (NS 3 ml) 3 ml PER PROTOCOL IV ; Start 11/14/18 at 00:00 Ondansetron HCl (Zofran Inj) 4 mg Q6H PRN IV NAUSEA/VOMITING; Start 11/14/18 at 00:00 Acetaminophen (Tylenol Tab) 650 mg Q6H PRN PO .PAIN 1-3 OR TEMP Last administered on 11/22/18 18:49; Admin Dose 650 MG; Start 11/14/18 at 00:00 Morphine Sulfate (morphine) 2 mg Q4H PRN IV .PAIN 7-10 Last administered on 11/19/18 06:22; Admin Dose 2 MG; Start 11/14/18 at 00:00 Enoxaparin Sodium (Lovenox) 30 mg DAILY SC Last administered on 11/16/18 08:55; Admin Dose 30 MG; Start 11/14/18 at 09:00; Status Hold Acetaminophen (Tylenol Supp) 650 mg Q6H PRN [place] ELEVATED TEMPERATURE Last administered on 11/14/18 23:33; Admin Dose 650 MG; Start 11/14/18 at 21:30 Clonidine (Catapres) 0.1 mg Q6H PRN PO PRN SBP > 160; Start 11/15/18 at 00:00 Hydralazine HCl (Apresoline) 25 mg Q6 PRN PO PRN SBP > 160 Last administered on 11/19/18 21:38; Admin Dose 25 MG; Start 11/15/18 at 00:00 Famotidine (Pepcid) 20 mg DAILY PO Last administered on 11/26/18 10:06; Admin Dose 20 MG; Start 11/19/18 at 09:00 Sodium Phosphate (Neutra-Phos) 250 mg BID PO Last administered on 11/26/18 10:05; Admin Dose 250 MG; Start 11/21/18 at 09:00 Ascorbic Acid (Vitamin C) 500 mg DAILY PO Last administered on 11/26/18 10:06; Admin Dose 500 MG; Start 11/23/18 at 09:00 Zinc Sulfate (Zinc Sulfate) 220 mg DAILY PO Last administered on 11/26/18 10:05; Admin Dose 220 MG; Start 11/23/18 at 09:00 Multivitamins Therapeutic (Theragran) 1 tab DAILY PO Last administered on 11/26/18 10:06; Admin Dose 1 TAB; Start 11/23/18 at 09:00 Vancomycin HCl (Vanco Iv Per Pharmacy) VANCOMYCIN PER PHARMACY PER PROTOCOL XX ; Start 11/22/18 at 18:30 Loratadine (Claritin) 10 mg DAILY PO Last administered on 11/26/18 10:06; Admin Dose 10 MG; Start 11/22/18 at 20:00 Fluocinonide (Lidex 0.05% Cr) 1 applic BID TOP Last administered on 11/26/18 10:06; Admin Dose 1 APPLIC; Start 11/22/18 at 21:00 Vancomycin HCl 1.25 gm/Sodium Chloride 250 ml @ 83.333 mls/ hr Q24H IVPB Last administered on 11/25/18 22:23; Admin Dose 83.333 MLS/HR; Start 11/23/18 at 22:00 Loratadine (Claritin) 10 mg DAILY PO Last administered on 11/24/18 09:23; Admin Dose 10 MG; Start 11/23/18 at 13:30 ALYSIA JIM M.D. Nov 26, 2018 10:53
--- NOTE | 2018-11-26 12:12 | CONS ---
Assessment/Plan Assessment/Plan Hospital Course (Demo Recall) All noted. No acute changes, no fevers Antimicrobials: Vancomycin Microbiology: Urine culture on admission grew Proteus mirabilis, blood culture growing alphahemolytic strep species, repeat blood cultures negative. Allergy: Penicillin Indwelling: Jacobs catheter Physical examination: Chronically ill-appearing elderly woman who looks comfortable. Head atraumatic normocephalic sclera nonicteric. Bugle mucosa dry. Neck is supple, chest rise symmetrical, breath sounds diminished bases. Heart: S1-S2. Abdomen soft bowel sounds present. Extremities without cyanosis. Assessment: 1. Sepsis, present on admission 2. Strep bacteremia likely secondary to pneumonia 3. Dysphasia 4. Acute on chronic encephalopathy 5. Multiple chronic wounds 6. Rash cw allergic, s/p Rocephin and Zosyn Plan: Remains stable, repeat cx's neg, continue vancomycin for 5 more days Consultation Date/Type/Reason Admit Date/Time Nov 13, 2018 at 23:15 Initial Consult Date 11/18/18 Type of Consult id Requesting Provider: WALDO CLEARY MD Date/Time of Note DATE: 11/26/18 TIME: 12:11 Exam/Review of Systems Exam Vitals Vital Signs Date Temp Pulse Resp B/P (MAP) Pulse Ox O2 O2 Flow FiO2 Time Delivery Rate 11/26/18 98.1 73 20 132/63 98 07:38 (86) 11/24/18 Room Air 14:00 Intake and Output 11/25/18 11/25/18 11/26/18 1515:00 23:00 07:00 IntakeIntake Total 180 ml 60 ml 368 ml OutputOutput Total 500 ml 500 ml BalanceBalance 180 ml -440 ml -132 ml Results Result Diagram: 11/25/18 0435 11/23/18 0434 Results 24hrs Laboratory Tests Test 11/25/18 21:00 Vancomycin Level Trough 13.7 Medications Medication Current Medications IV Flush (NS 3 ml) 3 ml PER PROTOCOL IV ; Start 11/14/18 at 00:00 Ondansetron HCl (Zofran Inj) 4 mg Q6H PRN IV NAUSEA/VOMITING; Start 11/14/18 at 00:00 Acetaminophen (Tylenol Tab) 650 mg Q6H PRN PO .PAIN 1-3 OR TEMP Last admi nistered on 11/22/18at 18:49; Admin Dose 650 MG; Start 11/14/18 at 00:00 Morphine Sulfate (morphine) 2 mg Q4H PRN IV .PAIN 7-10 Last administered on 11/19/18 06:22; Admin Dose 2 MG; Start 11/14/18 at 00:00 Enoxaparin Sodium (Lovenox) 30 mg DAILY SC Last administered on 11/16/18 08:55; Admin Dose 30 MG; Start 11/14/18 at 09:00; Status Hold Acetaminophen (Tylenol Supp) 650 mg Q6H PRN [place] ELEVATED TEMPERATURE Last administered on 11/14/18 23:33; Admin Dose 650 MG; Start 11/14/18 at 21:30 Clonidine (Catapres) 0.1 mg Q6H PRN PO PRN SBP > 160; Start 11/15/18 at 00:00 Hydralazine HCl (Apresoline) 25 mg Q6 PRN PO PRN SBP > 160 Last administered on 11/19/18 21:38; Admin Dose 25 MG; Start 11/15/18 at 00:00 Famotidine (Pepcid) 20 mg DAILY PO Last administered on 11/26/18 10:06; Admin Dose 20 MG; Start 11/19/18 at 09:00 Sodium Phosphate (Neutra-Phos) 250 mg BID PO Last administered on 11/26/18 10:05; Admin Dose 250 MG; Start 11/21/18 at 09:00 Ascorbic Acid (Vitamin C) 500 mg DAILY PO Last administered on 11/26/18 10:06; Admin Dose 500 MG; Start 11/23/18 at 09:00 Zinc Sulfate (Zinc Sulfate) 220 mg DAILY PO Last administered on 11/26/18 10:05; Admin Dose 220 MG; Start 11/23/18 at 09:00 Multivitamins Therapeutic (Theragran) 1 tab DAILY PO Last administered on 11/26/18 10:06; Admin Dose 1 TAB; Start 11/23/18 at 09:00 Vancomycin HCl (Vanco Iv Per Pharmacy) VANCOMYCIN PER PHARMACY PER PROTOCOL XX ; Start 11/22/18 at 18:30 Loratadine (Claritin) 10 mg DAILY PO Last administered on 11/26/18 10:06; Admin Dose 10 MG; Start 11/22/18 at 20:00 Fluocinonide (Lidex 0.05% Cr) 1 applic BID TOP Last administered on 11/26/18at 10:06; Admin Dose 1 APPLIC; Start 11/22/18 at 21:00 Vancomycin HCl 1.25 gm/Sodium Chloride 250 ml @ 83.333 mls/ hr Q24H IVPB Last administered on 11/25/18at 22:23; Admin Dose 83.333 MLS/HR; Start 11/23/18 at 22:00 Loratadine (Claritin) 10 mg DAILY PO Last administered on 11/24/18at 09:23; Admin Dose 10 MG; Start 11/23/18 at 13:30 SALMA HOOKER NP Nov 26, 2018 12:12
[2018-11-26 13:42] VITALS: BP 122/59; PULSE 74; RESP 18
--- NOTE | 2018-11-26 17:18 | PSY ---
Date/Time of Note Date/Time of Note DATE: 11/26/18 TIME: 17:10 Psychiatric Subjective Eval Consent Pt consented to telemedicine: No Subjective Evaluation Patient location: inpatient Chief Complaint: BIB Private amb form [place] 1.53 & BUN 68 byDr. Jin History of present illness Patient is 78-year-old female with history of hypertension, osteoarthritis, respiratory failure with tracheostomy, [place] syndrome, heart failure, hypothyroidism, and GERD. On a face to face evaluation, patient is talking to herself, acively responding to internal stimuli. 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 Patient is in poor contact with reality, cannot process information. Past psychiatric history History of Dementia with behavioral disturbance. Hospitalization: other Medical history Problems Medical Problems: (1) Acute renal failure Status: Acute (2) Hypernatremia Status: Acute Allergies: Coded Allergies: Penicillins (Unverified Allergy, Unknown, 11/14/18) amitriptyline (Unverified Allergy, Unknown, 11/14/18) diazepam (Unverified Allergy, Unknown, 11/14/18) zolpidem (Unverified Allergy, Unknown, 11/14/18) Substance Abuse Substance abuse history: No Prior substance abuse treatmen: No Social History Marital status: other DPA/Conservatorship: No Psychiatric Objective Eval Review of Systems: Review of Systems: Not Applicable Physical Examination: Physical Examination: Not Applicable Energy: Adequate Interest: Adequate Mental Status Examination: Appearance: Poor Hygiene Eye Contact: Poor Behavior: Agitated Speech: Loud AFFECT: Anxious Mood: Anxious Though Process: Loose Thought Content: Delusions, Hallucinations Orientation: x1 Cognition: Alert Insight: Severe Judgement: Impared Attention Span: Distractible Laboratory Results Laboratory Tests Test 11/25/18 04:35 11/25/18 21:00 White Blood Count 6.0 10^3/ul Red Blood Count 3.38 10^6/ul Hemoglobin 10.9 g/dl Hematocrit 33.6 % Mean Corpuscular Volume 99.4 fl Mean Corpuscular Hemoglobin 32.2 pg Mean Corpuscular Hemoglobin Concent 32.4 g/dl Red Cell Distribution Width 13.2 % Platelet Count 209 10^3/UL Mean Platelet Volume 11.9 fl Immature Granulocytes % 0.300 % Neutrophils % 75.2 % Lymphocytes % 14.9 % Monocytes % 5.0 % Eosinophils % 4.3 % Basophils % 0.3 % Nucleated Red Blood Cells % 0.0 /100WBC Immature Granulocytes # 0.020 10^3/ul Neutrophils # 4.5 10^3/ul Lymphocytes # 0.9 10^3/ul Monocytes # 0.3 10^3/ul Eosinophils # 0.3 10^3/ul Basophils # 0.0 10^3/ul Nucleated Red Blood Cells # 0.0 10^3/ul Vancomycin Level Trough 13.7 ug/ml Assessment and Plan Assessment/Diagnosis Diagnosis Dementia with behavioral disturbance Recommendation/Plan Medication Management Risperdal 0.5mg bid Multiple antipsychotics: No (Does not meet criteria for 5150 hold) Discharge Disposition: Other Legal Status: Voluntary FREDDY PEÑA NP Nov 26, 2018 17:18
--- NOTE | 2018-11-26 18:33 | PN ---
Date/Time of Note Date/Time of Note DATE: 11/26/18 TIME: 18:32 Assessment/Plan VTE Prophylaxis Risk score (from Ns)>0 risk: 8 SCD applied (from [facility] [place]): Yes SCD contraindicated: other Pharmacological prophylaxis: other Lines/Catheters IV Catheter Type [facility]from [facility] Saline Lock Urinary Cath still in place: Yes Reason Cath still needed: urinary retention Assessment/Plan Assessment/Plan -Sepsis secondary to urinary tract infection, resolving continue antibiotics. - Dr. Griffiths is following in infection disease consultation. -Alpha hemolytic strep bacteremia, 2D echo with no vegetation, continue Rocephin for 2 weeks per ID recommendations. -Proteus M UTI, continue Rocephin. -Acute metabolic encephalopathy. No evidence of acute intracranial hemorrhage, infarcts, or acute intracranial pathology per CT brain. -Cardiomegaly with ejection fraction of 60% -Mitral stenosis -Hypernatremia, resolved. -Dr. Edwards is following in nephrology consultation. -Acute kidney injury -Thrombocytopenia, resolved -Dr. Herndon is following in hematology consultation. -Dysphagia, continue pureed diet, aspiration precaution. -Multiple stage I pressure ulcers, air mattress, off loading, optimize nutrition. Result Diagram: 11/25/18 0435 11/23/18 0434 Results 24hrs Laboratory Tests Test 11/25/18 21:00 Vancomycin Level Trough 13.7 Subjective 24 Hr Interval Summary Free Text/Dictation nad seems comfortable afebrile placement pending no new events reported last night dw staff Eyes: no complaints ENT: no complaints Respiratory: no complaints Cardiovascular: no complaints Gastrointestinal: no complaints Genitourinary: no complaints Musculoskeletal: restricted range of motion Neurologic: no complaints Endocrine: no complaints Psychological: nl mood/affect Exam/Review of Systems Exam Vitals Vital Signs Date Temp Pulse Resp B/P (MAP) Pulse Ox O2 O2 Flow FiO2 Time Delivery Rate 11/26/18 97.5 74 18 122/59 100 13:42 (80) 11/24/18 Room Air 14:00 Intake and Output 11/25/18 11/25/18 11/26/18 1515:00 23:00 07:00 IntakeIntake Total 180 ml 60 ml 368 ml OutputOutput Total 500 ml 500 ml BalanceBalance 180 ml -440 ml -132 ml Constitutional: alert, well developed Psych: nl mood/affect Eyes: nl lids, nl sclera ENMT: nl external ears & nose Neck: non-tender Respiratory: clear to auscultation Cardiovascular: nl pulses, other (S1S2) Gastrointestinal: soft, non-tender Musculoskeletal: muscle weakness, range of motion Extremities: normal pulses Neurological: confused Skin: other (skiln wounds ) Lymph: nontender Results Results 24hrs Laboratory Tests Test 11/25/18 21:00 Vancomycin Level Trough 13.7 Medications Medication Current Medications IV Flush (NS 3 ml) 3 ml PER PROTOCOL IV ; Start 11/14/18 at 00:00 Ondansetron HCl (Zofran Inj) 4 mg Q6H PRN IV NAUSEA/VOMITING; Start 11/14/18 at 00:00 Acetaminophen (Tylenol Tab) 650 mg Q6H PRN PO .PAIN 1-3 OR TEMP Last administered on 11/22/18at 18:49; Admin Dose 650 MG; Start 11/14/18 at 00:00 Morphine Sulfate (morphine) 2 mg Q4H PRN IV .PAIN 7-10 Last administered on 11/19/18at 06:22; Admin Dose 2 MG; Start 11/14/18 at 00:00 Enoxaparin Sodium (Lovenox) 30 mg DAILY SC Last administered on 11/16/18at 08:55; Admin Dose 30 MG; Start 11/14/18 at 09:00; Status Hold Acetaminophen (Tylenol Supp) 650 mg Q6H PRN [place] ELEVATED TEMPERATURE Last administered on 11/14/18at 23:33; Admin Dose 650 MG; Start 11/14/18 at 21:30 Clonidine (Catapres) 0.1 mg Q6H PRN PO PRN SBP > 160; Start 11/15/18 at 00:00 Hydralazine HCl (Apresoline) 25 mg Q6 PRN PO PRN SBP > 160 Last administered on 11/19/18at 21:38; Admin Dose 25 MG; Start 11/15/18 at 00:00 Famotidine (Pepcid) 20 mg DAILY PO Last administered on 11/26/18at 10:06; Admin Dose 20 MG; Start 11/19/18 at 09:00 Sodium Phosphate (Neutra-Phos) 250 mg BID PO Last administered on 11/26/18at 10:05; Admin Dose 250 MG; Start 11/21/18 at 09:00 Ascorbic Acid (Vitamin C) 500 mg DAILY PO Last administered on 11/26/18 10:06; Admin Dose 500 MG; Start 11/23/18 at 09:00 Zinc Sulfate (Zinc Sulfate) 220 mg DAILY PO Last administered on 11/26/18 10:05; Admin Dose 220 MG; Start 11/23/18 at 09:00 Multivitamins Therapeutic (Theragran) 1 tab DAILY PO Last administered on 11/26/18 10:06; Admin Dose 1 TAB; Start 11/23/18 at 09:00 Vancomycin HCl (Vanco Iv Per Pharmacy) VANCOMYCIN PER PHARMACY PER PROTOCOL XX ; Start 11/22/18 at 18:30 Loratadine (Claritin) 10 mg DAILY PO Last administered on 11/26/18 10:06; Admin Dose 10 MG; Start 11/22/18 at 20:00 Fluocinonide (Lidex 0.05% Cr) 1 applic BID TOP Last administered on 11/26/18 10:06; Admin Dose 1 APPLIC; Start 11/22/18 at 21:00 Vancomycin HCl 1.25 gm/Sodium Chloride 250 ml @ 83.333 mls/ hr Q24H IVPB Last administered on 11/25/18 22:23; Admin Dose 83.333 MLS/HR; Start 11/23/18 at 22 :00 Risperidone (Risperdal) 0.5 mg BID PO ; Start 11/26/18 at 21:00 JASEN SOTOMAYOR Nov 26, 2018 18:33
[2018-11-26 20:00] VITALS: BP 112/59; PULSE 86; RESP 19
[2018-11-26] MEDS: RISPERIDONE 1 MG TAB PO SCH (20:45)
[2018-11-26] MEDS ORDERED: RISPERIDONE 0.25 MG TAB PO SCH (21:00)
[2018-11-26] MEDS ORDERED: RISPERIDONE 0.25 MG TAB GTB SCH (21:00)
[2018-11-26] MEDS: VANCOMYCIN HCL 1.25 GM in SOD CHLORIDE 0.9% 250 ML IVPB SCH (21:39)
[2018-11-26 23:30] VITALS: BP 124/64; PULSE 74; RESP 20
[2018-11-27] MEDS: ACETAMINOPHEN 325 MG TAB PO PRN ×3 (01:02→16:40)
[2018-11-27 01:45] VITALS: BP 137/68; PULSE 83; RESP 19
[2018-11-27 08:00] VITALS: BP 132/73; PULSE 81; RESP 18
[2018-11-27] MEDS: NEUTRA-PHOS 250 MG PACKET PO SCH ×3 (09:00→21:04)
[2018-11-27] MEDS: LORATADINE 10 MG TAB PO SCH ×2 (09:00→10:49)
[2018-11-27] MEDS: FLUOCINONIDE 0.05% 15 GM CR TOP SCH ×3 (09:00→21:04)
[2018-11-27] MEDS: RISPERIDONE 1 MG TAB PO SCH ×3 (09:00→21:04)
[2018-11-27] MEDS: MULTIVITAMINS THERAPEUTIC TAB PO SCH (09:21)
[2018-11-27] MEDS: ZINC SULFATE 220 MG CAP PO SCH (09:21)
[2018-11-27] MEDS: ASCORBIC ACID 500 MG TAB PO SCH (09:21)
[2018-11-27] MEDS: FAMOTIDINE 20 MG TAB PO SCH (09:21)
--- NOTE | 2018-11-27 12:58 | CONS ---
Assessment/Plan Assessment/Plan Hospital Course (Demo Recall) awake, looks comfortable Antimicrobials: Vancomycin Microbiology: Urine culture on admission grew Proteus mirabilis, blood culture growing alphahemolytic strep species, repeat blood cultures negative. Allergy: Penicillin Indwelling: Jacobs catheter Physical examination: Chronically ill-appearing elderly woman who looks comfortable. Head atraumatic normocephalic sclera nonicteric. Bugle mucosa dry. Neck is supple, chest rise symmetrical, breath sounds diminished bases. Heart: S1-S2. Abdomen soft bowel sounds present. Extremities without cyanosis. Assessment: 1. Sepsis, present on admission 2. Strep bacteremia likely secondary to pneumonia 3. Dysphasia 4. Acute on chronic encephalopathy 5. Multiple chronic wounds 6. Rash cw allergic, s/p Rocephin and Zosyn Plan: Remains unchanged, repeat cx's neg, continue vancomycin for 4 more days Consultation Date/Type/Reason Admit Date/Time Nov 13, 2018 at 23:15 Initial Consult Date 11/18/18 Type of Consult id Requesting Provider: WALDO CLEARY MD Date/Time of Note DATE: 11/27/18 TIME: 12:57 Exam/Review of Systems Exam Vitals Vital Signs Date Temp Pulse Resp B/P (MAP) Pulse Ox O2 O2 Flow FiO2 Time Delivery Rate 11/27/18 97.9 81 18 132/73 99 08:00 (92) 11/24/18 Room Air 14:00 Intake and Output 11/26/18 11/26/18 11/27/18 1515:00 23:00 07:00 IntakeIntake Total 840 ml 360 ml 250 ml OutputOutput Total 900 ml 800 ml BalanceBalance 840 ml -540 ml -550 ml Results Result Diagram: 11/25/18 0435 11/27/18 0737 Results 24hrs Laboratory Tests Test 11/27/18 07:37 Blood Urea Nitrogen 9 Creatinine 0.53 Medications Medication Current Medications IV Flush (NS 3 ml) 3 ml PER PROTOCOL IV ; Start 11/14/18 at 00:00 Ondansetron HCl (Zofran Inj) 4 mg Q6H PRN IV NAUSEA/VOMITING; Start 11/14/18 at 00:00 Acetaminophen (Tylenol Tab) 650 mg Q6H PRN PO .PAIN 1-3 OR TEMP Last admi nistered on 11/27/18at 09:21; Admin Dose 650 MG; Start 11/14/18 at 00:00 Morphine Sulfate (morphine) 2 mg Q4H PRN IV .PAIN 7-10 Last administered on 11/19/18 06:22; Admin Dose 2 MG; Start 11/14/18 at 00:00 Enoxaparin Sodium (Lovenox) 30 mg DAILY SC Last administered on 11/16/18 08:55; Admin Dose 30 MG; Start 11/14/18 at 09:00; Status Hold Acetaminophen (Tylenol Supp) 650 mg Q6H PRN [place] ELEVATED TEMPERATURE Last administered on 11/14/18 23:33; Admin Dose 650 MG; Start 11/14/18 at 21:30 Clonidine (Catapres) 0.1 mg Q6H PRN PO PRN SBP > 160; Start 11/15/18 at 00:00 Hydralazine HCl (Apresoline) 25 mg Q6 PRN PO PRN SBP > 160 Last administered on 11/19/18 21:38; Admin Dose 25 MG; Start 11/15/18 at 00:00 Famotidine (Pepcid) 20 mg DAILY PO Last administered on 11/27/18 09:21; Admin Dose 20 MG; Start 11/19/18 at 09:00 Sodium Phosphate (Neutra-Phos) 250 mg BID PO Last administered on 11/27/18 10:48; Admin Dose 250 MG; Start 11/21/18 at 09:00 Ascorbic Acid (Vitamin C) 500 mg DAILY PO Last administered on 11/27/18 09:21; Admin Dose 500 MG; Start 11/23/18 at 09:00 Zinc Sulfate (Zinc Sulfate) 220 mg DAILY PO Last administered on 11/27/18 09:21; Admin Dose 220 MG; Start 11/23/18 at 09:00 Multivitamins Therapeutic (Theragran) 1 tab DAILY PO Last administered on 11/27/18 09:21; Admin Dose 1 TAB; Start 11/23/18 at 09:00 Vancomycin HCl (Vanco Iv Per Pharmacy) VANCOMYCIN PER PHARMACY PER PROTOCOL XX ; Start 11/22/18 at 18:30 Loratadine (Claritin) 10 mg DAILY PO Last administered on 11/27/18 10:49; Admin Dose 10 MG; Start 11/22/18 at 20:00 Fluocinonide (Lidex 0.05% Cr) 1 applic BID TOP Last administered on 11/27/18 10:48; Admin Dose 1 APPLIC; Start 11/22/18 at 21:00 Vancomycin HCl 1.25 gm/Sodium Chloride 250 ml @ 83.333 mls/ hr Q24H IVPB Last administered on 11/26/18 21:39; Admin Dose 83.333 MLS/HR; Start 11/23/18 at 22:00 Risperidone (Risperdal) 0.5 mg BID PO Last administered on 11/27/18 10:48; Admin Dose 0.5 MG; Start 11/26/18 at 21:00 SALMA HOOKER NP Nov 27, 2018 12:58
[2018-11-27 13:30] VITALS: BP 108/59; PULSE 73; RESP 18
--- NOTE | 2018-11-27 15:20 | PN ---
Date/Time of Note Date/Time of Note DATE: 11/27/18 TIME: 15:17 Assessment/Plan VTE Prophylaxis Risk score (from [facility])>0 risk: 5 SCD applied (from [facility]): Yes SCD contraindicated: other Pharmacological prophylaxis: other Pharm contraindication: other Lines/Catheters IV Catheter Type (from [facility]): Saline Lock Urinary Cath still in place: Yes Reason Cath still needed: urinary retention Assessment/Plan Assessment/Plan -Sepsis secondary to urinary tract infection, resolving continue antibiotics. - Dr. Griffiths is following in infection disease consultation. -Alpha hemolytic strep bacteremia, 2D echo with no vegetation, continue Rocephin for 2 weeks per ID recommendations. -Proteus M UTI, continue Rocephin. -Acute metabolic encephalopathy. No evidence of acute intracranial hemorrhage, infarcts, or acute intracranial pathology per CT brain. -Cardiomegaly with ejection fraction of 60% -Mitral stenosis -Hypernatremia, resolved. -Dr. Edwards is following in nephrology consultation. -Acute kidney injury -Thrombocytopenia, resolving. -Dr. Herndon is following in hematology consultation. -Dysphagia, continue pureed diet, aspiration precaution. -Multiple stage I pressure ulcers, air mattress, off loading, optimize n utrition. - wound care Patient seen in collaboration with Dr Jin . Dw staff Result Diagram: 11/25/18 0435 11/27/18 0737 Results 24hrs Laboratory Tests Test 11/27/18 07:37 Blood Urea Nitrogen 9 Creatinine 0.53 Subjective 24 Hr Interval Summary Free Text/Dictation nad Mid line insertion today afebrile Thrombocytopenia, resolved placement pending no new events reported last night dw staff Eyes: no complaints ENT: no complaints Respiratory: no complaints Cardiovascular: no complaints Gastrointestinal: no complaints Musculoskeletal: restricted range of motion Exam/Review of Systems Exam Vitals Vital Signs Date Temp Pulse Resp B/P (MAP) Pulse Ox O2 O2 Flow FiO2 Time Delivery Rate 11/27/18 97.7 73 18 108/59 93 Room Air 13:30 (75) Intake and Output 11/26/18 11/26/18 11/27/18 1515:00 23:00 07:00 IntakeIntake Total 840 ml 360 ml 250 ml OutputOutput Total 900 ml 800 ml BalanceBalance 840 ml -540 ml -550 ml Constitutional: alert, well developed Psych: nl mood/affect Eyes: nl lids, nl sclera ENMT: nl external ears & nose Neck: non-tender Respiratory: diminished breath sounds Musculoskeletal: muscle weakness Results Results 24hrs Laboratory Tests Test 11/27/18 07:37 Blood Urea Nitrogen 9 Creatinine 0.53 Medications Medication Current Medications IV Flush (NS 3 ml) 3 ml PER PROTOCOL IV ; Start 11/14/18 at 00:00 Ondansetron HCl (Zofran Inj) 4 mg Q6H PRN IV NAUSEA/VOMITING; Start 11/14/18 at 00:00 Acetaminophen (Tylenol Tab) 650 mg Q6H PRN PO .PAIN 1-3 OR TEMP Last adminis tered on 11/27/18 09:21; Admin Dose 650 MG; Start 11/14/18 at 00:00 Morphine Sulfate (morphine) 2 mg Q4H PRN IV .PAIN 7-10 Last administered on 11/19/18 06:22; Admin Dose 2 MG; Start 11/14/18 at 00:00 Enoxaparin Sodium (Lovenox) 30 mg DAILY SC Last administered on 11/16/18 08:55; Admin Dose 30 MG; Start 11/14/18 at 09:00; Status Hold Acetaminophen (Tylenol Supp) 650 mg Q6H PRN [place] ELEVATED TEMPERATURE Last administered on 11/14/18 23:33; Admin Dose 650 MG; Start 11/14/18 at 21:30 Clonidine (Catapres) 0.1 mg Q6H PRN PO PRN SBP > 160; Start 11/15/18 at 00:00 Hydralazine HCl (Apresoline) 25 mg Q6 PRN PO PRN SBP > 160 Last administered on 11/19/18 21:38; Admin Dose 25 MG; Start 11/15/18 at 00:00 Famotidine (Pepcid) 20 mg DAILY PO Last administered on 11/27/18 09:21; Admin Dose 20 MG; Start 11/19/18 at 09:00 Sodium Phosphate (Neutra-Phos) 250 mg BID PO Last administered on 11/27/18 10:48; Admin Dose 250 MG; Start 11/21/18 at 09:00 Ascorbic Acid (Vitamin C) 500 mg DAILY PO Last administered on 11/27/18 09:21; Admin Dose 500 MG; Start 11/23/18 at 09:00 Zinc Sulfate (Zinc Sulfate) 220 mg DAILY PO Last administered on 11/27/18 09:21; Admin Dose 220 MG; Start 11/23/18 at 09:00 Multivitamins Therapeutic (Theragran) 1 tab DAILY PO Last administered on 11/27/18 09:21; Admin Dose 1 TAB; Start 11/23/18 at 09:00 Vancomycin HCl (Vanco Iv Per Pharmacy) VANCOMYCIN PER PHARMACY PER PROTOCOL XX ; Start 11/22/18 at 18:30 Loratadine (Claritin) 10 mg DAILY PO Last administered on 11/27/18 10:49; Admin Dose 10 MG; Start 11/22/18 at 20:00 Fluocinonide (Lidex 0.05% Cr) 1 applic BID TOP Last administered on 11/27/18 10:48; Admin Dose 1 APPLIC; Start 11/22/18 at 21:00 Vancomycin HCl 1.25 gm/Sodium Chloride 250 ml @ 83.333 mls/ hr Q24H IVPB Last administered on 11/26/18 21:39; Admin Dose 83.333 MLS/HR; Start 11/23/18 at 22:00 Risperidone (Risperdal) 0.5 mg BID PO Last administered on 11/27/18 10:48; Admin Dose 0.5 MG; Start 11/26/18 at 21:00 JASEN SOTOMAYOR Nov 27, 2018 15:20
[2018-11-27 20:16] VITALS: BP 102/65; PULSE 69; RESP 17
[2018-11-27] MEDS: VANCOMYCIN HCL 1.25 GM in SOD CHLORIDE 0.9% 250 ML IVPB SCH (21:05)
[2018-11-28 02:00] VITALS: BP 137/68; PULSE 87; RESP 19
[2018-11-28 07:22] VITALS: BP 119/51; PULSE 76; RESP 18
[2018-11-28] MEDS: MULTIVITAMINS THERAPEUTIC TAB PO SCH (08:59)
[2018-11-28] MEDS: FAMOTIDINE 20 MG TAB PO SCH (09:00)
[2018-11-28] MEDS: LORATADINE 10 MG TAB PO SCH (09:00)
[2018-11-28] MEDS: RISPERIDONE 1 MG TAB PO SCH ×2 (09:00→21:12)
[2018-11-28] MEDS: NEUTRA-PHOS 250 MG PACKET PO SCH ×2 (09:00→21:12)
[2018-11-28] MEDS: ZINC SULFATE 220 MG CAP PO SCH (09:00)
[2018-11-28] MEDS: ASCORBIC ACID 500 MG TAB PO SCH (09:00)
[2018-11-28] MEDS: FLUOCINONIDE 0.05% 15 GM CR TOP SCH ×2 (09:00→21:13)
[2018-11-28 14:05] VITALS: BP 111/52; PULSE 74; RESP 18
--- NOTE | 2018-11-28 14:22 | CONS ---
Assessment/Plan Assessment/Plan Hospital Course (Demo Recall) No acute changes, looks comfortable, no fevers Antimicrobials: Vancomycin Microbiology: Urine culture on admission grew Proteus mirabilis, blood culture growing alphahemolytic strep species, repeat blood cultures negative. Allergy: Penicillin Indwelling: Jacobs catheter Physical examination: Chronically ill-appearing elderly woman who looks comfortable. Head atraumatic normocephalic sclera nonicteric. Bugle mucosa dry. Neck is supple, chest rise symmetrical, breath sounds diminished bases. Heart: S1-S2. Abdomen soft bowel sounds present. Extremities without cyanosis. Assessment: 1. Sepsis, present on admission 2. Strep bacteremia likely secondary to pneumonia 3. Dysphasia 4. Acute on chronic encephalopathy 5. Multiple chronic wounds 6. Rash cw allergic, s/p Rocephin and Zosyn Plan: Remains unchanged, repeat cx's neg, continue vancomycin for 3 more days, psych rec-s Consultation Date/Type/Reason Admit Date/Time Nov 13, 2018 at 23:15 Initial Consult Date 11/18/18 Type of Consult id Requesting Provider: WALDO CLEARY MD Date/Time of Note DATE: 11/28/18 TIME: 14:21 Exam/Review of Systems Exam Vitals Vital Signs Date Temp Pulse Resp B/P (MAP) Pulse Ox O2 O2 Flow FiO2 Time Delivery Rate 11/28/18 97.8 74 18 111/52 93 Room Air 14:05 (71) Intake and Output 11/27/18 11/27/18 11/28/18 1515:00 23:00 07:00 IntakeIntake Total 440 ml 120 ml 250 ml OutputOutput Total 700 ml BalanceBalance 440 ml -580 ml 250 ml Results Result Diagram: 11/25/18 0435 11/27/18 0737 Medications Medication Current Medications IV Flush (NS 3 ml) 3 ml PER PROTOCOL IV ; Start 11/14/18 at 00:00 Ondansetron HCl (Zofran Inj) 4 mg Q6H PRN IV NAUSEA/VOMITING; Start 11/14/18 at 00:00 Acetaminophen (Tylenol Tab) 650 mg Q6H PRN PO .PAIN 1-3 OR TEMP Last administered on 11/27/18at 16:40; Admin Dose 650 MG; Start 11/14/18 at 00:00 Morphine Sulfate (morphine) 2 mg Q4H PRN IV .PAIN 7-10 Last administered on 11/19/18 06:22; Admin Dose 2 MG; Start 11/14/18 at 00:00 Enoxaparin Sodium (Lovenox) 30 mg DAILY SC Last administered on 11/16/18 08:55; Admin Dose 30 MG; Start 11/14/18 at 09:00; Status Hold Acetaminophen (Tylenol Supp) 650 mg Q6H PRN [place] ELEVATED TEMPERATURE Last administered on 11/14/18 23:33; Admin Dose 650 MG; Start 11/14/18 at 21:30 Clonidine (Catapres) 0.1 mg Q6H PRN PO PRN SBP > 160; Start 11/15/18 at 00:00 Hydralazine HCl (Apresoline) 25 mg Q6 PRN PO PRN SBP > 160 Last administered on 11/19/18 21:38; Admin Dose 25 MG; Start 11/15/18 at 00:00 Famotidine (Pepcid) 20 mg DAILY PO Last administered on 11/28/18 09:00; Admin Dose 20 MG; Start 11/19/18 at 09:00 Sodium Phosphate (Neutra-Phos) 250 mg BID PO Last administered on 11/28/18 09:00; Admin Dose 250 MG; Start 11/21/18 at 09:00 Ascorbic Acid (Vitamin C) 500 mg DAILY PO Last administered on 11/28/18 09:00; Admin Dose 500 MG; Start 11/23/18 at 09:00 Zinc Sulfate (Zinc Sulfate) 220 mg DAILY PO Last administered on 11/28/18 09:00; Admin Dose 220 MG; Start 11/23/18 at 09:00 Multivitamins Therapeutic (Theragran) 1 tab DAILY PO Last administered on 11/28/18 08:59; Admin Dose 1 TAB; Start 11/23/18 at 09:00 Vancomycin HCl (Vanco Iv Per Pharmacy) VANCOMYCIN PER PHARMACY PER PROTOCOL XX ; Start 11/22/18 at 18:30 Loratadine (Claritin) 10 mg DAILY PO Last administered on 11/28/18 09:00; Admin Dose 10 MG; Start 11/22/18 at 20:00 Fluocinonide (Lidex 0.05% Cr) 1 applic BID TOP Last administered on 11/28/18 09:00; Admin Dose 1 APPLIC; Start 11/22/18 at 21:00 Vancomycin HCl 1.25 gm/Sodium Chloride 250 ml @ 83.333 mls/ hr Q24H IVPB Last administered on 11/27/18at 21:05; Admin Dose 83.333 MLS/HR; Start 11/23/18 at 22:00 Risperidone (Risperdal) 0.5 mg BID PO Last administered on 11/28/18at 09:00; Admin Dose 0.5 MG; Start 11/26/18 at 21:00 SALMA HOOKER NP Nov 28, 2018 14:22
[2018-11-28 19:38] VITALS: BP 114/98; PULSE 90; RESP 18
--- NOTE | 2018-11-28 20:53 | PN ---
Date/Time of Note Date/Time of Note DATE: 11/28/18 TIME: 20:52 Assessment/Plan VTE Prophylaxis Risk score (from [facility])>0 risk: 6 SCD applied (from [facility]): Yes SCD contraindicated: other Pharmacological prophylaxis: other Pharm contraindication: other Lines/Catheters IV Catheter Type (from [facility] Mid Line Central line still needed: Yes Urinary Cath still in place: Yes Reason Cath still needed: urinary retention Assessment/Plan Assessment/Plan -Sepsis secondary to urinary tract infection, resolving continue antibiotics. -Dr. Griffiths is following in infection disease consultation. -Alpha hemolytic strep bacteremia, 2D echo with no vegetation -continue Rocephin for 2 weeks per ID recommendations. -Proteus M UTI, continue Rocephin. -Acute metabolic encephalopathy. No evidence of acute intracranial hemorrhage, infarcts, or acute intracranial pathology per CT brain. -Cardiomegaly with ejection fraction of 60% -Mitral stenosis -Hypernatremia, resolved. -Dr. Edwards is following in nephrology consultation. -Acute kidney injury -Thrombocytopenia, resolved -Dr. Herndon is following in hematology consultation. -Dysphagia, continue pureed diet, aspiration precaution. -Multiple stage I pressure ulcers, air mattress, off loading, optimize nutrition. - wound care Placement pending .Further recommendations based on clinical course. Plan of care discussed with Dr. Jin Result Diagram: 11/25/18 0435 11/27/18 0737 Subjective 24 Hr Interval Summary Free Text/Dictation nad sp midline insertion afebrileThrombocytopenia, resolved placement pending no new events reported last night dw staff Eyes: no complaints ENT: no complaints Respiratory: no complaints Cardiovascular: no complaints Gastrointestinal: no complaints Genitourinary: no complaints Musculoskeletal: restricted range of motion Skin: other (skin wund) Neurologic: no complaints Exam/Review of Systems Exam Vitals Vital Signs Date Temp Pulse Resp B/P (MAP) Pulse Ox O2 O2 Flow FiO2 Time Delivery Rate 11/28/18 98.1 90 18 114/98 97 19:38 (103) 11/28/18 Room Air 14:05 Intake and Output 11/27/18 11/27/18 11/28/18 1515:00 23:00 07:00 IntakeIntake Total 440 ml 120 ml 250 ml OutputOutput Total 700 ml BalanceBalance 440 ml -580 ml 250 ml Constitutional: alert, well developed Psych: nl mood/affect Eyes: nl lids, nl sclera ENMT: nl external ears & nose Neck: non-tender Respiratory: clear to auscultation Cardiovascular: nl pulses, other (S1S2) Gastrointestinal: soft, non-tender Musculoskeletal: muscle weakness, range of motion Extremities: normal pulses Neurological: nl speech, other (alert/responsive) Skin: other (decub) Lymph: nontender Medications Medication Current Medications IV Flush (NS 3 ml) 3 ml PER PROTOCOL IV ; Start 11/14/18 at 00:00 Ondansetron HCl (Zofran Inj) 4 mg Q6H PRN IV NAUSEA/VOMITING; Start 11/14/18 at 00:00 Acetaminophen (Tylenol Tab) 650 mg Q6H PRN PO .PAIN 1-3 OR TEMP Last administered on 11/27/18at 16:40; Admin Dose 650 MG; Start 11/14/18 at 00:00 Morphine Sulfate (morphine) 2 mg Q4H PRN IV .PAIN 7-10 Last administered on 11/19/18 06:22; Admin Dose 2 MG; Start 11/14/18 at 00:00 Enoxaparin Sodium (Lovenox) 30 mg DAILY SC Last administered on 11/16/18 08:55; Admin Dose 30 MG; Start 11/14/18 at 09:00; Status Hold Acetaminophen (Tylenol Supp) 650 mg Q6H PRN IN ELEVATED TEMPERATURE Last administered on 11/14/18at 23:33; Admin Dose 650 MG; Start 11/14/18 at 21:30 Clonidine (Catapres) 0.1 mg Q6H PRN PO PRN SBP > 160; Start 11/15/18 at 00:00 Hydralazine HCl (Apresoline) 25 mg Q6 PRN PO PRN SBP > 160 Last administered on 11/19/18at 21:38; Admin Dose 25 MG; Start 11/15/18 at 00:00 Famotidine (Pepcid) 20 mg DAILY PO Last administered on 11/28/18 09:00; Admin Dose 20 MG; Start 11/19/18 at 09:00 Sodium Phosphate (Neutra-Phos) 250 mg BID PO Last administered on 11/28/18 09:00; Admin Dose 250 MG; Start 11/21/18 at 09:00 Ascorbic Acid (Vitamin C) 500 mg DAILY PO Last administered on 11/28/18 09:00; Admin Dose 500 MG; Start 11/23/18 at 09:00 Zinc Sulfate (Zinc Sulfate) 220 mg DAILY PO Last administered on 11/28/18 09:00; Admin Dose 220 MG; Start 11/23/18 at 09:00 Multivitamins Therapeutic (Theragran) 1 tab DAILY PO Last administered on 11/28/18 08:59; Admin Dose 1 TAB; Start 11/23/18 at 09:00 Vancomycin HCl (Vanco Iv Per Pharmacy) VANCOMYCIN PER PHARMACY PER PROTOCOL XX ; Start 11/22/18 at 18:30 Loratadine (Claritin) 10 mg DAILY PO Last administered on 11/28/18 09:00; Admin Dose 10 MG; Start 11/22/18 at 20:00 Fluocinonide (Lidex 0.05% Cr) 1 applic BID TOP Last administered on 11/28/18 09:00; Admin Dose 1 APPLIC; Start 11/22/18 at 21:00 Vancomycin HCl 1.25 gm/Sodium Chloride 250 ml @ 83.333 mls/ hr Q24H IVPB Last administered on 11/27/18 21:05; Admin Dose 83.333 MLS/HR; Start 11/23/18 at 22:00 Risperidone (Risperdal) 0.5 mg BID PO Last administered on 11/28/18 09:00; Admin Dose 0.5 MG; Start 11/26/18 at 21:00 JASEN SOTOMAYOR Nov 28, 2018 20:53
[2018-11-28] MEDS: VANCOMYCIN HCL 1.25 GM in SOD CHLORIDE 0.9% 250 ML IVPB SCH (21:12)
[2018-11-29 01:56] VITALS: BP 137/68; PULSE 110; RESP 20
[2018-11-29 08:00] VITALS: BP 91/55; PULSE 89; RESP 18
[2018-11-29] MEDS: FLUOCINONIDE 0.05% 15 GM CR TOP SCH ×2 (09:06→20:28)
[2018-11-29] MEDS: ASCORBIC ACID 500 MG TAB PO SCH (09:07)
[2018-11-29] MEDS: LORATADINE 10 MG TAB PO SCH (09:07)
[2018-11-29] MEDS: RISPERIDONE 1 MG TAB PO SCH ×2 (09:07→20:26)
[2018-11-29] MEDS: NEUTRA-PHOS 250 MG PACKET PO SCH ×2 (09:07→20:26)
[2018-11-29] MEDS: ZINC SULFATE 220 MG CAP PO SCH (09:07)
[2018-11-29] MEDS: FAMOTIDINE 20 MG TAB PO SCH (09:07)
[2018-11-29] MEDS: MULTIVITAMINS THERAPEUTIC TAB PO SCH (09:07)
[2018-11-29 14:00] VITALS: BP 108/53; PULSE 84; RESP 18
--- NOTE | 2018-11-29 15:23 | CONS ---
Assessment/Plan Assessment/Plan Hospital Course (Demo Recall) Awake, looks comfortable, no fevers Antimicrobials: Vancomycin Microbiology: Urine culture on admission grew Proteus mirabilis, blood culture growing alphahemolytic strep species, repeat blood cultures negative. Allergy: Penicillin Indwelling: Jacobs catheter Physical examination: Chronically ill-appearing elderly woman who looks comfortable. Head atraumatic normocephalic sclera nonicteric. Bugle mucosa dry. Neck is supple, chest rise symmetrical, breath sounds diminished bases. Heart: S1-S2. Abdomen soft bowel sounds present. Extremities without cyanosis. Assessment: 1. Sepsis, present on admission 2. Strep bacteremia likely secondary to pneumonia 3. Dysphasia 4. Acute on chronic encephalopathy 5. Multiple chronic wounds 6. Rash cw allergic, s/p Rocephin and Zosyn Plan: Remains unchanged, repeat cx's neg, continue vancomycin for 2 more days Consultation Date/Type/Reason Admit Date/Time Nov 13, 2018 at 23:15 Initial Consult Date 11/18/18 Type of Consult id Requesting Provider: WALDO CLEARY MD Date/Time of Note DATE: 11/29/18 TIME: 15:23 Exam/Review of Systems Exam Vitals Vital Signs Date Temp Pulse Resp B/P (MAP) Pulse Ox O2 O2 Flow FiO2 Time Delivery Rate 11/29/18 98.0 84 18 108/53 100 Room Air 14:00 (71) Intake and Output 11/28/18 11/28/18 11/29/18 1515:00 23:00 07:00 IntakeIntake Total 360 ml 240 ml 250 ml OutputOutput Total 1200 ml 900 ml BalanceBalance -840 ml -660 ml 250 ml Results Result Diagram: 11/29/18 0546 11/29/18 0546 Results 24hrs Laboratory Tests Test 11/29/18 05:46 White Blood Count 6.8 Red Blood Count 3.53 L Hemoglobin 11.2 L Hematocrit 34.8 L Mean Corpuscular Volume 98.6 Mean Corpuscular Hemoglobin 31.7 Mean Corpuscular Hemoglobin Concent 32.2 Red Cell Distribution Width 13.2 Platelet Count 268 # Mean Platelet Volume 11.9 H Immature Granulocytes % 0.400 Neutrophils % 69.0 Lymphocytes % 22.2 Monocytes % 6.8 Eosinophils % 1.3 Basophils % 0.3 Nucleated Red Blood Cells % 0.0 Immature Granulocytes # 0.030 Neutrophils # 4.7 Lymphocytes # 1.5 Monocytes # 0.5 Eosinophils # 0.1 Basophils # 0.0 Nucleated Red Blood Cells # 0.0 Sodium Level 141 Potassium Level 3.7 Chloride Level 111 H Carbon Dioxide Level 25 Anion Gap 5 Blood Urea Nitrogen 9 Creatinine 0.54 Est Glomerular Filtrat Rate mL/min Glucose Level 111 Calcium Level 9.2 Medications Medication Current Medications IV Flush (NS 3 ml) 3 ml PER PROTOCOL IV ; Start 11/14/18 at 00:00 Ondansetron HCl (Zofran Inj) 4 mg Q6H PRN IV NAUSEA/VOMITING; Start 11/14/18 at 00:00 Acetaminophen (Tylenol Tab) 650 mg Q6H PRN PO .PAIN 1-3 OR TEMP Last administered on 11/27/18at 16:40; Admin Dose 650 MG; Start 11/14/18 at 00:00 Morphine Sulfate (morphine) 2 mg Q4H PRN IV .PAIN 7-10 Last administered on 11/19/18 06:22; Admin Dose 2 MG; Start 11/14/18 at 00:00 Enoxaparin Sodium (Lovenox) 30 mg DAILY SC Last administered on 11/16/18at 08:55; Admin Dose 30 MG; Start 11/14/18 at 09:00; Status Hold Acetaminophen (Tylenol Supp) 650 mg Q6H PRN [place] ELEVATED TEMPERATURE Last administered on 11/14/18at 23:33; Admin Dose 650 MG; Start 11/14/18 at 21:30 Clonidine (Catapres) 0.1 mg Q6H PRN PO PRN SBP > 160; Start 11/15/18 at 00:00 Hydralazine HCl (Apresoline) 25 mg Q6 PRN PO PRN SBP > 160 Last administered on 11/19/18at 21:38; Admin Dose 25 MG; Start 11/15/18 at 00:00 Famotidine (Pepcid) 20 mg DAILY PO Last administered on 11/29/18 09:07; Admin Dose 20 MG; Start 11/19/18 at 09:00 Sodium Phosphate (Neutra-Phos) 250 mg BID PO Last administered on 11/29/18 09:07; Admin Dose 250 MG; Start 11/21/18 at 09:00 Ascorbic Acid (Vitamin C) 500 mg DAILY PO Last administered on 11/29/18 09:07; Admin Dose 500 MG; Start 11/23/18 at 09:00 Zinc Sulfate (Zinc Sulfate) 220 mg DAILY PO Last administered on 11/29/18 09:07; Admin Dose 220 MG; Start 11/23/18 at 09:00 Multivitamins Therapeutic (Theragran) 1 tab DAILY PO Last administered on 11/29/18 09:07; Admin Dose 1 TAB; Start 11/23/18 at 09:00 Vancomycin HCl (Vanco Iv Per Pharmacy) VANCOMYCIN PER PHARMACY PER PROTOCOL XX ; Start 11/22/18 at 18:30 Loratadine (Claritin) 10 mg DAILY PO Last administered on 11/29/18 09:07; Admin Dose 10 MG; Start 11/22/18 at 20:00 Fluocinonide (Lidex 0.05% Cr) 1 applic BID TOP Last administered on 11/29/18 09:06; Admin Dose 1 APPLIC; Start 11/22/18 at 21:00 Vancomycin HCl 1.25 gm/Sodium Chloride 250 ml @ 83.333 mls/ hr Q24H IVPB Last administered on 11/28/18 21:12; Admin Dose 83.333 MLS/HR; Start 11/23/18 at 22:00 Risperidone (Risperdal) 0.5 mg BID PO Last administered on 11/29/18 09:07; Admin Dose 0.5 MG; Start 11/26/18 at 21:00 Miscellaneous Information (*Rx Drug Level Order Reminder*) VANCO TROUGH @ 2,100 2100 ONCE XX ; Start 11/29/18 at 21:00; Stop 11/29/18 at 21:01 SALMA HOOKER NP Nov 29, 2018 15:23
--- NOTE | 2018-11-29 17:25 | PN ---
Date/Time of Note Date/Time of Note DATE: 11/29/18 TIME: 17:25 Assessment/Plan VTE Prophylaxis Risk score (from [facility] [place] risk: 8 SCD applied (from [facility] [place] Yes SCD contraindicated: other Pharmacological prophylaxis: other Pharm contraindication: other Lines/Catheters [facility]from [facility] Mid Line Central line still needed: Yes Urinary Cath still in place: Yes Reason Cath still needed: urinary retention Assessment/Plan Assessment/Plan -Sepsis secondary to urinary tract infection, resolving continue antibiotics. -Dr. Griffiths is following in infection disease consultation. -Alpha hemolytic strep bacteremia, 2D echo with no vegetation -continue Rocephin for 2 weeks per ID recommendations. -Proteus M UTI, continue Rocephin. -Acute metabolic encephalopathy. No evidence of acute intracranial hemorrhage, infarcts, or acute intracranial pathology per CT brain. -Cardiomegaly with ejection fraction of 60% -Mitral stenosis -Hypernatremia, resolved. -Dr. Edwards is following in nephrology consultation. -Acute kidney injury -Thrombocytopenia, resolved -Dr. Herndon is following in hematology consultation. -Dysphagia, continue pureed diet, aspiration precaution. -Multiple stage I pressure ulcers, air mattress, off loading, optimize nutrition. - wound care Placement pending .Further recommendations based on clinical course. Plan of care discussed with Dr. Jin Result Diagram: 11/29/18 0546 11/29/18 0546 Results 24hrs Laboratory Tests Test 11/29/18 05:46 White Blood Count 6.8 Red Blood Count 3.53 L Hemoglobin 11.2 L Hematocrit 34.8 L Mean Corpuscular Volume 98.6 Mean Corpuscular Hemoglobin 31.7 Mean Corpuscular Hemoglobin Concent 32.2 Red Cell Distribution Width 13.2 Platelet Count 268 # Mean Platelet Volume 11.9 H Immature Granulocytes % 0.400 Neutrophils % 69.0 Lymphocytes % 22.2 Monocytes % 6.8 Eosinophils % 1.3 Basophils % 0.3 Nucleated Red Blood Cells % 0.0 Immature Granulocytes # 0.030 Neutrophils # 4.7 Lymphocytes # 1.5 Monocytes # 0.5 Eosinophils # 0.1 Basophils # 0.0 Nucleated Red Blood Cells # 0.0 Sodium Level 141 Potassium Level 3.7 Chloride Level 111 H Carbon Dioxide Level 25 Anion Gap 5 Blood Urea Nitrogen 9 Creatinine 0.54 Est Glomerular Filtrat Rate mL/min Glucose Level 111 Calcium Level 9.2 Subjective 24 Hr Interval Summary Free Text/Dictation NAD afebrile resting in bed denies any pain Thrombocytopenia, resolved placement pending cont wound care no new events reported last night Eyes: no complaints ENT: no complaints Respiratory: no complaints Cardiovascular: no complaints Gastrointestinal: no complaints Genitourinary: no complaints Musculoskeletal: restricted range of motion Skin: other (skin wounds) Neurologic: no complaints Endocrine: no complaints Psychological: nl mood/affect Exam/Review of Systems Exam Vitals Vital Signs Date Temp Pulse Resp B/P (MAP) Pulse Ox O2 O2 Flow FiO2 Time Delivery Rate 11/29/18 98.0 84 18 108/53 100 Room Air 14:00 (71) Intake and Output 11/28/18 11/28/18 11/29/18 1515:00 23:00 07:00 IntakeIntake Total 360 ml 240 ml 250 ml OutputOutput Total 1200 ml 900 ml BalanceBalance -840 ml -660 ml 250 ml Constitutional: alert, well developed Psych: nl mood/affect Eyes: nl lids, nl sclera ENMT: nl external ears & nose Neck: non-tender Respiratory: clear to auscultation Cardiovascular: nl pulses, other (ss2) Gastrointestinal: soft, non-tender Musculoskeletal: muscle weakness, range of motion Extremities: normal pulses Neurological: nl speech, other (alert/reponsive) Skin: other (skin wounds) Lymph: nontender Results Results 24hrs Laboratory Tests Test 11/29/18 05:46 White Blood Count 6.8 Red Blood Count 3.53 L Hemoglobin 11.2 L Hematocrit 34.8 L Mean Corpuscular Volume 98.6 Mean Corpuscular Hemoglobin 31.7 Mean Corpuscular Hemoglobin Concent 32.2 Red Cell Distribution Width 13.2 Platelet Count 268 # Mean Platelet Volume 11.9 H Immature Granulocytes % 0.400 Neutrophils % 69.0 Lymphocytes % 22.2 Monocytes % 6.8 Eosinophils % 1.3 Basophils % 0.3 Nucleated Red Blood Cells % 0.0 Immature Granulocytes # 0.030 Neutrophils # 4.7 Lymphocytes # 1.5 Monocytes # 0.5 Eosinophils # 0.1 Basophils # 0.0 Nucleated Red Blood Cells # 0.0 Sodium Level 141 Potassium Level 3.7 Chloride Level 111 H Carbon Dioxide Level 25 Anion Gap 5 Blood Urea Nitrogen 9 Creatinine 0.54 Est Glomerular Filtrat Rate mL/min Glucose Level 111 Calcium Level 9.2 Medications Medication Current Medications IV Flush (NS 3 ml) 3 ml PER PROTOCOL IV ; Start 11/14/18 at 00:00 Ondansetron HCl (Zofran Inj) 4 mg Q6H PRN IV NAUSEA/VOMITING; Start 11/14/18 at 00:00 Acetaminophen (Tylenol Tab) 650 mg Q6H PRN PO .PAIN 1-3 OR TEMP Last administered on 11/27/18 16:40; Admin Dose 650 MG; Start 11/14/18 at 00:00 Morphine Sulfate (morphine) 2 mg Q4H PRN IV .PAIN 7-10 Last administered on 11/19/18 06:22; Admin Dose 2 MG; Start 11/14/18 at 00:00 Enoxaparin Sodium (Lovenox) 30 mg DAILY SC Last administered on 11/16/18 08:55; Admin Dose 30 MG; Start 11/14/18 at 09:00; Status Hold Acetaminophen (Tylenol Supp) 650 mg Q6H PRN [place] ELEVATED TEMPERATURE Last administered on 11/14/18 23:33; Admin Dose 650 MG; Start 11/14/18 at 21:30 Clonidine (Catapres) 0.1 mg Q6H PRN PO PRN SBP > 160; Start 11/15/18 at 00:00 Hydralazine HCl (Apresoline) 25 mg Q6 PRN PO PRN SBP > 160 Last administered on 11/19/18 21:38; Admin Dose 25 MG; Start 11/15/18 at 00:00 Famotidine (Pepcid) 20 mg DAILY PO Last administered on 11/29/18 09:07; Admin Dose 20 MG; Start 11/19/18 at 09:00 Sodium Phosphate (Neutra-Phos) 250 mg BID PO Last administered on 11/29/18 09:07; Admin Dose 250 MG; Start 11/21/18 at 09:00 Ascorbic Acid (Vitamin C) 500 mg DAILY PO Last administered on 11/29/18 09:07; Admin Dose 500 MG; Start 11/23/18 at 09:00 Zinc Sulfate (Zinc Sulfate) 220 mg DAILY PO Last administered on 11/29/18 09:07; Admin Dose 220 MG; Start 11/23/18 at 09:00 Multivitamins Therapeutic (Theragran) 1 tab DAILY PO Last administered on 11/29/18 09:07; Admin Dose 1 TAB; Start 11/23/18 at 09:00 Vancomycin HCl (Vanco Iv Per Pharmacy) VANCOMYCIN PER PHARMACY PER PROTOCOL XX ; Start 11/22/18 at 18:30; Stop 12/02/18 at 06:00 Loratadine (Claritin) 10 mg DAILY PO Last administered on 11/29/18 09:07; Admin Dose 10 MG; Start 11/22/18 at 20:00 Fluocinonide (Lidex 0.05% Cr) 1 applic BID TOP Last administered on 11/29/18 09:06; Admin Dose 1 APPLIC; Start 11/22/18 at 21:00 Vancomycin HCl 1.25 gm/Sodium Chloride 250 ml @ 83.333 mls/ hr Q24H IVPB Last administered on 11/28/18 21:12; Admin Dose 83.333 MLS/HR; Start 11/23/18 at 22:00; Stop 12/02/18 at 06:00 Risperidone (Risperdal) 0.5 mg BID PO Last administered on 11/29/18 09:07; Admin Dose 0.5 MG; Start 11/26/18 at 21:00 Miscellaneous Information (*Rx Drug Level Order Reminder*) VANCO TROUGH @ 2,100 2100 ONCE XX ; Start 11/29/18 at 21:00; Stop 11/29/18 at 21:01 JASEN SOTOMAYOR Nov 29, 2018 17:25
[2018-11-29] MEDS: morphine 2 MG INJ IV PRN ×2 (18:07→23:53)
[2018-11-29 19:30] VITALS: BP 136/59; PULSE 85; RESP 18
[2018-11-29] MEDS: VANCOMYCIN HCL 1.25 GM in SOD CHLORIDE 0.9% 250 ML IVPB SCH (22:38)
[2018-11-30 01:30] VITALS: BP 132/61; PULSE 81; RESP 16
[2018-11-30] MEDS: morphine 2 MG INJ IV PRN ×2 (03:59→09:16)
[2018-11-30 07:49] VITALS: BP 138/76; PULSE 81; RESP 18
[2018-11-30] MEDS: LORATADINE 10 MG TAB PO SCH (09:17)
[2018-11-30] MEDS: ASCORBIC ACID 500 MG TAB PO SCH (09:17)
[2018-11-30] MEDS: NEUTRA-PHOS 250 MG PACKET PO SCH ×2 (09:17→20:57)
[2018-11-30] MEDS: RISPERIDONE 1 MG TAB PO SCH ×2 (09:17→20:57)
[2018-11-30] MEDS: ZINC SULFATE 220 MG CAP PO SCH (09:17)
[2018-11-30] MEDS: FAMOTIDINE 20 MG TAB PO SCH (09:17)
[2018-11-30] MEDS: MULTIVITAMINS THERAPEUTIC TAB PO SCH (09:17)
[2018-11-30] MEDS: FLUOCINONIDE 0.05% 15 GM CR TOP SCH ×2 (09:18→20:57)
[2018-11-30] MEDS: ACETAMINOPHEN 325 MG TAB PO PRN (13:28)
[2018-11-30 14:00] VITALS: BP 116/76; PULSE 82; RESP 18
--- NOTE | 2018-11-30 18:42 | PN ---
Date/Time of Note Date/Time of Note DATE: 11/30/18 TIME: 18:41 Assessment/Plan VTE Prophylaxis Risk score (from [facility]0 risk: 8 [place] [facility] [place] SCD contraindicated: other Pharmacological prophylaxis: other Pharm contraindication: other Lines/Catheters IV C[facility] Type (from [facility]): Mid Line Central line still needed: Yes Urinary Cath still in place: Yes Reason Cath still needed: urinary retention Assessment/Plan Assessment/Plan -Sepsis secondary to urinary tract infection, resolving continue antibiotics. Dr. Griffiths is following in infection disease consultation. -Alpha hemolytic strep bacteremia, 2D echo with no vegetation, continue Rocephin for 2 weeks per ID recommendations. -Proteus M UTI, continue Rocephin. -Acute metabolic encephalopathy. No evidence of acute intracranial hemorrhage, infarcts, or acute intracranial pathology per CT brain. -Cardiomegaly with ejection fraction of 60% -Mitral stenosis -Hypernatremia, resolved. Dr. Edwards is following in nephrology consultation. -Acute kidney injury -Thrombocytopenia, resolving. Dr. Herndon is following in hematology consultation. -Dysphagia, continue pureed diet, aspiration precaution. -Multiple stage I pressure ulcers, air mattress, off loading, optimize nutrition. Further recommendations based on clinical course. Plan of care discussed with Dr. Jin Result Diagram: 11/29/1846 11/29/18 0546 Results 24hrs Laboratory Tests Test 11/29/18 21:02 Vancomycin Level Trough 15.0 Subjective 24 Hr Interval Summary Constitutional: requiring O2 Eyes: no complaints ENT: no complaints Respiratory: no complaints Musculoskeletal: restricted range of motion Skin: other (decub) Neurologic: no complaints Immunologic: no complaints Exam/Review of Systems Exam Vitals Vital Signs Date Temp Pulse Resp B/P (MAP) Pulse Ox O2 O2 Flow FiO2 Time Delivery Rate 11/30/18 98.4 82 18 116/76 97 14:00 (89) 11/29/18 Room Air 14:00 Intake and Output 11/29/18 11/29/18 11/30/18 1515:00 23:00 07:00 IntakeIntake Total 440 ml 220 ml 250 ml BalanceBalance 440 ml 220 ml 250 ml Constitutional: alert, well developed, obese Psych: nl mood/affect Eyes: nl sclera ENMT: nl external ears & nose Neck: non-tender Respiratory: clear to auscultation Cardiovascular: nl pulses, other Gastrointestinal: soft, non-tender Musculoskeletal: muscle weakness Extremities: normal pulses Neurological: nl speech, other (alert/responsive) Skin: other (decubs) Lymph: nontender Results Results 24hrs Laboratory Tests Test 11/29/18 21:02 Vancomycin Level Trough 15.0 Medications Medication Current Medications IV Flush (NS 3 ml) 3 ml PER PROTOCOL IV ; Start 11/14/18 at 00:00 Ondansetron HCl (Zofran Inj) 4 mg Q6H PRN IV NAUSEA/VOMITING; Start 11/14/18 at 00:00 Acetaminophen (Tylenol Tab) 650 mg Q6H PRN PO .PAIN 1-3 OR TEMP Last administered on 11/30/18 13:28; Admin Dose 650 MG; Start 11/14/18 at 00:00 Morphine Sulfate (morphine) 2 mg Q4H PRN IV .PAIN 7-10 Last administered on 09:16; Admin Dose 2 MG; Start 11/14/18 at 00:00 Enoxaparin Sodium (Lovenox) 30 mg DAILY SC Last administered on 11/16/18 08:55; Admin Dose 30 MG; Start 11/14/18 at 09:00; Status Hold Acetaminophen (Tylenol Supp) 650 mg Q6H PRN [place] ELEVATED TEMPERATURE Last administered on 11/14/18 23:33; Admin Dose 650 MG; Start 11/14/18 at 21:30 Clonidine (Catapres) 0.1 mg Q6H PRN PO PRN SBP > 160; Start 11/15/18 at 00:00 Hydralazine HCl (Apresoline) 25 mg Q6 PRN PO PRN SBP > 160 Last administered on 11/19/18 21:38; Admin Dose 25 MG; Start 11/15/18 at 00:00 Famotidine (Pepcid) 20 mg DAILY PO Last administered on 11/30/18 09:17; Admin Dose 20 MG; Start 11/19/18 at 09:00 Sodium Phosphate (Neutra-Phos) 250 mg BID PO Last administered on 11/30/18 09:17; Admin Dose 250 MG; Start 11/21/18 at 09:00 Ascorbic Acid (Vitamin C) 500 mg DAILY PO Last administered on 11/30/18 09:17; Admin Dose 500 MG; Start 11/23/18 at 09:00 Zinc Sulfate (Zinc Sulfate) 220 mg DAILY PO Last administered on 11/30/18 09:17; Admin Dose 220 MG; Start 11/23/18 at 09:00 Multivitamins Therapeutic (Theragran) 1 tab DAILY PO Last administered on 11/30/18 09:17; Admin Dose 1 TAB; Start 11/23/18 at 09:00 Vancomycin HCl (Vanco Iv Per Pharmacy) VANCOMYCIN PER PHARMACY PER PROTOCOL XX ; Start 11/22/18 at 18:30; Stop 12/02/18 at 06:00 Loratadine (Claritin) 10 mg DAILY PO Last administered on 11/30/18 09:17; Admin Dose 10 MG; Start 11/22/18 at 20:00 Fluocinonide (Lidex 0.05% Cr) 1 applic BID TOP Last administered on 11/30/18 09:18; Admin Dose 1 APPLIC; Start 11/22/18 at 21:00 Vancomycin HCl 1.25 gm/Sodium Chloride 250 ml @ 83.333 mls/ hr Q24H IVPB Last administered on 11/29/18 22:38; Admin Dose 83.333 MLS/HR; Start 11/23/18 at 22:00; Stop 12/02/18 at 06:00 Risperidone (Risperdal) 0.5 mg BID PO Last administered on 11/30/18 09:17; Admin Dose 0.5 MG; Start 11/26/18 at 21:00 JASEN SOTOMAYOR Nov 30, 2018 18:42
[2018-11-30 20:30] VITALS: BP 137/62; PULSE 99; RESP 18
[2018-11-30] MEDS: VANCOMYCIN HCL 1.25 GM in SOD CHLORIDE 0.9% 250 ML IVPB SCH (21:21)
[2018-12-01 02:28] VITALS: BP 149/67; PULSE 98; RESP 18
[2018-12-01 07:15] VITALS: BP 151/70; PULSE 90; RESP 18
[2018-12-01] MEDS: MULTIVITAMINS THERAPEUTIC TAB PO SCH (10:05)
[2018-12-01] MEDS: ASCORBIC ACID 500 MG TAB PO SCH (10:05)
[2018-12-01] MEDS: ZINC SULFATE 220 MG CAP PO SCH (10:05)
[2018-12-01] MEDS: RISPERIDONE 1 MG TAB PO SCH ×2 (10:05→21:46)
[2018-12-01] MEDS: NEUTRA-PHOS 250 MG PACKET PO SCH ×2 (10:05→21:46)
[2018-12-01] MEDS: FLUOCINONIDE 0.05% 15 GM CR TOP SCH ×2 (10:06→21:48)
[2018-12-01] MEDS: LORATADINE 10 MG TAB PO SCH (10:06)
[2018-12-01] MEDS: FAMOTIDINE 20 MG TAB PO SCH (10:06)
[2018-12-01] MEDS: ACETAMINOPHEN 325 MG TAB PO PRN ×2 (10:19→21:46)
--- NOTE | 2018-12-01 13:06 | PN ---
Date/Time of Note Date/Time of Note DATE: 12/01/18 TIME: 13:04 Assessment/Plan VTE Prophylaxis Risk score (from [facility] [place])>0 risk: 9 SCD applied (from [facility] [place]): Yes SCD contraindicated: other Pharmacological prophylaxis: other Pharm contraindication: other Lines/Catheters [facility] C[facility]ter Type (from [facility] Mid Line Urinary Cath still in place: Yes Reason Cath still needed: urinary retention Assessment/Plan Assessment/Plan -Sepsis secondary to urinary tract infection, resolving continue antibiotics. Dr. Griffiths is following in infection disease consultation. -Alpha hemolytic strep bacteremia, 2D echo with no vegetation, continue Rocephin for 2 weeks per ID recommendations. -Proteus M UTI, continue Rocephin. -Acute metabolic encephalopathy. No evidence of acute intracranial hemorrhage, infarcts, or acute intracranial pathology per CT brain. -Cardiomegaly with ejection fraction of 60% -Mitral stenosis -Hypernatremia, resolved. Dr. Edwards is following in nephrology consultation. -Acute kidney injury -Thrombocytopenia, resolving. Dr. Herndon is following in hematology consultation. -Dysphagia, continue pureed diet, aspiration precaution. -Multiple stage I pressure ulcers, air mattress, off loading, optimize nutrition. Further recommendations based on clinical course. Plan of care discussed with Dr. Jin Result Diagram: 11/29/18 0546 11/29/18 0546 Subjective 24 Hr Interval Summary Free Text/Dictation Placement pending Respiratory: no complaints Cardiovascular: no complaints Gastrointestinal: no complaints Genitourinary: no complaints Musculoskeletal: other (general weakness) Skin: no complaints Neurologic: no complaints Lymphatic: no complaints Psychological: nl mood/affect Exam/Review of Systems Exam Vitals Vital Signs Date Temp Pulse Resp B/P (MAP) Pulse Ox O2 O2 Flow FiO2 Time Delivery Rate 12/01/18 98.6 90 18 151/70 97 Room Air 07:15 (97) Intake and Output 11/30/18 11/30/18 12/01/18 1515:00 23:00 07:00 IntakeIntake Total 360 ml 240 ml 550 ml OutputOutput Total 300 ml 300 ml 1000 ml BalanceBalance 60 ml -60 ml -450 ml Constitutional: alert, well developed Psych: nl mood/affect Head: atraumatic Eyes: nl lids, nl sclera ENMT: nl external ears & nose Neck: non-tender Respiratory: clear to auscultation Cardiovascular: nl pulses, other (s1s2) Gastrointestinal: soft, non-tender Extremities: normal pulses Neurological: nl speech, other (alert/reponsive) Lymph: nontender Medications Medication Current Medications IV Flush (NS 3 ml) 3 ml PER PROTOCOL IV ; Start 11/14/18 at 00:00 Ondansetron HCl (Zofran Inj) 4 mg Q6H PRN IV NAUSEA/VOMITING; Start 11/14/18 at 00:00 Acetaminophen (Tylenol Tab) 650 mg Q6H PRN PO .PAIN 1-3 OR TEMP Last administered on 12/01/18 10:19; Admin Dose 650 MG; Start 11/14/18 at 00:00 Morphine Sulfate (morphine) 2 mg Q4H PRN IV .PAIN 7-10 Last administered on 11/30/18 09:16; Admin Dose 2 MG; Start 11/14/18 at 00:00 Enoxaparin Sodium (Lovenox) 30 mg DAILY SC Last administered on 11/16/18 08:55; Admin Dose 30 MG; Start 11/14/18 at 09:00; Status Hold Acetaminophen (Tylenol Supp) 650 mg Q6H PRN [place] ELEVATED TEMPERATURE Last administered on 11/14/18at 23:33; Admin Dose 650 MG; Start 11/14/18 at 21:30 Clonidine (Catapres) 0.1 mg Q6H PRN PO PRN SBP > 160; Start 11/15/18 at 00:00 Hydralazine HCl (Apresoline) 25 mg Q6 PRN PO PRN SBP > 160 Last administered on 11/19/18at 21:38; Admin Dose 25 MG; Start 11/15/18 at 00:00 Famotidine (Pepcid) 20 mg DAILY PO Last administered on 12/01/18 10:06; Admin Dose 20 MG; Start 11/19/18 at 09:00 Sodium Phosphate (Neutra-Phos) 250 mg BID PO Last administered on 12/01/18 10:05; Admin Dose 250 MG; Start 11/21/18 at 09:00 Ascorbic Acid (Vitamin C) 500 mg DAILY PO Last administered on 12/01/18 10:05; Admin Dose 500 MG; Start 11/23/18 at 09:00 Zinc Sulfate (Zinc Sulfate) 220 mg DAILY PO Last administered on 12/01/18 10:05; Admin Dose 220 MG; Start 11/23/18 at 09:00 Multivitamins Therapeutic (Theragran) 1 tab DAILY PO Last administered on 12/01/18 10:05; Admin Dose 1 TAB; Start 11/23/18 at 09:00 Vancomycin HCl (Vanco Iv Per Pharmacy) VANCOMYCIN PER PHARMACY PER PROTOCOL XX ; Start 11/22/18 at 18:30; Stop 12/02/18 at 06:00 Loratadine (Claritin) 10 mg DAILY PO Last administered on 12/01/18 10:06; Admin Dose 10 MG; Start 11/22/18 at 20:00 Fluocinonide (Lidex 0.05% Cr) 1 applic BID TOP Last administered on 12/01/18 10:06; Admin Dose 1 APPLIC; Start 11/22/18 at 21:00 Vancomycin HCl 1.25 gm/Sodium Chloride 250 ml @ 83.333 mls/ hr Q24H IVPB Last administered on 11/30/18 21:21; Admin Dose 83.333 MLS/HR; Start 11/23/18 at 22:00; Stop 12/02/18 at 06:00 Risperidone (Risperdal) 0.5 mg BID PO Last administered on 12/01/18 10:05; Admin Dose 0.5 MG; Start 11/26/18 at 21:00 JASEN SOTOMAYOR Dec 01, 2018 13:06
[2018-12-01 19:55] VITALS: BP 139/89; PULSE 95; RESP 20
[2018-12-01] MEDS: VANCOMYCIN HCL 1.25 GM in SOD CHLORIDE 0.9% 250 ML IVPB SCH (21:47)
[2018-12-02 01:38] VITALS: BP 137/79; PULSE 91; RESP 20
[2018-12-02] MEDS: morphine 2 MG INJ IV PRN ×3 (02:42→17:44)
[2018-12-02 07:19] VITALS: BP 109/58; PULSE 72; RESP 16
[2018-12-02] MEDS: ZINC SULFATE 220 MG CAP PO SCH (09:01)
[2018-12-02] MEDS: FAMOTIDINE 20 MG TAB PO SCH (09:01)
[2018-12-02] MEDS: RISPERIDONE 1 MG TAB PO SCH ×2 (09:01→20:47)
[2018-12-02] MEDS: NEUTRA-PHOS 250 MG PACKET PO SCH ×2 (09:01→20:47)
[2018-12-02] MEDS: LORATADINE 10 MG TAB PO SCH (09:01)
[2018-12-02] MEDS: MULTIVITAMINS THERAPEUTIC TAB PO SCH (09:01)
[2018-12-02] MEDS: ASCORBIC ACID 500 MG TAB PO SCH (09:01)
[2018-12-02] MEDS: FLUOCINONIDE 0.05% 15 GM CR TOP SCH ×2 (09:02→20:49)
--- NOTE | 2018-12-02 11:39 | CONS ---
Assessment/Plan Assessment/Plan Hospital Course (Demo Recall) #Thrombocytopenia -platelets are improving and are now stable and> 200K -this was likely 2/2 sepsis which has improved - DIC unlikely given the normal fibrinogen -TTP unlikely given normal LDH - abdominal ultrasound demonstrates fatty liver -HIV hepatitis are negative #Sepsis -2/2 urosepsis and HCAP -now off antibiotics #ARF -management per nephrology. 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 #History of peripheral vascular disease and abdominal aortic aneurysm - status post endovascular abdominal aortic repair and status post aortobi-iliac endograft placement. Thank you for the opportunity to participate in this patients care A total of 40 minutes of face to face time was spent speaking with the patient, of which greater than 50% was spent in counseling and coordination of care and the detailed question and answer session. Consultation Date/Type/Reason Admit Date/Time Nov 13, 2018 at 23:15 Initial Consult Date 11/18/18 Type of Consult Hematology Reason for Consultation thrombocytopenia Requesting Provider: WALDO CLEARY MD Date/Time of Note DATE: 12/02/18 TIME: 11:36 24 HR Interval Summary Free Text/Dictation currently off antibiotics at this time Exam/Review of Systems Exam Vitals Vital Signs Date Temp Pulse Resp B/P (MAP) Pulse Ox O2 O2 Flow FiO2 Time Delivery Rate 12/02/18 97.5 72 16 109/58 97 Room Air 07:19 (75) Intake and Output 12/01/18 12/01/18 12/02/18 1515:00 23:00 07:00 IntakeIntake Total 120 ml 120 ml 250 ml OutputOutput Total 550 ml 600 ml BalanceBalance 120 ml -430 ml -350 ml Constitutional: non-verbal, frail Psych: confusion Head: normocephalic Eyes: nl conjunctiva ENMT: nl external ears & nose Neck: supple Respiratory: clear to auscultation Cardiovascular: regular rate and rhythm Gastrointestinal: soft Musculoskeletal: nl extremities to inspection Results Result Diagram: 12/02/18 0534 12/02/18 0534 Results 24hrs Laboratory Tests Test 12/01/18 14:04 12/02/18 05:34 White Blood Count 6.6 5.9 Red Blood Count 3.47 L 3.56 L Hemoglobin 11.2 L 11.3 L Hematocrit 34.6 L 35.4 L Mean Corpuscular Volume 99.7 99.4 Mean Corpuscular Hemoglobin 32.3 31.7 Mean Corpuscular Hemoglobin Concent 32.4 31.9 L Red Cell Distribution Width 13.0 13.1 Platelet Count 314 323 Mean Platelet Volume 10.8 H 10.7 H Immature Granulocytes % 0.500 H 0.500 H Neutrophils % 65.9 48.8 Lymphocytes % 23.4 38.5 Monocytes % 6.8 7.3 Eosinophils % 2.9 4.2 Basophils % 0.5 0.7 Nucleated Red Blood Cells % 0.0 0.0 Immature Granulocytes # 0.030 0.030 Neutrophils # 4.4 2.9 Lymphocytes # 1.5 2.3 Monocytes # 0.5 0.4 Eosinophils # 0.2 0.3 Basophils # 0.0 0.0 Nucleated Red Blood Cells # 0.0 0.0 Sodium Level 141 140 Potassium Level 4.2 3.9 Chloride Level 108 107 Carbon Dioxide Level 28 29 Anion Gap 5 4 L Blood Urea Nitrogen 10 11 Creatinine 0.53 0.62 Est Glomerular Filtrat Rate mL/min Glucose Level 137 106 Calcium Level 9.2 9.4 Medications Medication Current Medications IV Flush (NS 3 ml) 3 ml PER PROTOCOL IV ; Start 11/14/18 at 00:00 Ondansetron HCl (Zofran Inj) 4 mg Q6H PRN IV NAUSEA/VOMITING; Start 11/14/18 at 00:00 Acetaminophen (Tylenol Tab) 650 mg Q6H PRN PO .PAIN 1-3 OR TEMP Last administered on 12/01/18at 21:46; Admin Dose 650 MG; Start 11/14/18 at 00:00 Morphine Sulfate (morphine) 2 mg Q4H PRN IV .PAIN 7-10 Last administered on 12/02/18at 02:42; Admin Dose 2 MG; Start 11/14/18 at 00:00 Enoxaparin Sodium (Lovenox) 30 mg DAILY SC Last administered on 11/16/18at 08:55; Admin Dose 30 MG; Start 11/14/18 at 09:00; Status Hold Acetaminophen (Tylenol Supp) 650 mg Q6H PRN [place] ELEVATED TEMPERATURE Last administered on 11/14/18at 23:33; Admin Dose 650 MG; Start 11/14/18 at 21:30 Clonidine (Catapres) 0.1 mg Q6H PRN PO PRN SBP > 160; Start 11/15/18 at 00:00 Hydralazine HCl (Apresoline) 25 mg Q6 PRN PO PRN SBP > 160 Last administered on 11/19/18 21:38; Admin Dose 25 MG; Start 11/15/18 at 00:00 Famotidine (Pepcid) 20 mg DAILY PO Last administered on 12/02/18 09:01; Admin Dose 20 MG; Start 11/19/18 at 09:00 Sodium Phosphate (Neutra-Phos) 250 mg BID PO Last administered on 12/02/18 09:01; Admin Dose 250 MG; Start 11/21/18 at 09:00 Ascorbic Acid (Vitamin C) 500 mg DAILY PO Last administered on 12/02/18 09:01; Admin Dose 500 MG; Start 11/23/18 at 09:00 Zinc Sulfate (Zinc Sulfate) 220 mg DAILY PO Last administered on 12/02/18 09:01; Admin Dose 220 MG; Start 11/23/18 at 09:00 Multivitamins Therapeutic (Theragran) 1 tab DAILY PO Last administered on 12/02/18 09:01; Admin Dose 1 TAB; Start 11/23/18 at 09:00 Loratadine (Claritin) 10 mg DAILY PO Last administered on 12/02/18 09:01; Admin Dose 10 MG; Start 11/22/18 at 20:00 Fluocinonide (Lidex 0.05% Cr) 1 applic BID TOP Last administered on 12/02/18 09:02; Admin Dose 1 APPLIC; Start 11/22/18 at 21:00 Risperidone (Risperdal) 0.5 mg BID PO Last administered on 12/02/18 09:01; Admin Dose 0.5 MG; Start 11/26/18 at 21:00 ALYSIA JIM M.D. Dec 02, 2018 11:39
[2018-12-02 13:59] VITALS: BP 107/54; PULSE 79; RESP 15
--- NOTE | 2018-12-02 19:21 | PN ---
Date/Time of Note Date/Time of Note DATE: 12/02/18 TIME: 19:19 Assessment/Plan VTE Prophylaxis Risk score (from [facility] [place]0 risk: 8 SCD applied (from [facility] [place]): Yes SCD contraindicated: other Pharmacological prophylaxis: other Pharm contraindication: other Lines/Catheters IV Catheter Type (from [facility]): Saline Lock Urinary Cath still in place: Yes Reason Cath still needed: urinary retention Assessment/Plan Assessment/Plan -Sepsis secondary to urinary tract infection, resolving continue antibiotics. Dr. Griffiths is following in infection disease consultation. -Alpha hemolytic strep bacteremia, 2D echo with no vegetation, continue Rocephin for 2 weeks per ID recommendations. -Proteus M UTI, continue Rocephin. -Acute metabolic encephalopathy. No evidence of acute intracranial hemorrhage, infarcts, or acute intracranial pathology per CT brain. -Cardiomegaly with ejection fraction of 60% -Mitral stenosis -Hypernatremia, resolved. Dr. Edwards is following in nephrology consultation. -Acute kidney injury -Thrombocytopenia, resolving. Dr. Herndon is following in hematology consultation. -Dysphagia, continue pureed diet, aspiration precaution. -Multiple stage I pressure ulcers, air mattress, off loading, optimize nutrition. Further recommendations based on clinical course. Plan of care discussed with Dr. Jin Result Diagram: 12/02/18 0534 12/02/18 0534 Results 24hrs Laboratory Tests Test 12/02/18 05:34 White Blood Count 5.9 Red Blood Count 3.56 L Hemoglobin 11.3 L Hematocrit 35.4 L Mean Corpuscular Volume 99.4 Mean Corpuscular Hemoglobin 31.7 Mean Corpuscular Hemoglobin Concent 31.9 L Red Cell Distribution Width 13.1 Platelet Count 323 Mean Platelet Volume 10.7 H Immature Granulocytes % 0.500 H Neutrophils % 48.8 Lymphocytes % 38.5 Monocytes % 7.3 Eosinophils % 4.2 Basophils % 0.7 Nucleated Red Blood Cells % 0.0 Immature Granulocytes # 0.030 Neutrophils # 2.9 Lymphocytes # 2.3 Monocytes # 0.4 Eosinophils # 0.3 Basophils # 0.0 Nucleated Red Blood Cells # 0.0 Sodium Level 140 Potassium Level 3.9 Chloride Level 107 Carbon Dioxide Level 29 Anion Gap 4 L Blood Urea Nitrogen 11 Creatinine 0.62 Est Glomerular Filtrat Rate mL/min Glucose Level 106 Calcium Level 9.4 Subjective 24 Hr Interval Summary Eyes: no complaints ENT: no complaints Respiratory: no complaints Cardiovascular: no complaints Gastrointestinal: no complaints Genitourinary: no complaints Musculoskeletal: other (general weakness) Skin: no complaints Lymphatic: no complaints Exam/Review of Systems Exam Vitals Vital Signs Date Temp Pulse Resp B/P (MAP) Pulse Ox O2 O2 Flow FiO2 Time Delivery Rate 12/02/18 98.7 79 15 107/54 98 Room Air 13:59 (71) Intake and Output 12/01/18 12/01/18 12/02/18 1515:00 23:00 07:00 IntakeIntake Total 120 ml 120 ml 250 ml OutputOutput Total 550 ml 600 ml BalanceBalance 120 ml -430 ml -350 ml Constitutional: alert, well developed Psych: nl mood/affect Head: atraumatic Eyes: nl lids, nl sclera ENMT: nl external ears & nose Neck: non-tender Respiratory: clear to auscultation Cardiovascular: nl pulses, other (s1s2) Gastrointestinal: soft, non-tender Musculoskeletal: muscle weakness Extremities: normal pulses Neurological: nl speech, other (alert/reponsive) Skin: nl turgor Lymph: nontender Results Results 24hrs Laboratory Tests Test 12/02/18 05:34 White Blood Count 5.9 Red Blood Count 3.56 L Hemoglobin 11.3 L Hematocrit 35.4 L Mean Corpuscular Volume 99.4 Mean Corpuscular Hemoglobin 31.7 Mean Corpuscular Hemoglobin Concent 31.9 L Red Cell Distribution Width 13.1 Platelet Count 323 Mean Platelet Volume 10.7 H Immature Granulocytes % 0.500 H Neutrophils % 48.8 Lymphocytes % 38.5 Monocytes % 7.3 Eosinophils % 4.2 Basophils % 0.7 Nucleated Red Blood Cells % 0.0 Immature Granulocytes # 0.030 Neutrophils # 2.9 Lymphocytes # 2.3 Monocytes # 0.4 Eosinophils # 0.3 Basophils # 0.0 Nucleated Red Blood Cells # 0.0 Sodium Level 140 Potassium Level 3.9 Chloride Level 107 Carbon Dioxide Level 29 Anion Gap 4 L Blood Urea Nitrogen 11 Creatinine 0.62 Est Glomerular Filtrat Rate mL/min Glucose Level 106 Calcium Level 9.4 Medications Medication Current Medications IV Flush (NS 3 ml) 3 ml PER PROTOCOL IV ; Start 11/14/18 at 00:00 Ondansetron HCl (Zofran Inj) 4 mg Q6H PRN IV NAUSEA/VOMITING; Start 11/14/18 at 00:00 Acetaminophen (Tylenol Tab) 650 mg Q6H PRN PO .PAIN 1-3 OR TEMP Last administered on 12/01/18 21:46; Admin Dose 650 MG; Start 11/14/18 at 00:00 Morphine Sulfate (morphine) 2 mg Q4H PRN IV .PAIN 7-10 Last administered on 12/02/18 17:44; Admin Dose 2 MG; Start 11/14/18 at 00:00 Enoxaparin Sodium (Lovenox) 30 mg DAILY SC Last administered on 11/16/18 08:55; Admin Dose 30 MG; Start 11/14/18 at 09:00; Status Hold Acetaminophen (Tylenol Supp) 650 mg Q6H PRN [place] ELEVATED TEMPERATURE Last administered on 11/14/18 23:33; Admin Dose 650 MG; Start 11/14/18 at 21:30 Clonidine (Catapres) 0.1 mg Q6H PRN PO PRN SBP > 160; Start 11/15/18 at 00:00 Hydralazine HCl (Apresoline) 25 mg Q6 PRN PO PRN SBP > 160 Last administered on 11/19/18 21:38; Admin Dose 25 MG; Start 11/15/18 at 00:00 Famotidine (Pepcid) 20 mg DAILY PO Last administered on 12/02/18 09:01; Admin Dose 20 MG; Start 11/19/18 at 09:00 Sodium Phosphate (Neutra-Phos) 250 mg BID PO Last administered on 12/02/18 09:01; Admin Dose 250 MG; Start 11/21/18 at 09:00 Ascorbic Acid (Vitamin C) 500 mg DAILY PO Last administered on 12/02/18 09:01; Admin Dose 500 MG; Start 11/23/18 at 09:00 Zinc Sulfate (Zinc Sulfate) 220 mg DAILY PO Last administered on 12/02/18 09 :01; Admin Dose 220 MG; Start 11/23/18 at 09:00 Multivitamins Therapeutic (Theragran) 1 tab DAILY PO Last administered on 12/02/18 09:01; Admin Dose 1 TAB; Start 11/23/18 at 09:00 Loratadine (Claritin) 10 mg DAILY PO Last administered on 12/02/18 09:01; Admin Dose 10 MG; Start 11/22/18 at 20:00 Fluocinonide (Lidex 0.05% Cr) 1 applic BID TOP Last administered on 12/02/18 09:02; Admin Dose 1 APPLIC; Start 11/22/18 at 21:00 Risperidone (Risperdal) 0.5 mg BID PO Last administered on 12/02/18 09:01; Admin Dose 0.5 MG; Start 11/26/18 at 21:00 JASEN SOTOMAYOR Dec 02, 2018 19:21
[2018-12-02 20:15] VITALS: BP 121/60; PULSE 97; RESP 20
[2018-12-03 01:23] VITALS: BP 148/71; PULSE 105; RESP 18
--- NOTE | 2018-12-03 06:14 | PN ---
Date/Time of Note Date/Time of Note DATE: 12/03/18 TIME: 06:14 Assessment/Plan VTE Prophylaxis Risk score (from [facility] [place])>0 risk: 8 SCD applied (from [facility] [place]): Yes SCD contraindicated: other Pharmacological prophylaxis: other Pharm contraindication: other Lines/Catheters IV Catheter Type (from [email or web address] Mid Line Central line still needed: Yes Urinary Cath still in place: Yes Reason Cath still needed: urinary retention Assessment/Plan Assessment/Plan -Sepsis secondary to urinary tract infection, resolving continue antibiotics. -Dr. Griffiths is following in infection disease consultation. -Alpha hemolytic strep bacteremia, 2D echo with no vegetation -continue Rocephin for 2 weeks per ID recommendations. -Proteus M UTI, continue Rocephin. -Acute metabolic encephalopathy. No evidence of acute intracranial hemorrhage, infarcts, or acute intracranial pathology per CT brain. -Cardiomegaly with ejection fraction of 60% -Mitral stenosis -Hypernatremia, resolved. -Dr. Edwards is following in nephrology consultation. -Acute kidney injury -Thrombocytopenia, resolved -Dr. Herndon is following in hematology consultation. -Dysphagia, continue pureed diet, aspiration precaution. -Multiple stage I pressure ulcers, air mattress, off loading, optimize nutrition. - wound care Placement pending .Further recommendations based on clinical course. Plan of care discussed with Dr. Jin Result Diagram: 12/02/18 0534 12/02/18 0534 Results 24hrs Laboratory Tests Test 12/03/18 05:19 White Blood Count Pending Red Blood Count Pending Hemoglobin Pending Hematocrit Pending Mean Corpuscular Volume Pending Mean Corpuscular Hemoglobin Pending Mean Corpuscular Hemoglobin Concent Pending Red Cell Distribution Width Pending Platelet Count Pending Mean Platelet Volume Pending Subjective 24 Hr Interval Summary Free Text/Dictation NAD afebrile wbc wnl placement pending cont wound care no new events reported last night Eyes: no complaints ENT: no complaints Respiratory: no complaints Cardiovascular: no complaints Gastrointestinal: no complaints Genitourinary: no complaints Musculoskeletal: restricted range of motion Skin: other (wound) Neurologic: no complaints, dizziness Exam/Review of Systems Exam Vitals Vital Signs Date Temp Pulse Resp B/P (MAP) Pulse Ox O2 O2 Flow FiO2 Time Delivery Rate 12/03/18 97.9 105 18 148/71 97 01:23 (96) 12/02/18 Room Air 13:59 Intake and Output 12/02/18 12/02/18 12/03/18 1515:00 23:00 07:00 IntakeIntake Total 200 ml OutputOutput Total 400 ml BalanceBalance -200 ml Constitutional: alert, well developed Eyes: nl lids, nl sclera ENMT: nl external ears & nose Neck: non-tender Respiratory: clear to auscultation Cardiovascular: nl pulses, other (s1s2) Gastrointestinal: soft, non-tender Musculoskeletal: muscle weakness, range of motion Neurological: nl speech, other (alert/responsive) Skin: other Lymph: nontender Results Results 24hrs Laboratory Tests Test 12/03/18 05:19 White Blood Count Pending Red Blood Count Pending Hemoglobin Pending Hematocrit Pending Mean Corpuscular Volume Pending Mean Corpuscular Hemoglobin Pending Mean Corpuscular Hemoglobin Concent Pending Red Cell Distribution Width Pending Platelet Count Pending Mean Platelet Volume Pending Medications Medication Current Medications IV Flush (NS 3 ml) 3 ml PER PROTOCOL IV ; Start 11/14/18 at 00:00 Ondansetron HCl (Zofran Inj) 4 mg Q6H PRN IV NAUSEA/VOMITING; Start 11/14/18 at 00:00 Acetaminophen (Tylenol Tab) 650 mg Q6H PRN PO .PAIN 1-3 OR TEMP Last administered on 12/01/18at 21:46; Admin Dose 650 MG; Start 11/14/18 at 00:00 Morphine Sulfate (morphine) 2 mg Q4H PRN IV .PAIN 7-10 Last administered on 12/02/18at 17:44; Admin Dose 2 MG; Start 11/14/18 at 00:00 Enoxaparin Sodium (Lovenox) 30 mg DAILY SC Last administered on 11/16/18at 08:55; Admin Dose 30 MG; Start 11/14/18 at 09:00; Status Hold Acetaminophen (Tylenol Supp) 650 mg Q6H PRN [place] ELEVATED TEMPERATURE Last administered on 11/14/18at 23:33; Admin Dose 650 MG; Start 11/14/18 at 21:30 Clonidine (Catapres) 0.1 mg Q6H PRN PO PRN SBP > 160; Start 11/15/18 at 00:00 Hydralazine HCl (Apresoline) 25 mg Q6 PRN PO PRN SBP > 160 Last administered on 11/19/18 21:38; Admin Dose 25 MG; Start 11/15/18 at 00:00 Famotidine (Pepcid) 20 mg DAILY PO Last administered on 12/02/18 09:01; Admin Dose 20 MG; Start 11/19/18 at 09:00 Sodium Phosphate (Neutra-Phos) 250 mg BID PO Last administered on 12/02/18 20:47; Admin Dose 250 MG; Start 11/21/18 at 09:00 Ascorbic Acid (Vitamin C) 500 mg DAILY PO Last administered on 12/02/18 09:01; Admin Dose 500 MG; Start 11/23/18 at 09:00 Zinc Sulfate (Zinc Sulfate) 220 mg DAILY PO Last administered on 12/02/18 09:01; Admin Dose 220 MG; Start 11/23/18 at 09:00 Multivitamins Therapeutic (Theragran) 1 tab DAILY PO Last administered on 12/02/18 09:01; Admin Dose 1 TAB; Start 11/23/18 at 09:00 Loratadine (Claritin) 10 mg DAILY PO Last administered on 12/02/18 09:01; Admin Dose 10 MG; Start 11/22/18 at 20:00 Fluocinonide (Lidex 0.05% Cr) 1 applic BID TOP Last administered on 12/02/18 20:49; Admin Dose 1 APPLIC; Start 11/22/18 at 21:00 Risperidone (Risperdal) 0.5 mg BID PO Last administered on 12/02/18 20:47; Admin Dose 0.5 MG; Start 11/26/18 at 21:00 JASEN SOTOMAYOR Dec 03, 2018 06:14
[2018-12-03 08:08] VITALS: BP 141/57; PULSE 91; RESP 18
[2018-12-03] MEDS: RISPERIDONE 1 MG TAB PO SCH ×2 (09:28→20:48)
[2018-12-03] MEDS: ASCORBIC ACID 500 MG TAB PO SCH (09:28)
[2018-12-03] MEDS: LORATADINE 10 MG TAB PO SCH (09:28)
[2018-12-03] MEDS: FAMOTIDINE 20 MG TAB PO SCH (09:28)
[2018-12-03] MEDS: MULTIVITAMINS THERAPEUTIC TAB PO SCH (09:29)
[2018-12-03] MEDS: NEUTRA-PHOS 250 MG PACKET PO SCH ×2 (09:29→20:48)
[2018-12-03] MEDS: ZINC SULFATE 220 MG CAP PO SCH (09:29)
[2018-12-03] MEDS: FLUOCINONIDE 0.05% 15 GM CR TOP SCH ×2 (09:30→20:49)
--- NOTE | 2018-12-03 11:53 | CONS ---
Assessment/Plan Assessment/Plan Hospital Course (Demo Recall) #Thrombocytopenia -platelets are improving and are now stable and> 200K -this was likely 2/2 sepsis which has improved - DIC unlikely given the normal fibrinogen -TTP unlikely given normal LDH - abdominal ultrasound demonstrates fatty liver -HIV hepatitis are negative #Sepsis -2/2 urosepsis and HCAP -now off antibiotics #ARF -management per nephrology. 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 #History of peripheral vascular disease and abdominal aortic aneurysm - status post endovascular abdominal aortic repair and status post aortobi-iliac endograft placement. Consultation Date/Type/Reason Admit Date/Time Nov 13, 2018 at 23:15 Initial Consult Date 11/18/18 Type of Consult Hematology Reason for Consultation thrombocytopenia/anemia Requesting Provider: WALDO CLEARY MD Date/Time of Note DATE: 12/03/18 TIME: 11:50 24 HR Interval Summary Free Text/Dictation no acute overnight events Exam/Review of Systems Exam Vitals Vital Signs Date Temp Pulse Resp B/P (MAP) Pulse Ox O2 O2 Flow FiO2 Time Delivery Rate 12/03/18 98.0 91 18 141/57 95 Room Air 08:08 (85) Intake and Output 12/02/18 12/02/18 12/03/18 1515:00 23:00 07:00 IntakeIntake Total 200 ml 200 ml OutputOutput Total 400 ml BalanceBalance -200 ml 200 ml Constitutional: non-verbal Head: normocephalic Eyes: nl conjunctiva ENMT: nl external ears & nose Neck: supple Respiratory: clear to auscultation Cardiovascular: regular rate and rhythm Gastrointestinal: soft Musculoskeletal: nl extremities to inspection Results Result Diagram: 12/03/1819 12/03/1819 Results 24hrs Laboratory Tests Test 12/03/18 05:19 White Blood Count 7.9 # Red Blood Count 3.65 L Hemoglobin 11.6 L Hematocrit 36.0 L Mean Corpuscular Volume 98.6 Mean Corpuscular Hemoglobin 31.8 Mean Corpuscular Hemoglobin Concent 32.2 Red Cell Distribution Width 13.2 Platelet Count 304 Mean Platelet Volume 10.7 H Immature Granulocytes % 0.800 H Neutrophils % 65.2 Lymphocytes % 22.8 Monocytes % 7.2 Eosinophils % 3.4 Basophils % 0.6 Nucleated Red Blood Cells % 0.0 Immature Granulocytes # 0.060 H Neutrophils # 5.2 Lymphocytes # 1.8 Monocytes # 0.6 Eosinophils # 0.3 Basophils # 0.1 Nucleated Red Blood Cells # 0.0 Sodium Level 141 Potassium Level 3.9 Chloride Level 108 Carbon Dioxide Level 26 Anion Gap 7 Blood Urea Nitrogen 12 Creatinine 0.67 Est Glomerular Filtrat Rate mL/min Glucose Level 123 Calcium Level 9.5 Medications Medication Current Medications IV Flush (NS 3 ml) 3 ml PER PROTOCOL IV ; Start 11/14/18 at 00:00 Ondansetron HCl (Zofran Inj) 4 mg Q6H PRN IV NAUSEA/VOMITING; Start 11/14/18 at 00:00 Acetaminophen (Tylenol Tab) 650 mg Q6H PRN PO .PAIN 1-3 OR TEMP Last administered on 12/01/18 21:46; Admin Dose 650 MG; Start 11/14/18 at 00:00 Morphine Sulfate (morphine) 2 mg Q4H PRN IV .PAIN 7-10 Last administered on 12/02/18 17:44; Admin Dose 2 MG; Start 11/14/18 at 00:00 Enoxaparin Sodium (Lovenox) 30 mg DAILY SC Last administered on 11/16/18 08:55; Admin Dose 30 MG; Start 11/14/18 at 09:00; Status Hold Acetaminophen (Tylenol Supp) 650 mg Q6H PRN [place] ELEVATED TEMPERATURE Last adm inistered on 11/14/18 23:33; Admin Dose 650 MG; Start 11/14/18 at 21:30 Clonidine (Catapres) 0.1 mg Q6H PRN PO PRN SBP > 160; Start 11/15/18 at 00:00 Hydralazine HCl (Apresoline) 25 mg Q6 PRN PO PRN SBP > 160 Last administered on 11/19/18 21:38; Admin Dose 25 MG; Start 11/15/18 at 00:00 Famotidine (Pepcid) 20 mg DAILY PO Last administered on 12/03/18 09:28; Admin Dose 20 MG; Start 11/19/18 at 09:00 Sodium Phosphate (Neutra-Phos) 250 mg BID PO Last administered on 12/03/18 09:29; Admin Dose 250 MG; Start 11/21/18 at 09:00 Ascorbic Acid (Vitamin C) 500 mg DAILY PO Last administered on 12/03/18 09:28; Admin Dose 500 MG; Start 11/23/18 at 09:00 Zinc Sulfate (Zinc Sulfate) 220 mg DAILY PO Last administered on 12/03/18 09:29; Admin Dose 220 MG; Start 11/23/18 at 09:00 Multivitamins Therapeutic (Theragran) 1 tab DAILY PO Last administered on 12/03/18 09:29; Admin Dose 1 TAB; Start 11/23/18 at 09:00 Loratadine (Claritin) 10 mg DAILY PO Last administered on 12/03/18 09:28; Admin Dose 10 MG; Start 11/22/18 at 20:00 Fluocinonide (Lidex 0.05% Cr) 1 applic BID TOP Last administered on 12/03/18 09:30; Admin Dose 1 APPLIC; Start 11/22/18 at 21:00 Risperidone (Risperdal) 0.5 mg BID PO Last administered on 12/03/18 09:28; Admin Dose 0.5 MG; Start 11/26/18 at 21:00 ALYSIA JIM M.D. Dec 03, 2018 11:53
[2018-12-03 13:26] VITALS: BP 117/55; PULSE 64; RESP 15
[2018-12-03 19:35] VITALS: BP 106/41; PULSE 77; RESP 19
[2018-12-04 01:56] VITALS: BP 108/56; PULSE 95; RESP 19
--- NOTE | 2018-12-04 02:47 | PN ---
Date/Time of Note Date/Time of Note DATE: 12/04/18 TIME: 02:47 Assessment/Plan VTE Prophylaxis Risk score (from [facility] [place])>0 risk: 8 SCD applied (from [facility] [place]): Yes SCD contraindicated: other Pharmacological prophylaxis: other Pharm contraindication: other Lines/Catheters IV Catheter Type (from [facility]): Saline Lock Urinary Cath still in place: Yes Reason Cath still needed: urinary retention Assessment/Plan Assessment/Plan -Sepsis secondary to urinary tract infection, resolving continue antibiotics. -Dr. Griffiths is following in infection disease consultation. -Alpha hemolytic strep bacteremia, 2D echo with no vegetation -continue Rocephin for 2 weeks per ID recommendations. -Proteus M UTI, continue Rocephin. -Acute metabolic encephalopathy. No evidence of acute intracranial hemorrhage, infarcts, or acute intracranial pathology per CT brain. -Cardiomegaly with ejection fraction of 60% -Mitral stenosis -Hypernatremia, resolved. -Dr. Edwards is following in nephrology consultation. -Acute kidney injury -Thrombocytopenia, resolved -Dr. Herndon is following in hematology consultation. -Dysphagia, continue pureed diet, aspiration precaution. -Multiple stage I pressure ulcers, air mattress, off loading, optimize nutri tion. - wound care Placement pending .Further recommendations based on clinical course. Plan of care discussed with Dr. Jin Result Diagram: 12/03/18 0519 12/03/18 0519 Results 24hrs Laboratory Tests Test 12/03/18 05:19 White Blood Count 7.9 # Red Blood Count 3.65 L Hemoglobin 11.6 L Hematocrit 36.0 L Mean Corpuscular Volume 98.6 Mean Corpuscular Hemoglobin 31.8 Mean Corpuscular Hemoglobin Concent 32.2 Red Cell Distribution Width 13.2 Platelet Count 304 Mean Platelet Volume 10.7 H Immature Granulocytes % 0.800 H Neutrophils % 65.2 Lymphocytes % 22.8 Monocytes % 7.2 Eosinophils % 3.4 Basophils % 0.6 Nucleated Red Blood Cells % 0.0 Immature Granulocytes # 0.060 H Neutrophils # 5.2 Lymphocytes # 1.8 Monocytes # 0.6 Eosinophils # 0.3 Basophils # 0.1 Nucleated Red Blood Cells # 0.0 Sodium Level 141 Potassium Level 3.9 Chloride Level 108 Carbon Dioxide Level 26 Anion Gap 7 Blood Urea Nitrogen 12 Creatinine 0.67 Est Glomerular Filtrat Rate mL/min Glucose Level 123 Calcium Level 9.5 Subjective 24 Hr Interval Summary Free Text/Dictation NAD afebrile wbc wnl placement pending Thrombocytopenia- resolved cont wound care no new events reported last night Eyes: no complaints ENT: no complaints Respiratory: no complaints Cardiovascular: no complaints Gastrointestinal: no complaints Exam/Review of Systems Exam Vitals Vital Signs Date Temp Pulse Resp B/P (MAP) Pulse Ox O2 O2 Flow FiO2 Time Delivery Rate 12/04/18 98.3 95 19 108/56 96 01:56 (73) 12/03/18 Room Air 13:26 Intake and Output 12/03/18 12/03/18 12/04/18 1515:00 23:00 07:00 IntakeIntake Total 400 ml OutputOutput Total 1200 ml BalanceBalance -800 ml Constitutional: alert, well developed Psych: nl mood/affect Eyes: nl lids, nl sclera ENMT: nl external ears & nose Neck: non-tender Respiratory: clear to auscultation Cardiovascular: nl pulses, other (S1S2) Gastrointestinal: soft, non-tender Musculoskeletal: muscle weakness, range of motion Extremities: normal pulses Neurological: nl speech, other (alert/responsive) Skin: other (DECUBS) Lymph: nontender Results Results 24hrs Laboratory Tests Test 12/03/18 05:19 White Blood Count 7.9 # Red Blood Count 3.65 L Hemoglobin 11.6 L Hematocrit 36.0 L Mean Corpuscular Volume 98.6 Mean Corpuscular Hemoglobin 31.8 Mean Corpuscular Hemoglobin Concent 32.2 Red Cell Distribution Width 13.2 Platelet Count 304 Mean Platelet Volume 10.7 H Immature Granulocytes % 0.800 H Neutrophils % 65.2 Lymphocytes % 22.8 Monocytes % 7.2 Eosinophils % 3.4 Basophils % 0.6 Nucleated Red Blood Cells % 0.0 Immature Granulocytes # 0.060 H Neutrophils # 5.2 Lymphocytes # 1.8 Monocytes # 0.6 Eosinophils # 0.3 Basophils # 0.1 Nucleated Red Blood Cells # 0.0 Sodium Level 141 Potassium Level 3.9 Chloride Level 108 Carbon Dioxide Level 26 Anion Gap 7 Blood Urea Nitrogen 12 Creatinine 0.67 Est Glomerular Filtrat Rate mL/min Glucose Level 123 Calcium Level 9.5 Medications Medication Current Medications IV Flush (NS 3 ml) 3 ml PER PROTOCOL IV ; Start 11/14/18 at 00:00 Ondansetron HCl (Zofran Inj) 4 mg Q6H PRN IV NAUSEA/VOMITING; Start 11/14/18 at 00:00 Acetaminophen (Tylenol Tab) 650 mg Q6H PRN PO .PAIN 1-3 OR TEMP Last administered on 12/01/18 21:46; Admin Dose 650 MG; Start 11/14/18 at 00:00 Morphine Sulfate (morphine) 2 mg Q4H PRN IV .PAIN 7-10 Last administered on 12/02/18 17:44; Admin Dose 2 MG; Start 11/14/18 at 00:00 Enoxaparin Sodium (Lovenox) 30 mg DAILY SC Last administered on 11/16/18 08:55; Admin Dose 30 MG; Start 11/14/18 at 09:00; Status Hold Acetaminophen (Tylenol Supp) 650 mg Q6H PRN [place] ELEVATED TEMPERATURE Last administered on 11/14/18 23:33; Admin Dose 650 MG; Start 11/14/18 at 21:30 Clonidine (Catapres) 0.1 mg Q6H PRN PO PRN SBP > 160; Start 11/15/18 at 00:00 Hydralazine HCl (Apresoline) 25 mg Q6 PRN PO PRN SBP > 160 Last administered on 11/19/18 21:38; Admin Dose 25 MG; Start 11/15/18 at 00:00 Famotidine (Pepcid) 20 mg DAILY PO Last administered on 12/03/18 09:28; Admin Dose 20 MG; Start 11/19/18 at 09:00 Sodium Phosphate (Neutra-Phos) 250 mg BID PO Last administered on 12/03/18 20:48; Admin Dose 250 MG; Start 11/21/18 at 09:00 Ascorbic Acid (Vitamin C) 500 mg DAILY PO Last administered on 12/03/18 09:28; Admin Dose 500 MG; Start 11/23/18 at 09:00 Zinc Sulfate (Zinc Sulfate) 220 mg DAILY PO Last administered on 12/03/18 09:29; Admin Dose 220 MG; Start 11/23/18 at 09:00 Multivitamins Therapeutic (Theragran) 1 tab DAILY PO Last administered on 12/03/18 09:29; Admin Dose 1 TAB; Start 11/23/18 at 09:00 Loratadine (Claritin) 10 mg DAILY PO Last administered on 12/03/18at 09:28; Admin Dose 10 MG; Start 11/22/18 at 20:00 Fluocinonide (Lidex 0.05% Cr) 1 applic BID TOP Last administered on 12/03/18at 20:49; Admin Dose 1 APPLIC; Start 11/22/18 at 21:00 Risperidone (Risperdal) 0.5 mg BID PO Last administered on 12/03/18at 20:48; Admin Dose 0.5 MG; Start 11/26/18 at 21:00 JASEN SOTOMAYOR December 04, 2018 02:47
[2018-12-04 08:03] VITALS: BP 132/62; PULSE 81; RESP 18
[2018-12-04] MEDS: FAMOTIDINE 20 MG TAB PO SCH (08:40)
[2018-12-04] MEDS: ZINC SULFATE 220 MG CAP PO SCH (08:40)
[2018-12-04] MEDS: NEUTRA-PHOS 250 MG PACKET PO SCH ×2 (08:40→20:29)
[2018-12-04] MEDS: MULTIVITAMINS THERAPEUTIC TAB PO SCH (08:40)
[2018-12-04] MEDS: RISPERIDONE 1 MG TAB PO SCH ×2 (08:40→20:29)
[2018-12-04] MEDS: ASCORBIC ACID 500 MG TAB PO SCH (08:40)
[2018-12-04] MEDS: FLUOCINONIDE 0.05% 15 GM CR TOP SCH ×2 (08:43→20:30)
[2018-12-04] MEDS: LORATADINE 10 MG TAB PO SCH (08:49)
[2018-12-04 13:18] VITALS: BP 114/58; PULSE 52; RESP 18
[2018-12-04 20:35] VITALS: BP 129/64; PULSE 73; RESP 18
[2018-12-04 20:45] VITALS: BP 123/78; PULSE 98; RESP 18
[2018-12-05 02:05] VITALS: BP 135/81; PULSE 94; RESP 18
[2018-12-05 07:35] VITALS: BP 133/89; PULSE 89; RESP 18
[2018-12-05] MEDS: LORATADINE 10 MG TAB PO SCH (08:46)
[2018-12-05] MEDS: ASCORBIC ACID 500 MG TAB PO SCH (08:46)
[2018-12-05] MEDS: ZINC SULFATE 220 MG CAP PO SCH (08:46)
[2018-12-05] MEDS: FAMOTIDINE 20 MG TAB PO SCH (08:46)
[2018-12-05] MEDS: RISPERIDONE 1 MG TAB PO SCH ×2 (08:46→20:58)
[2018-12-05] MEDS: MULTIVITAMINS THERAPEUTIC TAB PO SCH (08:46)
[2018-12-05] MEDS: NEUTRA-PHOS 250 MG PACKET PO SCH ×2 (08:46→20:58)
[2018-12-05] MEDS: FLUOCINONIDE 0.05% 15 GM CR TOP SCH ×2 (08:47→21:00)
--- NOTE | 2018-12-05 10:46 | PN ---
Date/Time of Note Date/Time of Note DATE: 12/05/18 TIME: 10:46 Assessment/Plan VTE Prophylaxis [place] [facility] [place]: 6 [place]CD applied [place] [facility] [place] Yes SCD contraindicated: other Pharmacological prophylaxis: other Pharm contraindication: other Lines/Catheters IV Catheter Type (from [facility] Saline Lock Urinary Cath still in place: Yes Reason Cath still needed: urinary retention Assessment/Plan Assessment/Plan -Sepsis secondary to urinary tract infection, resolving continue antibiotics. Dr. Griffiths is following in infection disease consultation. -Alpha hemolytic strep bacteremia, 2D echo with no vegetation, continue Rocephin for 2 weeks per ID recommendations. -Proteus M UTI, continue Rocephin. -Acute metabolic encephalopathy. No evidence of acute intracranial hemorrhage, infarcts, or acute intracranial pathology per CT brain. -Cardiomegaly with ejection fraction of 60% -Mitral stenosis -Hypernatremia, resolved. Dr. Edwards is following in nephrology consultation. -Acute kidney injury -Thrombocytopenia, resolving. Dr. Herndon is following in hematology consultation. -Dysphagia, continue pureed diet, aspiration precaution. -Multiple stage I pressure ulcers, air mattress, off loading, optimize nutrition. Further recommendations based on clinical course. Plan of care discussed with Dr. Jin Result Diagram: 12/05/1858 12/05/18 0558 Results 24hrs Laboratory Tests Test 12/05/18 05:58 White Blood Count 7.6 Red Blood Count 3.81 L Hemoglobin 12.2 Hematocrit 38.1 Mean Corpuscular Volume 100.0 Mean Corpuscular Hemoglobin 32.0 Mean Corpuscular Hemoglobin Concent 32.0 Red Cell Distribution Width 13.2 Platelet Count 283 Mean Platelet Volume 10.8 H Immature Granulocytes % 0.500 H Neutrophils % 52.4 Lymphocytes % 34.4 Monocytes % 8.0 Eosinophils % 3.8 Basophils % 0.9 Nucleated Red Blood Cells % 0.0 Immature Granulocytes # 0.040 H Neutrophils # 4.0 Lymphocytes # 2.6 Monocytes # 0.6 Eosinophils # 0.3 Basophils # 0.1 Nucleated Red Blood Cells # 0.0 Sodium Level 142 Potassium Level 3.5 Chloride Level 107 Carbon Dioxide Level 27 Anion Gap 8 Blood Urea Nitrogen 13 Creatinine 0.65 Est Glomerular Filtrat Rate mL/min Glucose Level 122 Calcium Level 10.2 Subjective 24 Hr Interval Summary Free Text/Dictation afebrile wbc wnl placement pending Thrombocytopenia- resolved cont wound care no new events reported last night Eyes: no complaints ENT: no complaints Respiratory: no complaints Cardiovascular: no complaints Gastrointestinal: no complaints Genitourinary: no complaints Musculoskeletal: restricted range of motion Skin: other (wounds) Neurologic: no complaints Exam/Review of Systems Exam Vitals Vital Signs Date Temp Pulse Resp B/P (MAP) Pulse Ox O2 O2 Flow FiO2 Time Delivery Rate 12/05/18 98.6 89 18 133/89 92 Room Air 07:35 (104) Intake and Output 12/04/18 12/04/18 12/05/18 1515:00 23:00 07:00 OutputOutput Total 1050 ml BalanceBalance -1050 ml Constitutional: alert, well developed Psych: nl mood/affect Eyes: nl lids, nl sclera ENMT: nl external ears & nose Neck: non-tender Respiratory: clear to auscultation Cardiovascular: nl pulses, other (s1s2) Gastrointestinal: soft, non-tender Musculoskeletal: muscle weakness, range of motion Extremities: normal pulses Neurological: nl speech, other (alert/responsive) Skin: other (decubs) Lymph: nontender Results Results 24hrs Laboratory Tests Test 12/05/18 05:58 White Blood Count 7.6 Red Blood Count 3.81 L Hemoglobin 12.2 Hematocrit 38.1 Mean Corpuscular Volume 100.0 Mean Corpuscular Hemoglobin 32.0 Mean Corpuscular Hemoglobin Concent 32.0 Red Cell Distribution Width 13.2 Platelet Count 283 Mean Platelet Volume 10.8 H Immature Granulocytes % 0.500 H Neutrophils % 52.4 Lymphocytes % 34.4 Monocytes % 8.0 Eosinophils % 3.8 Basophils % 0.9 Nucleated Red Blood Cells % 0.0 Immature Granulocytes # 0.040 H Neutrophils # 4.0 Lymphocytes # 2.6 Monocytes # 0.6 Eosinophils # 0.3 Basophils # 0.1 Nucleated Red Blood Cells # 0.0 Sodium Level 142 Potassium Level 3.5 Chloride Level 107 Carbon Dioxide Level 27 Anion Gap 8 Blood Urea Nitrogen 13 Creatinine 0.65 Est Glomerular Filtrat Rate mL/min Glucose Level 122 Calcium Level 10.2 Medications Medication Current Medications IV Flush (NS 3 ml) 3 ml PER PROTOCOL IV ; Start 11/14/18 at 00:00 Ondansetron HCl (Zofran Inj) 4 mg Q6H PRN IV NAUSEA/VOMITING; Start 11/14/18 at 00:00 Acetaminophen (Tylenol Tab) 650 mg Q6H PRN PO .PAIN 1-3 OR TEMP Last administered on 12/01/18 21:46; Admin Dose 650 MG; Start 11/14/18 at 00:00 Morphine Sulfate (morphine) 2 mg Q4H PRN IV .PAIN 7-10 Last administered on 12/02/18 17:44; Admin Dose 2 MG; Start 11/14/18 at 00:00 Enoxaparin Sodium (Lovenox) 30 mg DAILY SC Last administered on 11/16/18 08:55; Admin Dose 30 MG; Start 11/14/18 at 09:00; Status Hold Acetaminophen (Tylenol Supp) 650 mg Q6H PRN [place] ELEVATED TEMPERATURE Last administered on 11/14/18 23:33; Admin Dose 650 MG; Start 11/14/18 at 21:30 Clonidine (Catapres) 0.1 mg Q6H PRN PO PRN SBP > 160; Start 11/15/18 at 00:00 Hydralazine HCl (Apresoline) 25 mg Q6 PRN PO PRN SBP > 160 Last administered on 11/19/18 21:38; Admin Dose 25 MG; Start 11/15/18 at 00:00 Famotidine (Pepcid) 20 mg DAILY PO Last administered on 12/05/18 08:46; Admin Dose 20 MG; Start 11/19/18 at 09:00 Sodium Phosphate (Neutra-Phos) 250 mg BID PO Last administered on 12/05/18 08:46; Admin Dose 250 MG; Start 11/21/18 at 09:00 Ascorbic Acid (Vitamin C) 500 mg DAILY PO Last administered on 12/05/18 08:46; Admin Dose 500 MG; Start 11/23/18 at 09:00 Zinc Sulfate (Zinc Sulfate) 220 mg DAILY PO Last administered on 12/05/18 08:46; Admin Dose 220 MG; Start 11/23/18 at 09:00 Multivitamins Therapeutic (Theragran) 1 tab DAILY PO Last administered on 08:46; Admin Dose 1 TAB; Start 11/23/18 at 09:00 Loratadine (Claritin) 10 mg DAILY PO Last administered on 12/05/18 08:46; Admin Dose 10 MG; Start 11/22/18 at 20:00 Fluocinonide (Lidex 0.05% Cr) 1 applic BID TOP Last administered on 12/05/18 08:47; Admin Dose 1 APPLIC; Start 11/22/18 at 21:00 Risperidone (Risperdal) 0.5 mg BID PO Last administered on 12/05/18 08:46; Admin Dose 0.5 MG; Start 11/26/18 at 21:00 JASEN SOTOMAYOR December 05, 2018 10:46
[2018-12-05 13:27] VITALS: BP 102/63; PULSE 81; RESP 16
--- NOTE | 2018-12-05 15:15 | CONS ---
Assessment/Plan Assessment/Plan Hospital Course (Demo Recall) #Thrombocytopenia -platelets are improving and are now stable and> 200K -this was likely 2/2 sepsis which has improved - DIC unlikely given the normal fibrinogen -TTP unlikely given normal LDH - abdominal ultrasound demonstrates fatty liver -HIV hepatitis are negative #Sepsis -2/2 urosepsis and HCAP -now off antibiotics #ARF -management per nephrology. 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 #History of peripheral vascular disease and abdominal aortic aneurysm - status post endovascular abdominal aortic repair and status post aortobi-iliac endograft placement. Consultation Date/Type/Reason Admit Date/Time Nov 13, 2018 at 23:15 Initial Consult Date 11/18/18 Type of Consult Hematology Reason for Consultation thrombocytopenia and anemia Requesting Provider: WALDO CLEARY MD Date/Time of Note DATE: 12/05/18 TIME: 15:15 24 HR Interval Summary Free Text/Dictation pt is currently off antibiotics Exam/Review of Systems Exam Vitals Vital Signs Date Temp Pulse Resp B/P (MAP) Pulse Ox O2 O2 Flow FiO2 Time Delivery Rate 12/05/18 98.1 81 16 102/63 100 Room Air 13:27 (76) Intake and Output 12/04/18 12/04/18 12/05/18 1515:00 23:00 07:00 OutputOutput Total 1050 ml BalanceBalance -1050 ml Constitutional: non-verbal, frail Psych: anxiety, depression Head: normocephalic Eyes: nl conjunctiva ENMT: nl external ears & nose Neck: supple Respiratory: clear to auscultation Cardiovascular: regular rate and rhythm Gastrointestinal: soft Musculoskeletal: nl extremities to inspection Results Result Diagram: 12/05/18 0558 12/05/1858 Results 24hrs Laboratory Tests Test 12/05/18 05:58 White Blood Count 7.6 Red Blood Count 3.81 L Hemoglobin 12.2 Hematocrit 38.1 Mean Corpuscular Volume 100.0 Mean Corpuscular Hemoglobin 32.0 Mean Corpuscular Hemoglobin Concent 32.0 Red Cell Distribution Width 13.2 Platelet Count 283 Mean Platelet Volume 10.8 H Immature Granulocytes % 0.500 H Neutrophils % 52.4 Lymphocytes % 34.4 Monocytes % 8.0 Eosinophils % 3.8 Basophils % 0.9 Nucleated Red Blood Cells % 0.0 Immature Granulocytes # 0.040 H Neutrophils # 4.0 Lymphocytes # 2.6 Monocytes # 0.6 Eosinophils # 0.3 Basophils # 0.1 Nucleated Red Blood Cells # 0.0 Sodium Level 142 Potassium Level 3.5 Chloride Level 107 Carbon Dioxide Level 27 Anion Gap 8 Blood Urea Nitrogen 13 Creatinine 0.65 Est Glomerular Filtrat Rate mL/min Glucose Level 122 Calcium Level 10.2 Medications Medication Current Medications IV Flush (NS 3 ml) 3 ml PER PROTOCOL IV ; Start 11/14/18 at 00:00 Ondansetron HCl (Zofran Inj) 4 mg Q6H PRN IV NAUSEA/VOMITING; Start 11/14/18 at 00:00 Acetaminophen (Tylenol Tab) 650 mg Q6H PRN PO .PAIN 1-3 OR TEMP Last ad ministered on 12/01/18 21:46; Admin Dose 650 MG; Start 11/14/18 at 00:00 Morphine Sulfate (morphine) 2 mg Q4H PRN IV .PAIN 7-10 Last administered on 12/02/18 17:44; Admin Dose 2 MG; Start 11/14/18 at 00:00 Enoxaparin Sodium (Lovenox) 30 mg DAILY SC Last administered on 11/16/18 08:55; Admin Dose 30 MG; Start 11/14/18 at 09:00; Status Hold Acetaminophen (Tylenol Supp) 650 mg Q6H PRN [place] ELEVATED TEMPERATURE Last administered on 11/14/18 23:33; Admin Dose 650 MG; Start 11/14/18 at 21:30 Clonidine (Catapres) 0.1 mg Q6H PRN PO PRN SBP > 160; Start 11/15/18 at 00:00 Hydralazine HCl (Apresoline) 25 mg Q6 PRN PO PRN SBP > 160 Last administered on 11/19/18 21:38; Admin Dose 25 MG; Start 11/15/18 at 00:00 Famotidine (Pepcid) 20 mg DAILY PO Last administered on 12/05/18 08:46; Admin Dose 20 MG; Start 11/19/18 at 09:00 Sodium Phosphate (Neutra-Phos) 250 mg BID PO Last administered on 12/05/18 08:46; Admin Dose 250 MG; Start 11/21/18 at 09:00 Ascorbic Acid (Vitamin C) 500 mg DAILY PO Last administered on 12/05/18 08:46; Admin Dose 500 MG; Start 11/23/18 at 09:00 Zinc Sulfate (Zinc Sulfate) 220 mg DAILY PO Last administered on 12/05/18 08:46; Admin Dose 220 MG; Start 11/23/18 at 09:00 Multivitamins Therapeutic (Theragran) 1 tab DAILY PO Last administered on 12/05/18 08:46; Admin Dose 1 TAB; Start 11/23/18 at 09:00 Loratadine (Claritin) 10 mg DAILY PO Last administered on 12/05/18 08:46; Admin Dose 10 MG; Start 11/22/18 at 20:00 Fluocinonide (Lidex 0.05% Cr) 1 applic BID TOP Last administered on 12/05/18 08:47; Admin Dose 1 APPLIC; Start 11/22/18 at 21:00 Risperidone (Risperdal) 0.5 mg BID PO Last administered on 12/05/18 08:46; Admin Dose 0.5 MG; Start 11/26/18 at 21:00 ALYSIA JIM M.D. December 05, 2018 15:15
[2018-12-05] MEDS ORDERED: NA PHOSPHATE/BIPHOS 133 ML ENEMA PR ONE (19:00)
[2018-12-05 19:36] VITALS: BP 130/73; PULSE 98; RESP 18
[2018-12-05] MEDS: SENNA TAB PO SCH (20:58)
[2018-12-06 02:00] VITALS: BP 149/67; PULSE 95; RESP 18
--- NOTE | 2018-12-06 03:10 | PN ---
Date/Time of Note Date/Time of Note DATE: 12/06/18 TIME: 03:06 Assessment/Plan VTE Pro[place]axis [place] [facility] [place]: 8 [place]CD [place] [facility] [place] SCD contraindicated: other Pharmacological prophylaxis: other Pharm contraindication: other Lines/Catheters IV Catheter Type (from [facility]): Saline Lock Urinary Cath still in place: Yes Reason Cath still needed: urinary retention Assessment/Plan Assessment/Plan - Constipation - Fleets enema now -Sepsis secondary to urinary tract infection, resolving continue antibiotics. Dr. Griffiths is following in infection disease consultation. -Alpha hemolytic strep bacteremia, 2D echo with no vegetation, continue Rocephin for 2 weeks per ID recommendations. -Proteus M UTI, continue Rocephin. -Acute metabolic encephalopathy. No evidence of acute intracranial hemorrhage, infarcts, or acute intracranial pathology per CT brain. -Cardiomegaly with ejection fraction of 60% -Mitral stenosis -Hypernatremia, resolved. Dr. Edwards is following in nephrology consultation. -Acute kidney injury -Thrombocytopenia, resolving. Dr. Herndon is following in hematology consultation. -Dysphagia, continue pureed diet, aspiration precaution. -Multiple stage I pressure ulcers, air mattress, off loading, optimize nutrition. Further recommendations based on clinical course. Plan of care discussed with Dr. Jin Result Diagram: 12/05/1858 12/05/18 0558 Results 24hrs Laboratory Tests Test 12/05/18 05:58 White Blood Count 7.6 Red Blood Count 3.81 L Hemoglobin 12.2 Hematocrit 38.1 Mean Corpuscular Volume 100.0 Mean Corpuscular Hemoglobin 32.0 Mean Corpuscular Hemoglobin Concent 32.0 Red Cell Distribution Width 13.2 Platelet Count 283 Mean Platelet Volume 10.8 H Immature Granulocytes % 0.500 H Neutrophils % 52.4 Lymphocytes % 34.4 Monocytes % 8.0 Eosinophils % 3.8 Basophils % 0.9 Nucleated Red Blood Cells % 0.0 Immature Granulocytes # 0.040 H Neutrophils # 4.0 Lymphocytes # 2.6 Monocytes # 0.6 Eosinophils # 0.3 Basophils # 0.1 Nucleated Red Blood Cells # 0.0 Sodium Level 142 Potassium Level 3.5 Chloride Level 107 Carbon Dioxide Level 27 Anion Gap 8 Blood Urea Nitrogen 13 Creatinine 0.65 Est Glomerular Filtrat Rate mL/min Glucose Level 122 Calcium Level 10.2 Subjective 24 Hr Interval Summary Eyes: no complaints ENT: no complaints Respiratory: no complaints Cardiovascular: no complaints Gastrointestinal: constipation Genitourinary: no complaints Musculoskeletal: no complaints Skin: other (wound) Neurologic: no complaints Psychological: nl mood/affect Exam/Review of Systems Exam Vitals Vital Signs Date Temp Pulse Resp B/P (MAP) Pulse Ox O2 O2 Flow FiO2 Time Delivery Rate 12/06/18 98.5 95 18 149/67 96 02:00 (94) 12/05/18 Room Air 13:27 Intake and Output 12/05/18 12/05/18 12/06/18 1515:00 23:00 07:00 IntakeIntake Total 300 ml 400 ml OutputOutput Total 600 ml 160 ml BalanceBalance -300 ml 240 ml Constitutional: alert, well developed Psych: nl mood/affect Eyes: nl lids ENMT: nl external ears & nose Neck: non-tender Respiratory: clear to auscultation Cardiovascular: nl pulses Gastrointestinal: soft, non-tender Musculoskeletal: muscle weakness, range of motion Extremities: normal pulses Neurological: other (alert/responsive) Skin: other (decubs) Lymph: nontender Results Results 24hrs Laboratory Tests Test 12/05/18 05:58 White Blood Count 7.6 Red Blood Count 3.81 L Hemoglobin 12.2 Hematocrit 38.1 Mean Corpuscular Volume 100.0 Mean Corpuscular Hemoglobin 32.0 Mean Corpuscular Hemoglobin Concent 32.0 Red Cell Distribution Width 13.2 Platelet Count 283 Mean Platelet Volume 10.8 H Immature Granulocytes % 0.500 H Neutrophils % 52.4 Lymphocytes % 34.4 Monocytes % 8.0 Eosinophils % 3.8 Basophils % 0.9 Nucleated Red Blood Cells % 0.0 Immature Granulocytes # 0.040 H Neutrophils # 4.0 Lymphocytes # 2.6 Monocytes # 0.6 Eosinophils # 0.3 Basophils # 0.1 Nucleated Red Blood Cells # 0.0 Sodium Level 142 Potassium Level 3.5 Chloride Level 107 Carbon Dioxide Level 27 Anion Gap 8 Blood Urea Nitrogen 13 Creatinine 0.65 Est Glomerular Filtrat Rate mL/min Glucose Level 122 Calcium Level 10.2 Medications Medication Current Medications IV Flush (NS 3 ml) 3 ml PER PROTOCOL IV ; Start 11/14/18 at 00:00 Ondansetron HCl (Zofran Inj) 4 mg Q6H PRN IV NAUSEA/VOMITING; Start 11/14/18 at 00:00 Acetaminophen (Tylenol Tab) 650 mg Q6H PRN PO .PAIN 1-3 OR TEMP Last administered on 12/01/18 21:46; Admin Dose 650 MG; Start 11/14/18 at 00:00 Morphine Sulfate (morphine) 2 mg Q4H PRN IV .PAIN 7-10 Last administered on 12/02/18 17:44; Admin Dose 2 MG; Start 11/14/18 at 00:00 Enoxaparin Sodium (Lovenox) 30 mg DAILY SC Last administered on 11/16/18 08:55; Admin Dose 30 MG; Start 11/14/18 at 09:00; Status Hold Acetaminophen (Tylenol Supp) 650 mg Q6H PRN [place] ELEVATED TEMPERATURE Last administered on 11/14/18 23:33; Admin Dose 650 MG; Start 11/14/18 at 21:30 Clonidine (Catapres) 0.1 mg Q6H PRN PO PRN SBP > 160; Start 11/15/18 at 00:00 Hydralazine HCl (Apresoline) 25 mg Q6 PRN PO PRN SBP > 160 Last administered on 11/19/18 21:38; Admin Dose 25 MG; Start 11/15/18 at 00:00 Famotidine (Pepcid) 20 mg DAILY PO Last administered on 12/05/18 08:46; Admin Dose 20 MG; Start 11/19/18 at 09:00 Sodium Phosphate (Neutra-Phos) 250 mg BID PO Last administered on 12/05/18 20:58; Admin Dose 250 MG; Start 11/21/18 at 09:00 Ascorbic Acid (Vitamin C) 500 mg DAILY PO Last administered on 12/05/18 08:46; Admin Dose 500 MG; Start 11/23/18 at 09:00 Zinc Sulfate (Zinc Sulfate) 220 mg DAILY PO Last administered on 12/05/18 08:46; Admin Dose 220 MG; Start 11/23/18 at 09:00 Multivitamins Therapeutic (Theragran) 1 tab DAILY PO Last administered on 12/05/18 08:46; Admin Dose 1 TAB; Start 11/23/18 at 09:00 Loratadine (Claritin) 10 mg DAILY PO Last administered on 5/2/19at 08:46; Admin Dose 10 MG; Start 11/22/18 at 20:00 Fluocinonide (Lidex 0.05% Cr) 1 applic BID TOP Last administered on 12/05/18at 21:00; Admin Dose 1 APPLIC; Start 11/22/18 at 21:00 Risperidone (Risperdal) 0.5 mg BID PO Last administered on 12/05/18at 20:58; Admin Dose 0.5 MG; Start 11/26/18 at 21:00 Senna (Senokot) 1 tab BID PO Last administered on 12/05/18at 20:58; Admin Dose 1 TAB; Start 12/05/18 at 21:00 JASEN SOTOMAYOR December 06, 2018 03:10
[2018-12-06] MEDS ORDERED: LACTULOSE 30ML CUP PO PRN (03:30)
[2018-12-06 08:00] VITALS: BP 119/71; PULSE 98; RESP 18
[2018-12-06] MEDS: ASCORBIC ACID 500 MG TAB PO SCH (08:50)
[2018-12-06] MEDS: NEUTRA-PHOS 250 MG PACKET PO SCH ×2 (08:50→20:36)
[2018-12-06] MEDS: LORATADINE 10 MG TAB PO SCH (08:50)
[2018-12-06] MEDS: ZINC SULFATE 220 MG CAP PO SCH (08:50)
[2018-12-06] MEDS: MULTIVITAMINS THERAPEUTIC TAB PO SCH (08:50)
[2018-12-06] MEDS: FAMOTIDINE 20 MG TAB PO SCH (08:50)
[2018-12-06] MEDS: RISPERIDONE 1 MG TAB PO SCH ×2 (08:50→20:36)
[2018-12-06] MEDS: FLUOCINONIDE 0.05% 15 GM CR TOP SCH ×2 (08:56→20:38)
[2018-12-06] MEDS: SENNA TAB PO SCH ×2 (08:58→20:36)
--- NOTE | 2018-12-06 11:58 | CONS ---
Assessment/Plan Assessment/Plan Hospital Course (Demo Recall) #Thrombocytopenia -platelets are improving and are now stable and> 200K -this was likely 2/2 sepsis which has improved - DIC unlikely given the normal fibrinogen -TTP unlikely given normal LDH - abdominal ultrasound demonstrates fatty liver -HIV hepatitis are negative #Sepsis -2/2 urosepsis and HCAP -now off antibiotics #ARF -management per nephrology. 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 #History of peripheral vascular disease and abdominal aortic aneurysm - status post endovascular abdominal aortic repair and status post aortobi-iliac endograft placement. Consultation Date/Type/Reason Admit Date/Time Nov 13, 2018 at 23:15 Initial Consult Date 11/18/18 Type of Consult Hematology Reason for Consultation thrombocytopenia/ anemia Requesting Provider: WALDO CLEARY MD Date/Time of Note DATE: 12/06/18 TIME: 11:58 24 HR Interval Summary Free Text/Dictation no acute overnight events. pt tolerating pureed food Exam/Review of Systems Exam Vitals Vital Signs Date Temp Pulse Resp B/P (MAP) Pulse Ox O2 O2 Flow FiO2 Time Delivery Rate 12/06/18 98.0 98 18 119/71 97 08:00 (87) 12/05/18 Room Air 13:27 Intake and Output 12/05/18 12/05/18 12/06/18 1515:00 23:00 07:00 IntakeIntake Total 300 ml 400 ml 236 ml OutputOutput Total 600 ml 160 ml BalanceBalance -300 ml 240 ml 236 ml Constitutional: alert Psych: no complaints, confusion Head: normocephalic Eyes: nl conjunctiva ENMT: nl external ears & nose Neck: supple Respiratory: clear to auscultation Cardiovascular: regular rate and rhythm Gastrointestinal: soft Musculoskeletal: nl extremities to inspection Results Result Diagram: 12/06/18 0557 12/06/18 0557 Results 24hrs Laboratory Tests Test 12/06/18 05:57 White Blood Count 7.3 Red Blood Count 3.63 L Hemoglobin 11.7 L Hematocrit 36.5 L Mean Corpuscular Volume 100.6 Mean Corpuscular Hemoglobin 32.2 Mean Corpuscular Hemoglobin Concent 32.1 Red Cell Distribution Width 13.2 Platelet Count 231 Mean Platelet Volume 11.1 H Immature Granulocytes % 0.400 Neutrophils % 57.0 Lymphocytes % 28.5 Monocytes % 9.6 Eosinophils % 3.9 Basophils % 0.6 Nucleated Red Blood Cells % 0.0 Immature Granulocytes # 0.030 Neutrophils # 4.2 Lymphocytes # 2.1 Monocytes # 0.7 Eosinophils # 0.3 Basophils # 0.0 Nucleated Red Blood Cells # 0.0 Sodium Level 141 Potassium Level 3.8 Chloride Level 107 Carbon Dioxide Level 27 Anion Gap 7 Blood Urea Nitrogen 13 Creatinine 0.59 Est Glomerular Filtrat Rate mL/min Glucose Level 118 Calcium Level 10.0 Medications Medication Current Medications IV Flush (NS 3 ml) 3 ml PER PROTOCOL IV ; Start 11/14/18 at 00:00 Ondansetron HCl (Zofran Inj) 4 mg Q6H PRN IV NAUSEA/VOMITING; Start 11/14/18 at 00:00 Acetaminophen (Tylenol Tab) 650 mg Q6H PRN PO .PAIN 1-3 OR TEMP Last administered on 12/01/18 21:46; Admin Dose 650 MG; Start 11/14/18 at 00:00 Morphine Sulfate (morphine) 2 mg Q4H PRN IV .PAIN 7-10 Last administered on 12/02/18 17:44; Admin Dose 2 MG; Start 11/14/18 at 00:00 Enoxaparin Sodium (Lovenox) 30 mg DAILY SC Last administered on 11/16/18 08:55; Admin Dose 30 MG; Start 11/14/18 at 09:00; Status Hold Acetaminophen (Tylenol Supp) 650 mg Q6H PRN [place] ELEVATED TEMPERATURE Last administered on 11/14/18at 23:33; Admin Dose 650 MG; Start 11/14/18 at 21:30 Clonidine (Catapres) 0.1 mg Q6H PRN PO PRN SBP > 160; Start 11/15/18 at 00:00 Hydralazine HCl (Apresoline) 25 mg Q6 PRN PO PRN SBP > 160 Last administered on 11/19/18at 21:38; Admin Dose 25 MG; Start 11/15/18 at 00:00 Famotidine (Pepcid) 20 mg DAILY PO Last administered on 12/06/18 08:50; Admin Dose 20 MG; Start 11/19/18 at 09:00 Sodium Phosphate (Neutra-Phos) 250 mg BID PO Last administered on 12/06/18 08:50; Admin Dose 250 MG; Start 11/21/18 at 09:00 Ascorbic Acid (Vitamin C) 500 mg DAILY PO Last administered on 12/06/18 08:50; Admin Dose 500 MG; Start 11/23/18 at 09:00 Zinc Sulfate (Zinc Sulfate) 220 mg DAILY PO Last administered on 12/06/18 08:50; Admin Dose 220 MG; Start 11/23/18 at 09:00 Multivitamins Therapeutic (Theragran) 1 tab DAILY PO Last administered on 12/06/18 08:50; Admin Dose 1 TAB; Start 11/23/18 at 09:00 Loratadine (Claritin) 10 mg DAILY PO Last administered on 12/06/18 08:50; Admin Dose 10 MG; Start 11/22/18 at 20:00 Fluocinonide (Lidex 0.05% Cr) 1 applic BID TOP Last administered on 12/06/18 08:56; Admin Dose 1 APPLIC; Start 11/22/18 at 21:00 Risperidone (Risperdal) 0.5 mg BID PO Last administered on 12/06/18 08:50; Admin Dose 0.5 MG; Start 11/26/18 at 21:00 Senna (Senokot) 1 tab BID PO Last administered on 12/06/18 08:58; Admin Dose 1 TAB; Start 12/05/18 at 21:00 Lactulose (Enulose) 10 gm DAILY PRN PO CONSTIPATION; Start 12/06/18 at 03:30 ALYSIA JIM M.D. December 06, 2018 11:58
[2018-12-06] MEDS: ACETAMINOPHEN 325 MG TAB PO PRN (13:05)
[2018-12-06 14:00] VITALS: BP 104/60; PULSE 73; RESP 18
[2018-12-06 19:20] VITALS: BP 137/70; PULSE 76; RESP 18
[2018-12-07 02:00] VITALS: BP 99/63; PULSE 90; RESP 18
[2018-12-07 08:21] VITALS: BP 126/55; PULSE 65; RESP 18
[2018-12-07] MEDS: MULTIVITAMINS THERAPEUTIC TAB PO SCH (08:55)
[2018-12-07] MEDS: ZINC SULFATE 220 MG CAP PO SCH (08:55)
[2018-12-07] MEDS: RISPERIDONE 1 MG TAB PO SCH (08:55)
[2018-12-07] MEDS: FAMOTIDINE 20 MG TAB PO SCH (08:55)
[2018-12-07] MEDS: NEUTRA-PHOS 250 MG PACKET PO SCH (08:55)
[2018-12-07] MEDS: ASCORBIC ACID 500 MG TAB PO SCH (08:55)
[2018-12-07] MEDS: LORATADINE 10 MG TAB PO SCH (08:55)
[2018-12-07] MEDS: SENNA TAB PO SCH (08:55)
[2018-12-07] MEDS: FLUOCINONIDE 0.05% 15 GM CR TOP SCH (08:56)
--- NOTE | 2018-12-07 12:33 | PN ---
Date/Time of Note Date/Time of Note DATE: 12/07/18 TIME: 12:32 Assessment/Plan VTE Prophylaxis Risk score (from Ns)>0 risk: 6 SCD applied (from Nsg): Yes Pharmacological prophylaxis: LMWH Lines/Catheters IV Catheter Type (from Nrsg): Saline Lock Urinary Cath still in place: Yes Reason Cath still needed: skin wounds contaminated by urine Assessment/Plan Hospital Course - Constipation - Fleets enema now -Sepsis secondary to urinary tract infection, resolving continue antibiotics. Dr. Griffiths is following in infection disease consultation. -Alpha hemolytic strep bacteremia, 2D echo with no vegetation, continue Rocephin for 2 weeks per ID recommendations. -Proteus M UTI, continue Rocephin. -Acute metabolic encephalopathy. No evidence of acute intracranial hemorrhage, infarcts, or acute intracranial pathology per CT brain. -Cardiomegaly with ejection fraction of 60% -Mitral stenosis -Hypernatremia, resolved. Dr. Edwards is following in nephrology consultation. -Acute kidney injury -Thrombocytopenia, resolving. Dr. Herndon is following in hematology consultation. -Dysphagia, continue pureed diet, aspiration precaution. -Multiple stage I pressure ulcers, air mattress, off loading, optimize nutrition. Result Diagram: 12/07/18 0704 12/07/18 0704 Results 24hrs Laboratory Tests Test 12/07/18 07:04 White Blood Count 8.6 Red Blood Count 3.31 L Hemoglobin 10.7 L Hematocrit 33.1 L Mean Corpuscular Volume 100.0 Mean Corpuscular Hemoglobin 32.3 Mean Corpuscular Hemoglobin Concent 32.3 Red Cell Distribution Width 13.5 Platelet Count 211 Mean Platelet Volume 11.0 H Immature Granulocytes % 0.200 Neutrophils % 64.9 Lymphocytes % 23.7 Monocytes % 6.8 Eosinophils % 3.8 Basophils % 0.6 Nucleated Red Blood Cells % 0.0 Immature Granulocytes # 0.020 Neutrophils # 5.6 Lymphocytes # 2.0 Monocytes # 0.6 Eosinophils # 0.3 Basophils # 0.1 Nucleated Red Blood Cells # 0.0 Sodium Level 141 Potassium Level 3.7 Chloride Level 107 Carbon Dioxide Level 29 Anion Gap 5 Blood Urea Nitrogen 11 Creatinine 0.60 Est Glomerular Filtrat Rate mL/min Glucose Level 99 Calcium Level 9.2 Subjective 24 Hr Interval Summary Free Text/Dictation Patient complains of some generalized pain Exam/Review of Systems Exam Vitals Vital Signs Date Temp Pulse Resp B/P (MAP) Pulse Ox O2 O2 Flow FiO2 Time Delivery Rate 12/07/18 97.6 65 18 126/55 98 08:21 (78) 12/05/18 Room Air 13:27 Intake and Output 12/06/18 12/06/18 12/07/18 1515:00 23:00 07:00 IntakeIntake Total 320 ml 240 ml OutputOutput Total 300 ml 700 ml BalanceBalance 320 ml -60 ml -700 ml Constitutional: well developed Head: normocephalic, atraumatic Neck: supple Respiratory: diminished breath sounds Cardiovascular: regular rate and rhythm Gastrointestinal: soft, non-tender Extremities: normal pulses Results Results 24hrs Laboratory Tests Test 12/07/18 07:04 White Blood Count 8.6 Red Blood Count 3.31 L Hemoglobin 10.7 L Hematocrit 33.1 L Mean Corpuscular Volume 100.0 Mean Corpuscular Hemoglobin 32.3 Mean Corpuscular Hemoglobin Concent 32.3 Red Cell Distribution Width 13.5 Platelet Count 211 Mean Platelet Volume 11.0 H Immature Granulocytes % 0.200 Neutrophils % 64.9 Lymphocytes % 23.7 Monocytes % 6.8 Eosinophils % 3.8 Basophils % 0.6 Nucleated Red Blood Cells % 0.0 Immature Granulocytes # 0.020 Neutrophils # 5.6 Lymphocytes # 2.0 Monocytes # 0.6 Eosinophils # 0.3 Basophils # 0.1 Nucleated Red Blood Cells # 0.0 Sodium Level 141 Potassium Level 3.7 Chloride Level 107 Carbon Dioxide Level 29 Anion Gap 5 Blood Urea Nitrogen 11 Creatinine 0.60 Est Glomerular Filtrat Rate mL/min Glucose Level 99 Calcium Level 9.2 Medications Medication Current Medications IV Flush (NS 3 ml) 3 ml PER PROTOCOL IV ; Start 11/14/18 at 00:00 Ondansetron HCl (Zofran Inj) 4 mg Q6H PRN IV NAUSEA/VOMITING; Start 11/14/18 at 00:00 Acetaminophen (Tylenol Tab) 650 mg Q6H PRN PO .PAIN 1-3 OR TEMP Last administered on 12/06/18at 13:05; Admin Dose 650 MG; Start 11/14/18 at 00:00 Morphine Sulfate (morphine) 2 mg Q4H PRN IV .PAIN 7-10 Last administered on 12/02/18at 17:44; Admin Dose 2 MG; Start 11/14/18 at 00:00 Enoxaparin Sodium (Lovenox) 30 mg DAILY SC Last administered on 11/16/18 08:55; Admin Dose 30 MG; Start 11/14/18 at 09:00; Status Hold Acetaminophen (Tylenol Supp) 650 mg Q6H PRN [place] ELEVATED TEMPERATURE Last administered on 11/14/18 23:33; Admin Dose 650 MG; Start 11/14/18 at 21:30 Clonidine (Catapres) 0.1 mg Q6H PRN PO PRN SBP > 160; Start 11/15/18 at 00:00 Hydralazine HCl (Apresoline) 25 mg Q6 PRN PO PRN SBP > 160 Last administered on 11/19/18 21:38; Admin Dose 25 MG; Start 11/15/18 at 00:00 Famotidine (Pepcid) 20 mg DAILY PO Last administered on 12/07/18 08:55; Admin Dose 20 MG; Start 11/19/18 at 09:00 Sodium Phosphate (Neutra-Phos) 250 mg BID PO Last administered on 12/07/18 08:55; Admin Dose 250 MG; Start 11/21/18 at 09:00 Ascorbic Acid (Vitamin C) 500 mg DAILY PO Last administered on 12/07/18 08:55; Admin Dose 500 MG; Start 11/23/18 at 09:00 Zinc Sulfate (Zinc Sulfate) 220 mg DAILY PO Last administered on 12/07/18 08:55; Admin Dose 220 MG; Start 11/23/18 at 09:00 Multivitamins Therapeutic (Theragran) 1 tab DAILY PO Last administered on 12/07/18 08:55; Admin Dose 1 TAB; Start 11/23/18 at 09:00 Loratadine (Claritin) 10 mg DAILY PO Last administered on 12/07/18 08:55; Admin Dose 10 MG; Start 11/22/18 at 20:00 Fluocinonide (Lidex 0.05% Cr) 1 applic BID TOP Last administered on 12/07/18 08:56; Admin Dose 1 APPLIC; Start 11/22/18 at 21:00 Risperidone (Risperdal) 0.5 mg BID PO Last administered on 12/07/18 08:55; Admin Dose 0.5 MG; Start 11/26/18 at 21:00 Senna (Senokot) 1 tab BID PO Last administered on 12/07/18at 08:55; Admin Dose 1 TAB; Start 12/05/18 at 21:00 Lactulose (Enulose) 10 gm DAILY PRN PO CONSTIPATION; Start 12/06/18 at 03:30 CARLOS A LLANES December 07, 2018 12:33
--- NOTE | 2018-12-07 13:01 | CONS ---
Assessment/Plan Assessment/Plan Assessment/Plan (Daily) #Thrombocytopenia. platelets-211 -platelets are improving and are now stable and> 200K -this was likely 2/2 sepsis which has improved - DIC unlikely given the normal fibrinogen -TTP unlikely given normal LDH - abdominal ultrasound demonstrates fatty liver -HIV hepatitis are negative #Sepsis -2/2 urosepsis and HCAP -now off antibiotics #ARF -management per nephrology. 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 #History of peripheral vascular disease and abdominal aortic aneurysm - status post endovascular abdominal aortic repair and status post aortobi-iliac endograft placement. Patient seen in collaboration with Dr Herndon Consultation Date/Type/Reason Admit Date/Time Nov 13, 2018 at 23:15 Initial Consult Date 11/18/18 Type of Consult ONCOLOGY Reason for Consultation Thrombocytopenia Requesting Provider: WALDO CLEARY MD Date/Time of Note DATE: 12/07/18 TIME: 13:00 24 HR Interval Summary Free Text/Dictation feels better no new events reported last night dw staff Constitutional: requiring O2 Detailed Summary Eyes: no complaints ENT: no complaints Respiratory: no complaints Cardiovascular: no complaints Gastrointestinal: no complaints Genitourinary: no complaints Musculoskeletal: restricted range of motion Neurologic: no complaints Lymphatic: no complaints Psychological: nl mood/affect Immunologic: no complaints Exam/Review of Systems Exam Vitals Vital Signs Date Temp Pulse Resp B/P (MAP) Pulse Ox O2 O2 Flow FiO2 Time Delivery Rate 12/07/18 97.6 65 18 126/55 98 08:21 (78) 12/05/18 Room Air 13:27 Intake and Output 12/06/18 12/06/18 12/07/18 1515:00 23:00 07:00 IntakeIntake Total 320 ml 240 ml OutputOutput Total 300 ml 700 ml BalanceBalance 320 ml -60 ml -700 ml Constitutional: alert, well developed, obese Psych: nl mood/affect Head: atraumatic Eyes: nl lids, nl sclera ENMT: nl external ears & nose Neck: non-tender Respiratory: clear to auscultation Neurological: nl speech, other (alert/responsive) Results Result Diagram: 12/07/18 0704 12/07/18 0704 Results 24hrs Laboratory Tests Test 12/07/18 07:04 White Blood Count 8.6 Red Blood Count 3.31 L Hemoglobin 10.7 L Hematocrit 33.1 L Mean Corpuscular Volume 100.0 Mean Corpuscular Hemoglobin 32.3 Mean Corpuscular Hemoglobin Concent 32.3 Red Cell Distribution Width 13.5 Platelet Count 211 Mean Platelet Volume 11.0 H Immature Granulocytes % 0.200 Neutrophils % 64.9 Lymphocytes % 23.7 Monocytes % 6.8 Eosinophils % 3.8 Basophils % 0.6 Nucleated Red Blood Cells % 0.0 Immature Granulocytes # 0.020 Neutrophils # 5.6 Lymphocytes # 2.0 Monocytes # 0.6 Eosinophils # 0.3 Basophils # 0.1 Nucleated Red Blood Cells # 0.0 Sodium Level 141 Potassium Level 3.7 Chloride Level 107 Carbon Dioxide Level 29 Anion Gap 5 Blood Urea Nitrogen 11 Creatinine 0.60 Est Glomerular Filtrat Rate mL/min Glucose Level 99 Calcium Level 9.2 Medications Medication Current Medications IV Flush (NS 3 ml) 3 ml PER PROTOCOL IV ; Start 11/14/18 at 00:00 Ondansetron HCl (Zofran Inj) 4 mg Q6H PRN IV NAUSEA/VOMITING; Start 11/14/18 at 00:00 Acetaminophen (Tylenol Tab) 650 mg Q6H PRN PO .PAIN 1-3 OR TEMP Last administered on 12/06/18at 13:05; Admin Dose 650 MG; Start 11/14/18 at 00:00 Morphine Sulfate (morphine) 2 mg Q4H PRN IV .PAIN 7-10 Last administered on 12/02/18at 17:44; Admin Dose 2 MG; Start 11/14/18 at 00:00 Enoxaparin Sodium (Lovenox) 30 mg DAILY SC Last administered on 11/16/18at 08:55; Admin Dose 30 MG; Start 11/14/18 at 09:00; Status Hold Acetaminophen (Tylenol Supp) 650 mg Q6H PRN [place] ELEVATED TEMPERATURE Last administered on 11/14/18at 23:33; Admin Dose 650 MG; Start 11/14/18 at 21:30 Clonidine (Catapres) 0.1 mg Q6H PRN PO PRN SBP > 160; Start 11/15/18 at 00:00 Hydralazine HCl (Apresoline) 25 mg Q6 PRN PO PRN SBP > 160 Last administered on 11/19/18 21:38; Admin Dose 25 MG; Start 11/15/18 at 00:00 Famotidine (Pepcid) 20 mg DAILY PO Last administered on 12/07/18 08:55; Admin Dose 20 MG; Start 11/19/18 at 09:00 Sodium Phosphate (Neutra-Phos) 250 mg BID PO Last administered on 12/07/18 08:55; Admin Dose 250 MG; Start 11/21/18 at 09:00 Ascorbic Acid (Vitamin C) 500 mg DAILY PO Last administered on 12/07/18 08:55; Admin Dose 500 MG; Start 11/23/18 at 09:00 Zinc Sulfate (Zinc Sulfate) 220 mg DAILY PO Last administered on 12/07/18 08:55; Admin Dose 220 MG; Start 11/23/18 at 09:00 Multivitamins Therapeutic (Theragran) 1 tab DAILY PO Last administered on 12/07/18 08:55; Admin Dose 1 TAB; Start 11/23/18 at 09:00 Loratadine (Claritin) 10 mg DAILY PO Last administered on 12/07/18 08:55; Admin Dose 10 MG; Start 11/22/18 at 20:00 Fluocinonide (Lidex 0.05% Cr) 1 applic BID TOP Last administered on 12/07/18 08:56; Admin Dose 1 APPLIC; Start 11/22/18 at 21:00 Risperidone (Risperdal) 0.5 mg BID PO Last administered on 12/07/18 08:55; Admin Dose 0.5 MG; Start 11/26/18 at 21:00 Senna (Senokot) 1 tab BID PO Last administered on 12/07/18 08:55; Admin Dose 1 TAB; Start 12/05/18 at 21:00 Lactulose (Enulose) 10 gm DAILY PRN PO CONSTIPATION; Start 12/06/18 at 03:30 JASEN SOTOMAYOR December 07, 2018 13:01
--- NOTE | 2018-12-08 13:45 | DS ---
Date/Time of Note Date/Time of Note DATE: 12/08/18 TIME: 13:43 Discharge Summary Admission/Discharge Info Admit Date/Time Nov 13, 2018 at 23:15 Discharge Date/Time December 07, 2018 at 13:15 Discharge Diagnosis - Constipation - Fleets enema now -Sepsis secondary to urinary tract infection, resolving continue antibiotics. Dr. Griffiths is following in infection disease consultation. -Alpha hemolytic strep bacteremia, 2D echo with no vegetation, continue Rocephin for 2 weeks per ID recommendations. -Proteus M UTI, continue Rocephin. -Acute metabolic encephalopathy. No evidence of acute intracranial hemorrhage, infarcts, or acute intracranial pathology per CT brain. -Cardiomegaly with ejection fraction of 60% -Mitral stenosis -Hypernatremia, resolved. Dr. Edwards is following in nephrology consultation. -Acute kidney injury -Thrombocytopenia, resolving. Dr. Herndon is following in hematology consultation. -Dysphagia, continue pureed diet, aspiration precaution. -Multiple stage I pressure ulcers, air mattress, off loading, optimize nutrition. Patient Condition: Fair Consults Infectious Disease Nephrology Procedures none Hx of Present Illness Patient comes in with metabolic encephalopathy and was found to have an urinary tract infection. Hospital Course Patient comes in with metabolic encephalopathy and was found to have an urinary tract infection. Patient was treated with antibiotics and when patient was improved, she was sent back to SNF from where she came - Constipation - Fleets enema now -Sepsis secondary to urinary tract infection, resolving continue antibiotics. Dr. Griffiths is following in infection disease consultation. -Alpha hemolytic strep bacteremia, 2D echo with no vegetation, continue Rocephin for 2 weeks per ID recommendations. -Proteus M UTI, continue Rocephin. -Acute metabolic encephalopathy. No evidence of acute intracranial hemorrhage, infarcts, or acute intracranial pathology per CT brain. -Cardiomegaly with ejection fraction of 60% -Mitral stenosis -Hypernatremia, resolved. Dr. Edwards is following in nephrology consultation. -Acute kidney injury -Thrombocytopenia, resolving. Dr. Herndon is following in hematology consultation. -Dysphagia, continue pureed diet, aspiration precaution. -Multiple stage I pressure ulcers, air mattress, off loading, optimize nutrition. Home Meds Reported Medications Spironolactone* (Aldactone*) 25 Mg Tablet, 25 MG PO DAILY for HTN, #30 TAB 11/14/18 Quetiapine Fumarate* (Seroquel* XR) 150 Mg Tab.sr.24h, 150 MG PO TID, #30 TAB 11/14/18 Sennosides* (Senna Lax*) 8.6 Mg Tablet, 2 TAB PO QHS, TAB 11/14/18 Ropinirole Hcl* (Ropinirole Hcl*) 1 Mg Tablet, 1 MG PO BID for RLS, TAB 11/14/18 Ranitidine Hcl* (Ranitidine Hcl*) 150 Mg Tablet, 150 MG PO Q12, #60 TAB 11/14/18 Potassium Chloride* (Potassium Chloride*) 20 Meq/15 Ml Liquid, 20 MEQ PO DAILY, ML 11/14/18 Polyethylene Glycol* (Polyethylene Glycol*) 17 Gm Powd.pack, 17 GM PO DAILY, #30 PACKET 11/14/18 Clopidogrel Bisulfate (Clopidogrel) 75 Mg Tablet, 75 MG PO DAILY, #30 TAB 11/14/18 Nystatin (Nystatin) 100,000 Unit/1 Ml Oral.susp, 5 ML PO Q6, #60 ML 11/14/18 Multivitamins W-Minerals (Support) 237 Ml Liquid, 30 ML PO DAILY for SUPPLEMENT 11/14/18 Magnesium Hydroxide* (Milk Of Magnesia*) 400 Mg/5 Ml Oral.susp, 30 ML PO Q12H for CONSTIPATION, ML 11/14/18 Lorazepam* (Lorazepam*) 0.5 Mg Tablet, 0.5 MG PO Q6 PRN for ANXIETY, TAB 11/14/18 Loratadine* (Loratadine*) 10 Mg Tablet, 10 MG PO DAILY for ALLERGY, #30 TAB 11/14/18 Levothyroxine Sodium* (Levothyroxine Sodium*) 50 Mcg Tablet, 50 MCG PO BEFORE BREAKFAST, #30 TAB 11/14/18 Ipratropium-Albuterol (Ipratropium-Albuterol) 0.5-3 Mg/3 Ml Ampul.neb, 3 ML INHALATION Q6, #30 VIAL 11/14/18 Hydrocodone/Acetaminophen ([place] 10-325 Tablet) 1 Each Tablet, 2 EACH PO Q4, TAB GIVE 2 TABLET BY MOUTH EVERY 4HOURS NEEDED FOR SEVERE PAIN 6-10 11/14/18 Hydrocodone/Acetaminophen ([place] 10-325 Tablet) 1 Each Tablet, 1 EACH PO Q4H, TAB 11/14/18 Guaifenesin* (Tussin*) 100 Mg/5 Ml Syrup, 10 ML PO Q4 PRN for COUGH, ML 11/14/18 Furosemide* (Furosemide*) 20 Mg Tablet, 20 MG PO DAILY, #60 TAB GIVE 20MG BY MOUTH ONE TIME A DAY EVERY OTHER DAYRELATED TO HEART FAILURE 11/14/18 Folic Acid* (Folic Acid*) 1 Mg Tablet, 1 MG PO DAILY for SUPPLEMENT, TAB 11/14/18 Na Phos,M-B/Na Phos,Di-Ba (Fleet Enema Extra) 230 Ml Enema, 230 ML RC 72H PRN for CONSTIPATION, ENEMA 11/14/18 Escitalopram Oxalate* (Escitalopram Oxalate*) 10 Mg Tablet, 10 MG PO DAILY for DEPRESSION, #30 TAB 11/14/18 Donepezil* (Donepezil*) 10 Mg Tablet, 10 MG PO QHS for DEMENTIA, #30 TAB 11/14/18 Docusate Sodium* (Docusate Sodium* Liq) 50 Mg/5 Ml Liquid, 100 MG GTB Q12H for CONSTIPATION, ML 11/14/18 Carvedilol* (Coreg*) 3.125 Mg Tablet, 6.25 MG PO BID for HTN, #60 TAB 11/14/18 Clonazepam* (Clonazepam*) 0.5 Mg Tablet, 0.5 MG PO BID, TAB 11/14/18 Bisacodyl* (Bisacodyl*) 10 Mg Supp, 10 MG DE DAILY, SUPP 11/14/18 Diphenhydramine Hcl* (Benadryl*) 50 Mg Cap, 50 MG PO Q6 PRN for ITCHING, CAP 11/14/18 Aspirin* (Aspirin* Chew) 81 Mg Tab.chew, 81 MG PO DAILY, TAB.CHEW 11/14/18 Ascorbic Acid* (Vitamin C*) 500 Mg Capsule.sa, 500 MG PO DAILY, CAP 11/14/18 Albuterol Sulfate* (Albuterol Sulfate* Neb) 0.083%-3 Ml Neb, 1.25 MG NEB Q6H PRN for BRONCHOSPASM/WHEEZING, #30 VIAL 11/14/18 Acetaminophen* (Acetaminophen*) 325 Mg Tablet, 650 MG PO Q4H PRN for PAIN AND OR ELEVATED TEMP, #30 TAB 11/14/18 Primary Care Provider MD MARIO ALBERTO Mcguire LOREN Y December 08, 2018 13:45
== END 2018-12-07 13:15 | DRG 871 ==
LOC: E/R 21:18 → 6WM 23:15 → ICU 11-14 22:52 → 2NE 11-17 14:59 → 5EC 11-26 23:20
PROVIDERS: ADMIT Internal Medicine; ATTEND Internal Medicine
DX: A41.9 Sepsis, unspecified organism (principal); G92 Toxic encephalopathy; J96.00 Acute respiratory failure, unspecified whether with hypoxia or hypercapnia; N17.9 Acute kidney failure, unspecified; E87.0 Hyperosmolality and hypernatremia; N39.0 Urinary tract infection, site not specified; T81.41XA Infection following a procedure, superficial incisional surgical site, initial encounter; E83.39 Other disorders of phosphorus metabolism; K59.00 Constipation, unspecified; R13.10 Dysphagia, unspecified; D69.6 Thrombocytopenia, unspecified; Z79.82 Long term (current) use of aspirin; F03.90 Unspecified dementia, unspecified severity, without behavioral disturbance, psychotic disturbance, mood disturbance, and anxiety; L89.91 Pressure ulcer of unspecified site, stage 1; I05.0 Rheumatic mitral stenosis; N73.8 Other specified female pelvic inflammatory diseases
CPT/HCPCS: 36415; 36600; 70450; 71045; 76705; 76775; 80048; 80053; 80202; 81001; 81003; 82043; 82565; 82803; 82962; 83036; 83615; 83735; 83935; 84100; 84134; 84155; 84300; 84443; 84520; 85025; 85049; 85362; 85378; 85384; 85610; 85670; 85730; 86703; 86704; 86709; 86803; 87081; 87086; 87340; 92526; 92610; 93306; 97110; 97161; 97530; J0696; J1650; J2185; J2270; J2543; J3370; J3475; J3480; J7030; J7050; J7070